=== PATIENT | female | born 1975 | race Caucasian/White ===

== ENCOUNTER 2016-08-07 13:21 | Emergency (ER) | payer BC ==
[2016-08-07 13:29] VITALS: BP 114/86
--- NOTE | 2016-08-07 13:29 | ER Document Report ---
ED Medical Screen (RME) - General Stated Complaint: COLD SYMPTOMS Mode of Arrival: Ambulatory Information source: Patient Notes: Pt c/o occ productive cough. Pt reports fever for past 2 days, as high as 102. TRAVEL OUTSIDE OF THE [place] IN LAST 30 DAYS: No - Related Data Allergies/Adverse Reactions: Penicillins Allergy (Mild, Verified 08/07/16 13:26) sulfamethoxazole [From Bactrim] Allergy (Verified 08/07/16 13:26) trimethoprim [From Bactrim] Allergy (Verified 08/07/16 13:26) Past Medical History - Social History Family history: DM, Thyroid Disfunction, Other - scoliosis Endocrine Medical History: Reports: Hx Hypothyroidism Psychiatric Medical History: Reports: Hx Depression Past Surgical History: Reports: Hx Abdominal Surgery, Hx Section - 2, Hx Gynecologic Surgery - LEEP, Hx Umbilical Hernia - Immunizations Hx Diphtheria, Pertussis, Tetanus Vaccination: - unk Physical Exam - General General appearance: Appears well, Alert In distress: None - Respiratory Respiratory status: No respiratory distress
--- NOTE | 2016-08-07 13:38 | ER Document Report ---
[id number] 4d COLD SYMPTOMS Mode of Arrival: Ambulatory Notes: The patient is a 40-year-old female, current smoker, presents with 2 days of cough, intermittent fever and chest congestion. She is also having a small amount of watery diarrhea. She denies sick contacts, nasal congestion, nausea, vomiting, recent travel, abdominal pain, hemoptysis or rash. TRAVEL OUTSIDE OF THE [place] IN LAST 30 DAYS: No - Related Data Allergies/Adverse Reactions: Penicillins Allergy (Mild, Verified 08/07/16 13:26) sulfamethoxazole [From Bactrim] Allergy (Verified 08/07/16 13:26) trimethoprim [From Bactrim] Allergy (Verified 08/07/16 13:26) Past Medical History - General Information source: Patient - Social History Smoking Status: Current Every Day Smoker Chew tobacco use (# tins/day): No Smoking Education Provided: Yes - Patient counseled about smoking cessation for 5 minutes. Frequency of alcohol use: None Drug Abuse: None Family History: CVA, DM, Hypertension, Thyroid Disfunction Patient has suicidal ideation: No Patient has homicidal ideation: No Endocrine Medical History: Reports: Hx Hypothyroidism Psychiatric Medical History: Reports: Hx Depression Past Surgical History: Reports: Hx Abdominal Surgery, Hx Section - 2, Hx Gynecologic Surgery - LEEP, Hx Umbilical Hernia - Immunizations Hx Diphtheria, Pertussis, Tetanus Vaccination: - unk Hx Pneumococcal Vaccination: 08/01/00 Review of Systems - Review of Systems Notes: REVIEW OF SYSTEMS: CONSTITUTIONAL: +fevers, -chills EENT: Denies eye, ear, throat, or mouth pain or symptoms. Denies nasal or sinus congestion. CARDIOVASCULAR: Denies chest pain, syncope. RESPIRATORY: +cough, cold, and chest congestion. Denies shortness of breath, difficulty breathing, or wheezing. GASTROINTESTINAL: Denies abdominal pain. Denies nausea, vomiting, or diarrhea. Denies constipation. GENITOURINARY: Denies difficulty urinating, painful urination, burning, frequency, or blood in urine. MUSCULOSKELETAL: Denies neck or back pain or joint pain or swelling. SKIN: Denies rash or skin lesions. HEMATOLOGIC: Denies easy bruising or bleeding. LYMPHATIC: Denies swollen, enlarged glands. NEUROLOGICAL: Denies altered mental status or loss of consciousness. Denies headache. Denies weakness or paralysis or loss of use of either side. Denies problems with gait or speech. Denies sensory or motor loss. PSYCHIATRIC: Denies anxiety or stress or depression. ALL OTHER SYSTEMS REVIEWED AND NEGATIVE. Physical Exam - Vital signs Vitals: Temp Pulse Resp BP Pulse Ox 98.0 F 99 20 114/86 H 97 08/07/16 13:27 08/07/16 13:27 08/07/16 13:27 08/07/16 13:27 08/07/16 13:27 - Notes Notes: PHYSICAL EXAMINATION: GENERAL: Well-appearing, well-nourished and in no acute distress. HEAD: Atraumatic, normocephalic. EYES: Pupils equal round and reactive to light, extraocular movements intact, sclera anicteric, conjunctiva are normal. ENT: nares patent, oropharynx clear without exudates. Moist mucous membranes. NECK: Normal range of motion, supple without lymphadenopathy LUNGS: Mild end expiratory wheezing. No increased work of breathing. HEART: Regular rate and rhythm without murmurs ABDOMEN: Soft, nontender, normoactive bowel sounds. No guarding, no rebound. No masses appreciated. EXTREMITIES: Normal range of motion, no pitting or edema. No cyanosis. NEUROLOGICAL: Cranial nerves grossly intact. Normal speech, normal gait. Normal sensory, motor, and reflex exams. PSYCH: Normal mood, normal affect. SKIN: Warm, Dry, normal turgor, no rashes or lesions noted. Course - Re-evaluation Re-evalutation: No evidence of pneumonia on chest x-ray. Patient is in no respiratory distress. Will treat with prednisone and albuterol for viral bronchitis with return precautions. Also counseled patient about smoking cessation for 5 minutes. - Vital Signs Vital signs: Temp Pulse Resp BP Pulse Ox 98.0 F 99 16 114/86 H 97 08/07/16 13:27 08/07/16 13:27 08/07/16 13:45 08/07/16 13:27 08/07/16 13:27 - Diagnostic Test Radiology reviewed: Image reviewed, Reports reviewed Radiology results interpreted by me: NAD Discharge - Discharge Clinical Impression: Viral bronchitis Condition: Good Disposition: HOME, SELF-CARE Additional Instructions: UPPER RESPIRATORY ILLNESS: You have a viral infection of the respiratory passages -- a "cold." This common infection causes nasal congestion, drainage, and often sore throat and cough. It is highly contagious. The disease usually lasts about 10 to 14 days. There is no "cure" for the viral infection -- it must run its course. If there is a complication, such as bacterial infection in the nose, sinuses, middle ear, or bronchial tubes, antibiotics may be required. The antibiotics won't affect the virus. Drink plenty of fluids. A humidifier may help. An expectorant medication or decongestant may make you more comfortable. Use acetaminophen or ibuprofen for fever or aches. See the doctor if fever persists over two days, if there is any significant worsening of your symptoms, or if you simply fail to improve as expected. BRONCHOSPASM: You have tightness in the bronchial tubes, called bronchospasm. This often occurs with bronchial infections. Allergies, inhaled chemicals, and polluted or cold air can also provoke bronchospasm. It's more likely in patients with asthma in the family. Emergency treatment of bronchospasm may include adrenaline shots or bronchodilator aerosol. You may feel lightheaded and have a rapid pulse for an hour or two. Rest and get plenty of fluids. At home, we'll treat you with a bronchodilator inhaler. Antibiotics and corticosteroids may be required for some patients. Until you recover, avoid chemical fumes, dusts, pollens, and exercising in very cold or dry air. If you smoke, stop now!! If you develop a fever, increased wheezing, chest pain, or severe shortness of breath, you should contact the doctor immediately. INHALED BRONCHODILATORS: You have received a treatment of and/or prescription for an inhaled bronchodilator -- a medication which stimulates the airways in the lung to dilate. This improves the flow of air in asthma, bronchitis, and emphysema. These medicines have some similarity to adrenaline, and can cause similar side effects: shakiness, racing heart, and a sense of nervousness. These side effects decrease with time. Contact your doctor if these side effects are severe. Do not over-use the medicine. Too-frequent use of the inhaler may make it ineffective. Call your doctor if the inhaler is not controlling your symptoms at the prescribed doses. STEROID MEDICATION: You have been given an injection of or oral medicine of the cortisone/ steroid class. This medication is used to control inflammation or allergy. Frank t is usually only given for a short period of time, until the acute process subsides. There are usually no side effects from short-term use of cortisone-like medications. Some persons feel an increased sense of well-being and are not sleepy at bedtime. Long-term use of cortisone medications is best avoided, unless required for a severe condition. If your condition does not remit, or relapses after the course of corticosteroid medication, you should consult your physician. USE OF ACETAMINOPHEN (Tylenol): Acetaminophen may be taken for pain relief or fever control. It's much safer than aspirin, offering a wider range of "safe" dosages. It is safe during . Some brand names are Tylenol, Panadol, Datril, Anacin 3, Tempra, and Liquiprin. Acetaminophen can be repeated every four hours. The following are maximum recommended dosages: >89 pounds or adults 650 mg to 900 mg Acetaminophen can be repeated every four hours. Maximum dose not to exceed 4000 mg a day. SMOKING: If you smoke, you should stop smoking. The tar and chemicals in cigarette smoke are harmful. Smoking has been shown to cause: emphysema chronic bronchitis lung cancer mouth and throat cancer stomach and pancreas cancer premature aging defects In addition, smoking increases ear and lung infections in children of smokers. FOLLOW-UP CARE: If you have been referred to a physician for follow-up care, call the physician s office for an appointment as you were instructed or within the next two days. If you experience worsening or a significant change in your symptoms, notify the physician immediately or return to the Emergency Department at any time for re-evaluation. Prescriptions: Albuterol Sulfate [Proair HFA Inhalation Aerosol 8.5 gm MDI] 2 puff IH Q4H PRN # 1 mdi PRN Reason: Prednisone 50 mg PO DAILY #5 tablet Forms: Return to Work
[2016-08-07] MEDS ORDERED: IPRATROPIUM/ALBUTEROL 0.5-2.5 MG/3 ML AMPUL NEB ONE (14:02)
[2016-08-07] MEDS ORDERED: PREDNISONE 20 MG TABLET PO ONE (14:02)
== END 2016-08-07 15:06 | disposition home or self-care (01) ==
LOC: ER 13:21
DX: J20.8 Acute bronchitis due to other specified organisms (principal); F17.200 Nicotine dependence, unspecified, uncomplicated; Z88.0 Allergy status to penicillin; Z88.3 Allergy status to other anti-infective agents
CPT/HCPCS: 94640; 99283; 71020; J7512; J7620

== ENCOUNTER 2016-10-06 04:05 | Emergency (ER) | payer BC ==
[2016-10-06] MEDS ORDERED: HYDROCODONE/ACETAMINOPHEN 5-325 MG 6 TAB/DSPK PO PRN (04:41)
[2016-10-06] MEDS ORDERED: IBUPROFEN 600 MG TABLET PO ONE (04:41)
[2016-10-06] MEDS ORDERED: CLINDAMYCIN HCL 150 MG CAPSULE PO ONE (04:41)
--- NOTE | 2016-10-06 04:42 | ER Document Report ---
ED General - General Chief Complaint: Toothache Stated Complaint: TOOTHACHE Notes: Patient is a 40-year-old female who presents with complaints of dull, constant, throbbing pain in the left lower molar that has been present for the past 1 week. States the pain is getting progressively worse since onset. She has not yet seen a dentist for this complaint but states she plans on contacting multiple dentist today to see where she can get in most quickly. She has not noted any significant facial swelling. No difficulty swallowing or breathing. Nothing improves her pain. States that eating or drinking worsens the pain. She is not had any fever. Denies history of similar symptoms in the past. TRAVEL OUTSIDE OF THE [place] IN LAST 30 DAYS: No - Related Data Allergies/Adverse Reactions: Penicillins Allergy (Mild, Verified 08/07/16 13:26) sulfamethoxazole [From Bactrim] Allergy (Verified 08/07/16 13:26) trimethoprim [From Bactrim] Allergy (Verified 08/07/16 13:26) Past Medical History - Social History Smoking Status: Unknown if Ever Smoked Family History: CVA, DM, Hypertension, Thyroid Disfunction Patient has suicidal ideation: No Patient has homicidal ideation: No Endocrine Medical History: Reports: Hx Hypothyroidism Renal/ Medical History: Denies: Hx Peritoneal Dialysis Psychiatric Medical History: Reports: Hx Depression Past Surgical History: Reports: Hx Abdominal Surgery - umbilical hernia x2, Hx Section - 2, Hx Gynecologic Surgery - LEEP, Hx Umbilical Hernia - Immunizations Hx Diphtheria, Pertussis, Tetanus Vaccination: - unk Hx Pneumococcal Vaccination: 08/01/00 Physical Exam - Vital signs Vitals: Pulse Resp BP Pulse Ox 76 20 145/88 H 99 10/06/16 04:57 10/06/16 04:57 10/06/16 04:57 10/06/16 04:57 Course - Re-evaluation Re-evalutation: 10/06/16 04:41 Presentation is most consistent with likely an infected tooth. Airway is patent. Vitals within normal limits. Patient is able swallow without any difficulty. There is no significant facial swelling. Patient will be started on antibiotics and a limited number of pain medications. I've instructed to follow-up with dentistry as earliest ability for definitive management. Return precautions and follow-up recommendations have been discussed at length. - Vital Signs Vital signs: Temp Pulse Resp BP Pulse Ox 76 20 145/88 H 99 10/06/16 04:57 10/06/16 04:57 10/06/16 04:57 10/06/16 04:57 Discharge - Discharge Clinical Impression: Pain, dental Condition: Good Disposition: HOME, SELF-CARE Additional Instructions: You have been seen for dental pain. It is very important that you follow-up with a dentist for definitive care. Please return if you develop fever greater than 101, swelling in your face, vomiting, difficulty breathing or swallowing, or any other symptoms that are concerning to you. For pain you should take ibuprofen 600 mg every 6 hours as needed. Prescriptions: Clindamycin HCl 300 mg PO TID #21 capsule Forms: Return to Work
[2016-10-06 05:00] VITALS: BP 145/88
== END 2016-10-06 05:00 | disposition home or self-care (01) ==
LOC: ER 04:05
DX: K08.9 Disorder of teeth and supporting structures, unspecified (principal); E03.9 Hypothyroidism, unspecified; Z88.0 Allergy status to penicillin; Z88.3 Allergy status to other anti-infective agents
CPT/HCPCS: 99282

== ENCOUNTER 2016-10-07 18:34 | Emergency (ER) | payer BC ==
[2016-10-07 19:01] VITALS: BP 167/83
--- NOTE | 2016-10-07 19:06 | ER Document Report ---
ED Medical Screen (RME) - General Stated Complaint: TOOTH PAIN Notes: Patient is a 40-year-old female who returns emergency department with tooth pain. Patient states that she was evaluated here morning of October 06. She was sent home with oral clindamycin that she's been taking as well as 6 Omega and Motrin. Patient states that she's been compliant with antibiotic still has pain in the jaw. Denies any fevers I have greeted and performed a rapid initial assessment of this patient. A comprehensive ED assessment and evaluation of the patient, analysis of test results and completion of the medical decision making process will be conducted by additional ED providers. TRAVEL OUTSIDE OF THE [place] IN LAST 30 DAYS: No - Related Data Allergies/Adverse Reactions: Penicillins Allergy (Mild, Verified 10/07/16 19:04) sulfamethoxazole [From Bactrim] Allergy (Verified 10/07/16 19:04) trimethoprim [From Bactrim] Allergy (Verified 10/07/16 19:04) Past Medical History - Social History Family history: DM, Thyroid Disfunction, Other - scoliosis Endocrine Medical History: Reports: Hx Hypothyroidism Renal/ Medical History: Denies: Hx Peritoneal Dialysis Psychiatric Medical History: Reports: Hx Depression Past Surgical History: Reports: Hx Abdominal Surgery, Hx Section - 2, Hx Gynecologic Surgery - LEEP, Hx Umbilical Hernia - Immunizations Hx Diphtheria, Pertussis, Tetanus Vaccination: - unk Physical Exam - Vital signs Vitals: Temp Pulse Resp BP Pulse Ox 98.3 F 56 L 20 167/83 H 100 10/07/16 19:00 10/07/16 19:00 10/07/16 19:00 10/07/16 19:00 10/07/16 19:00 Course - Vital Signs Vital signs: Temp Pulse Resp BP Pulse Ox 98.3 F 56 L 20 167/83 H 100 10/07/16 19:00 10/07/16 19:00 10/07/16 19:00 10/07/16 19:00 10/07/16 19:00
[2016-10-07] MEDS ORDERED: HYDROCODONE/ACETAMINOPHEN 10-325 MG TABLET PO ONE (21:01)
--- NOTE | 2016-10-07 21:02 | ER Document Report ---
ED Oral Problem - General Mode of Arrival: Ambulatory Information source: Patient TRAVEL OUTSIDE OF THE [place] IN LAST 30 DAYS: No - HPI Similar symptoms previously: Yes Recently seen / treated by doctor/dentist: Yes - General Chief Complaint: Toothache Stated Complaint: TOOTH PAIN Notes: Patient is a 40-year-old female that presents to the emergency department today with complaints of tooth pain. Patient was seen yesterday for a tooth fracture to antibiotics. Patient states she filled her prescription and has been taking it as prescribed. Patient states she has a dentist appointment Tuesday. Patient denies any shortness of breath. (AARON DEJESUS) - Related Data Allergies/Adverse Reactions: Penicillins Allergy (Mild, Verified 10/07/16 19:04) sulfamethoxazole [From Bactrim] Allergy (Verified 10/07/16 19:04) trimethoprim [From Bactrim] Allergy (Verified 10/07/16 19:04) Past Medical History - General Information source: Patient - Social History Smoking Status: Current Every Day Smoker Cigarette use (# per day): Yes Chew tobacco use (# tins/day): No Frequency of alcohol use: None Drug Abuse: None Lives with: Family Family History: Reviewed & Not Pertinent, CVA, DM, Hypertension, Thyroid Disfunction Patient has suicidal ideation: No Patient has homicidal ideation: No Endocrine Medical History: Reports: Hx Hypothyroidism Psychiatric Medical History: Reports: Hx Depression Past Surgical History: Reports: Hx Abdominal Surgery, Hx Section - 2, Hx Gynecologic Surgery - LEEP, Hx Umbilical Hernia - Immunizations Hx Diphtheria, Pertussis, Tetanus Vaccination: - unk Hx Pneumococcal Vaccination: 08/01/00 Review of Systems - Review of Systems Constitutional: No symptoms reported EENT: See HPI, Mouth pain, Dental problem Cardiovascular: No symptoms reported Respiratory: denies: Short of breath Gastrointestinal: No symptoms reported Genitourinary: No symptoms reported Female Genitourinary: No symptoms reported Musculoskeletal: No symptoms reported Skin: No symptoms reported Hematologic/Lymphatic: No symptoms reported Neurological/Psychological: No symptoms reported -: Yes All other systems reviewed and negative Physical Exam - General General appearance: Appears well In distress: None - HEENT Head: Normocephalic, Atraumatic Eyes: Normal - Respiratory Respiratory status: No respiratory distress - Cardiovascular Rhythm: Regular - Abdominal Inspection: Normal Distension: No distension - Extremities General upper extremity: Normal inspection, Normal ROM. No: Edema General lower extremity: Normal inspection, Normal ROM. No: Edema - Neurological Neuro grossly intact: Yes Cognition: Normal Orientation: AAOx4 Speech: Normal - Psychological Associated symptoms: Normal affect, Normal mood - Skin Skin Temperature: Warm Skin Moisture: Dry Skin Color: Normal - Vital signs Vitals: Temp Pulse Resp BP Pulse Ox 98.3 F 56 L 20 167/83 H 100 10/07/16 19:00 10/07/16 19:00 10/07/16 19:00 10/07/16 19:00 10/07/16 19:00 - HEENT Notes: Left upper molar fractured without definitive abscess or drainage. (AARON DEJESUS) Course - Re-evaluation Re-evalutation: 10/07/16 21:02 I personally performed the services described in the documentation, reviewed and edited the documentation which was dictated to my scribe in my presence, and it accurately records my words and actions. seen and evaluated in the ER yesterday given antibiotic for dental pain and 6 [place]. Patient says she took a little cold and she still having pain. She has [employer] of does not a primary care physician and has a dental follow-up next week. She has multiple decay throughout her teeth and has had multiple dental work done. She is well-appearing nontoxic no trismus stridor or drooling no facial swelling abscess drainage trach is midline neck is supple heart lungs and abdomen are clear. I recommended ibuprofen after she was given the [place] gave her dose [place] here she is take Tylenol and Motrin gave her instructions for the walk-in dental clinic in [place] otherwise any ongoing management of her chronic dental pain needs to be by the primary care physician or pain specialist or dental physician and discussed reasons for ED return sooner 10/07/16 21:05 (FORTUNATO MERCADO) - Vital Signs Vital signs: Temp Pulse Resp BP Pulse Ox 98.3 F 56 L 20 167/83 H 100 10/07/16 19:00 10/07/16 19:00 10/07/16 19:00 10/07/16 19:00 10/07/16 19:00 Discharge - Discharge Clinical Impression: Toothache Condition: Stable Disposition: HOME, SELF-CARE Instructions: Toothache (OM) Additional Instructions: Dental pain Follow-up with your dental physician or the walk-in clinic in [place] which we've given you information on must establish a primary care physician use Tylenol Motrin for the pain as well as you have an ulcer or bleeding problems If you develop high fever with chills, worsening pain, or increasing swelling in the area, see a dentist or oral surgeon immediately or return to the Emergency Department immediately. Scribe Documentation - Scribe Written by Zen:: Zen Lee, 10/07/2016, [id number] acting as scribe for :: Juan C
== END 2016-10-07 21:10 | disposition home or self-care (01) ==
LOC: ER 18:34
DX: K02.9 Dental caries, unspecified (principal); K08.89 Other specified disorders of teeth and supporting structures; Z88.0 Allergy status to penicillin; Z88.1 Allergy status to other antibiotic agents; F17.210 Nicotine dependence, cigarettes, uncomplicated
CPT/HCPCS: 99282

== ENCOUNTER 2017-02-19 15:33 | Emergency (ER) | payer SELFPAY ==
--- NOTE | 2017-02-19 16:28 | ER Document Report ---
ED Medical Screen (RME) - General Chief Complaint: Pain All Over Stated Complaint: BODY PAIN Time Seen by Provider: 02/19/17 16:14 Mode of Arrival: Ambulatory Information source: Patient TRAVEL OUTSIDE OF THE [place] IN LAST 30 DAYS: No - HPI Onset: Other - 2 DAYS Onset/Duration: Sudden Quality of pain: Achy Severity: Moderate Associated Symptoms: Other - FATIGUE Exacerbated by: Other - ANY ACTIVITY Relieved by: Other - REST Similar symptoms previously: Yes Recently seen / treated by doctor: No - CAN'T AFFORD IT, INSURANCE RAN OUT - Related Data Frequency of alcohol use: Rare Drug Abuse: None Allergies/Adverse Reactions: Penicillins Allergy (Mild, Verified 02/19/17 15:54) sulfamethoxazole [From Bactrim] Allergy (Verified 02/19/17 15:54) trimethoprim [From Bactrim] Allergy (Verified 02/19/17 15:54) Past Medical History - General Information source: Patient - Social History Chew tobacco use (# tins/day): No Frequency of alcohol use: None Drug Abuse: None Lives with: Spouse/Significant other Family history: DM, Thyroid Disfunction, Other - scoliosis - Past Medical History Cardiac Medical History: Reports: None Pulmonary Medical History: Reports: None EENT Medical History: Reports: None Neurological Medical History: Reports: None Endocrine Medical History: Reports: Hx Hypothyroidism Renal/ Medical History: Denies: Hx Peritoneal Dialysis Malignancy Medical History: Reports: None GI Medical History: Reports: None Musculoskeltal Medical History: Reports None Psychiatric Medical History: Reports: Hx Depression Past Surgical History: Reports: Hx Abdominal Surgery, Hx Section - 2, Hx Gynecologic Surgery - LEEP, Hx Umbilical Hernia - Immunizations Hx Diphtheria, Pertussis, Tetanus Vaccination: - unk Review of Systems - Review of Systems Constitutional: See HPI EENT: No symptoms reported Cardiovascular: No symptoms reported Respiratory: No symptoms reported Gastrointestinal: No symptoms reported Genitourinary: No symptoms reported Musculoskeletal: See HPI Skin: No symptoms reported Neurological/Psychological: No symptoms reported Physical Exam - Vital signs Vitals: Temp Pulse Resp BP Pulse Ox 98.5 F 94 20 147/102 H 99 02/19/17 15:39 02/19/17 15:39 02/19/17 15:39 02/19/17 15:39 02/19/17 15:39 Interpretation: Hypertensive - General General appearance: Appears well, Alert In distress: None - HEENT Head: Normocephalic Eyes: Normal, Pale conjunctiva - SLIGHT Ears: Normal Nasal: Normal Mouth/Lips: Normal Mucous membranes: Normal Pharynx: Normal Neck: Normal - Respiratory Respiratory status: No respiratory distress - Cardiovascular Rhythm: Regular - Abdominal Inspection: Normal Distension: No distension - Extremities General upper extremity: Normal inspection General lower extremity: Edema - 1+ BILAT. - Neurological Neuro grossly intact: Yes Cognition: Normal Orientation: AAOx4 - Psychological Associated symptoms: Normal affect, Normal mood - Skin Skin Temperature: Warm Skin Moisture: Dry Skin Color: Normal Skin Turgor: Elastic Course - Vital Signs Vital signs: Temp Pulse Resp BP Pulse Ox 98.5 F 94 20 147/102 H 99 02/19/17 15:39 02/19/17 15:39 02/19/17 15:39 02/19/17 15:39 02/19/17 15:39
[2017-02-19 16:40] LABS: ABSOLUTE BASOPHILS # (AUTO) 0.1 10^3/uL (0.0-0.2); ABSOLUTE EOSINOPHILS # (AUTO) 0.2 10^3/uL (0.0-0.6); ABSOLUTE LYMPHOCYTES (AUTO) 2.1 10^3/uL (0.5-4.7); ABSOLUTE MONOCYTES (AUTO) 0.3 10^3/uL (0.1-1.4); ABSOLUTE NEUT (AUTO) 2.6 10^3/uL (1.7-8.2); BASOPHILS % (AUTO) 1.2 % (0-2); EOSINOPHILS % (AUTO) 3.5 % (0-6); HEMATOCRIT 33.6 % (36.0-47.0); HEMOGLOBIN 11.5 g/dL (12.0-15.5); HGB HCT DIFFERENCE 0.9; LYMPHOCYTES % (AUTO) 40.8 % (13-45); MEAN CORPUSCULAR HEMOGLOBIN 33.7 pg (27.0-33.4); MEAN CORPUSCULAR HGB CONC 34.3 g/dL (32.0-36.0); MEAN CORPUSCULAR VOLUME 98 fl (80-97); MONOCYTES % (AUTO) 5.3 % (3-13); RED BLOOD COUNT 3.42 10^6/uL (3.72-5.28); RED CELL DISTRIBUTION WIDTH 14.6 % (11.5-14.0); SEGMENTED NEUTROPHILS % (AUTO) 49.2 % (42-78); WHITE BLOOD COUNT 5.3 10^3/uL (4.0-10.5)
--- NOTE | 2017-02-19 16:44 | ER Document Report ---
ED General Pain - General Chief Complaint: Pain All Over Stated Complaint: BODY PAIN Time Seen by Provider: 02/19/17 16:14 Mode of Arrival: Ambulatory Information source: Patient Notes: Patient is a 41-year-old female who presents to the ER today for multiple complaints including swelling and drainage from both of her eyes7 days with some sinus pressure . Patient has been taking Claritin for this and states that it is helping a little bit but it does not seem to be getting better. Patient also complains of numbness and tingling to her hands and all of her body aches. She states that she has thyroid issues that have not been able to take her Synthroid for 2 months because she has not been able to follow-up with due to lack of insurance. Patient states that she was on levothyroxine 100 mcg. She states that this has had her admitted to the hospital before and she thinks that is why her muscles ache and her hands are numb and tingly because this is happened to her in the past. She denies any fevers, chills, nausea, vomiting, diarrhea or other symptoms. TRAVEL OUTSIDE OF THE [place] IN LAST 30 DAYS: No - Related Data Allergies/Adverse Reactions: Penicillins Allergy (Mild, Verified 02/19/17 15:54) sulfamethoxazole [From Bactrim] Allergy (Verified 02/19/17 15:54) trimethoprim [From Bactrim] Allergy (Verified 02/19/17 15:54) Past Medical History - General Information source: Patient - Social History Smoking Status: Current Every Day Smoker Chew tobacco use (# tins/day): No Frequency of alcohol use: None Drug Abuse: None Lives with: Spouse/Significant other Family History: Reviewed & Not Pertinent, CVA, DM, Hypertension, Thyroid Disfunction - Past Medical History Cardiac Medical History: Reports: None Pulmonary Medical History: Reports: None EENT Medical History: Reports: None Neurological Medical History: Reports: None Endocrine Medical History: Reports: Hx Hypothyroidism Renal/ Medical History: Denies: Hx Peritoneal Dialysis Malignancy Medical History: Reports: None GI Medical History: Reports: None Musculoskeltal Medical History: Reports None Psychiatric Medical History: Reports: Hx Depression Past Surgical History: Reports: Hx Abdominal Surgery, Hx Section - 2, Hx Gynecologic Surgery - LEEP, Hx Umbilical Hernia - Immunizations Hx Diphtheria, Pertussis, Tetanus Vaccination: - unk Hx Pneumococcal Vaccination: 08/01/00 Review of Systems - Review of Systems Constitutional: No symptoms reported EENT: See HPI Cardiovascular: No symptoms reported Respiratory: No symptoms reported Gastrointestinal: No symptoms reported Genitourinary: No symptoms reported Female Genitourinary: No symptoms reported Musculoskeletal: See HPI Skin: See HPI Hematologic/Lymphatic: No symptoms reported Neurological/Psychological: See HPI Physical Exam - Vital signs Vitals: Temp Pulse Resp BP Pulse Ox 98.5 F 94 20 147/102 H 99 02/19/17 15:39 02/19/17 15:39 02/19/17 15:39 02/19/17 15:39 02/19/17 15:39 - Notes Notes: PHYSICAL EXAMINATION: GENERAL: Well-appearing and in no acute distress. HEAD: Atraumatic, normocephalic. EYES: Pupils equal round and reactive to light, extraocular movements intact, sclera anicteric, eyelids edematous bilaterally, conjunctiva erythematous bilaterally ENT: ear canals without erythema or foreign body, TMs pearly kahn with good bony landmarks, nares patent, oropharynx clear without exudates. Moist mucous membranes. maxillary and frontal sinuses tender to palpation NECK: Normal range of motion, supple without lymphadenopathy LUNGS: CTAB and equal. No wheezes rales or rhonchi. HEART: Regular rate and rhythm without murmurs ABDOMEN: Soft, no tenderness. No guarding, no rebound BACK: no vertebral tenderness, normal ROM GI/: no CVA tenderness EXTREMITIES: Normal range of motion, no pitting edema. No cyanosis. NEUROLOGICAL: Cranial nerves grossly intact. Normal sensory/motor exams. PSYCH: Normal mood, normal affect. SKIN: Warm, Dry, normal turgor, no rashes or lesions noted Course - Re-evaluation Re-evalutation: 02/19/17 18:18 pt's TSH is 162. Called and spoke to Dr. Parikh, training and development head at [facility] who states pt can safely be started back on synthroid 100mcg now and does not sound like they need admission with clinical picture and vital signs. pt looks otherwise well other than puffy eyes. 02/19/17 19:11 - Vital Signs Vital signs: Temp Pulse Resp BP Pulse Ox 98.5 F 94 20 147/102 H 99 02/19/17 15:39 02/19/17 15:39 02/19/17 15:39 02/19/17 15:39 02/19/17 15:39 - Laboratory Result Diagrams: 02/19/17 16:20 02/19/17 16:20 Laboratory results interpreted by me: 02/19/17 02/19/17 02/19/17 16:20 16:20 16:20 RBC 3.42 L Hgb 11.5 L Hct 33.6 L MCV 98 H MCH 33.7 H RDW 14.6 H Est GFR (Non-Af Amer) 50 L AST 84 H ALT 59 H TSH 164.00 H Free T4 Free T3 pg/mL Urine Nitrite Ur Leukocyte Esterase 02/19/17 02/19/17 16:20 16:20 RBC Hgb Hct MCV MCH RDW Est GFR (Non-Af Amer) AST ALT TSH Free T4 < 0.07 L Free T3 pg/mL 0.65 L Urine Nitrite POSITIVE H Ur Leukocyte Esterase TRACE H Discharge - Discharge Clinical Impression: Hypothyroidism Qualifiers: Hypothyroidism type: unspecified Qualified Code(s): E03.9 - Hypothyroidism, unspecified UTI (urinary tract infection) Qualifiers: Urinary tract infection type: site unspecified Hematuria presence: without hematuria Qualified Code(s): N39.0 - Urinary tract infection, site not specified Condition: Stable Disposition: HOME, SELF-CARE Additional Instructions: Return immediately for any new or worsening symptoms. Follow up with primary care provider, call tomorrow to make followup appointment. Prescriptions: Cephalexin [Cephalexin 500 MG Capsule] 1 cap PO QID #28 cap Levothyroxine Sodium [Synthroid 0.1 mg Tablet] 0.1 mg PO DAILY #30 tablet Forms: Return to Work Referrals: [facility] [Provider Group] - Follow up as needed
[2017-02-19 16:47] LABS: APPEARANCE,URINE SLIGHTLY-CLOUDY; BILIRUBIN,URINE NEGATIVE (NEGATIVE); GLUCOSE, URINE NEGATIVE (NEGATIVE); KETONES,URINE NEGATIVE (NEGATIVE); LEUKOCYTE ESTERASE,URINE TRACE (NEGATIVE); NITRITE,URINE POSITIVE (NEGATIVE); PROTEIN,URINE NEGATIVE (NEGATIVE); UROBILINOGEN,URINE NEGATIVE mg/dL (<2.0)
[2017-02-19 16:57] LABS: ALANINE AMINOTRANSFERASE 59 U/L (9-52); ALBUMIN 4.7 g/dL (3.5-5.0); ALKALINE PHOSPHATASE 57 U/L (38-126); ANION GAP 11 (5-19); ASPARTATE AMINO TRANSFERASE 84 U/L (14-36); BILIRUBIN,DIRECT 0.3 mg/dL (0.0-0.4); BILIRUBIN,TOTAL 0.6 mg/dL (0.2-1.3); BLOOD UREA NITROGEN 14 mg/dL (7-20); CALCIUM 9.4 mg/dL (8.4-10.2); CARBON DIOXIDE 23 mmol/L (22-30); CHLORIDE 106 mmol/L (98-107); CREATININE RESULT 1.19 mg/dL (0.52-1.25); GLUCOSE 85 mg/dL (75-110); POTASSIUM 3.9 mmol/L (3.6-5.0); SODIUM 139.9 mmol/L (137-145); TOTAL PROTEIN 7.7 g/dL (6.3-8.2)
[2017-02-19 17:17] LABS: ERYTHROCYTE SEDIMENTATION RATE 16 mm/hr (0-20)
[2017-02-19] MEDS ORDERED: CEPHALEXIN 500 MG CAPSULE PO ONE ×2 (17:44→19:16)
[2017-02-19] MEDS ORDERED: POLYMYXIN B SULFATE/TMP OPH SOLN 10 ML OU ONE (18:22)
[2017-02-19] MEDS ORDERED: POLYMYXIN B SULFATE/TMP OPH SOLN 10 ML ONE (19:02)
[2017-02-19 19:04] LABS: FREE T3 0.65 pg/mL (2.77-5.27)
[2017-02-19] MEDS ORDERED: LEVOTHYROXINE SODIUM 0.1 MG TABLET PO ONE ×2 (19:07→19:16)
[2017-02-19 19:36] VITALS: BP 141/95
== END 2017-02-19 19:30 | disposition home or self-care (01) ==
LOC: ER 15:33
DX: E03.9 Hypothyroidism, unspecified (principal); T38.1X6A Underdosing of thyroid hormones and substitutes, initial encounter; Z91.128 Patient's intentional underdosing of medication regimen for other reason; Z91.14 Patient's other noncompliance with medication regimen; N39.0 Urinary tract infection, site not specified; J34.89 Other specified disorders of nose and nasal sinuses; R20.0 Anesthesia of skin; R20.2 Paresthesia of skin; M79.1 Myalgia; H02.846 Edema of left eye, unspecified eyelid; H02.843 Edema of right eye, unspecified eyelid; Z88.0 Allergy status to penicillin; Z88.1 Allergy status to other antibiotic agents; F17.200 Nicotine dependence, unspecified, uncomplicated
CPT/HCPCS: 99283; 36415; 84439; 84443; 85025; 85652; 80053; 81001; 84481; J3490

== ENCOUNTER 2017-09-24 12:05 | Emergency (ER) | payer SELFPAY ==
--- NOTE | 2017-09-24 12:17 | ER Document Report ---
ED Medical Screen (RME) - General Chief Complaint: Cough Stated Complaint: COUGH,CONGESTION,DIARRHEA Time Seen by Provider: 09/24/17 12:15 Mode of Arrival: Ambulatory Information source: Patient TRAVEL OUTSIDE OF THE [place] IN LAST 30 DAYS: No - HPI Patient complains to provider of: cough, congestion Onset: Yesterday - Pt. with c/o cough and congestion for the past day. Denies fever - Related Data Allergies/Adverse Reactions: Penicillins Allergy (Mild, Verified 02/19/17 15:54) sulfamethoxazole [From Bactrim] Allergy (Verified 02/19/17 15:54) trimethoprim [From Bactrim] Allergy (Verified 02/19/17 15:54) Past Medical History - Social History Chew tobacco use (# tins/day): No Family history: DM, Thyroid Disfunction, Other - scoliosis Endocrine Medical History: Reports: Hx Hypothyroidism Renal/ Medical History: Denies: Hx Peritoneal Dialysis Psychiatric Medical History: Reports: Hx Depression Past Surgical History: Reports: Hx Abdominal Surgery - hernia, Hx Section - 2, Hx Gynecologic Surgery - LEEP, Hx Umbilical Hernia - Immunizations Hx Diphtheria, Pertussis, Tetanus Vaccination: - unk Physical Exam - Vital signs Vitals: Temp Pulse Resp BP Pulse Ox 98.6 F 83 20 131/88 H 100 09/24/17 12:11 09/24/17 12:11 09/24/17 12:11 09/24/17 12:11 09/24/17 12:11 Course - Vital Signs Vital signs: Temp Pulse Resp BP Pulse Ox 98.6 F 83 20 131/88 H 100 09/24/17 12:11 09/24/17 12:11 09/24/17 12:11 09/24/17 12:11 09/24/17 12:11
[2017-09-24 12:45] LABS: ABSOLUTE BASOPHILS # (AUTO) 0.1 10^3/uL (0.0-0.2); ABSOLUTE EOSINOPHILS # (AUTO) 0.1 10^3/uL (0.0-0.6); ABSOLUTE LYMPHOCYTES (AUTO) 2.5 10^3/uL (0.5-4.7); ABSOLUTE MONOCYTES (AUTO) 0.4 10^3/uL (0.1-1.4); ABSOLUTE NEUT (AUTO) 4.5 10^3/uL (1.7-8.2); BASOPHILS % (AUTO) 1.2 % (0-2); EOSINOPHILS % (AUTO) 1.7 % (0-6); HEMATOCRIT 39.8 % (36.0-47.0); HEMOGLOBIN 13.7 g/dL (12.0-15.5); LYMPHOCYTES % (AUTO) 32.6 % (13-45); MEAN CORPUSCULAR HEMOGLOBIN 30.9 pg (27.0-33.4); MEAN CORPUSCULAR HGB CONC 34.4 g/dL (32.0-36.0); MEAN CORPUSCULAR VOLUME 90 fl (80-97); MONOCYTES % (AUTO) 5.4 % (3-13); PLATELET COUNT 235 10^3/uL (150-450); RED BLOOD COUNT 4.43 10^6/uL (3.72-5.28); RED CELL DISTRIBUTION WIDTH 14.1 % (11.5-14.0); SEGMENTED NEUTROPHILS % (AUTO) 59.1 % (42-78); TOTAL CELLS COUNTED % (AUTO) 100 %; WHITE BLOOD COUNT 7.6 10^3/uL (4.0-10.5)
[2017-09-24 13:01] LABS: A TYPE INFLUENZA AG NEGATIVE (NEGATIVE); B INFLUENZA AG NEGATIVE (NEGATIVE)
--- NOTE | 2017-09-24 13:07 | RADIOLOGY REPORT (SQ) ---
EXAM DESCRIPTION: CHEST PA/LAT COMPLETED DATE/TIME: 09/24/2017 12:39 pm REASON FOR STUDY: cough COMPARISON: 08/07/2016 EXAM PARAMETERS: NUMBER OF VIEWS: two views TECHNIQUE: Digital Frontal and Lateral radiographic views of the chest acquired. RADIATION DOSE: NA LIMITATIONS: none FINDINGS: LUNGS AND PLEURA: No opacities, masses or pneumothorax. No pleural effusion. MEDIASTINUM AND HILAR STRUCTURES: No masses or contour abnormalities. HEART AND VASCULAR STRUCTURES: Heart normal size. No evidence for failure. BONES: Stable marked scoliosis HARDWARE: None in the chest. OTHER: No other significant finding. IMPRESSION: NO SIGNIFICANT RADIOGRAPHIC FINDING IN THE CHEST. TECHNICAL DOCUMENTATION: JOB ID: [id number] [employer]- All Rights Reserved Reading location - IP/workstation name: [email or web address]
[2017-09-24 13:09] LABS: ALANINE AMINOTRANSFERASE 35 U/L (9-52); ALBUMIN 5.1 g/dL (3.5-5.0); ALKALINE PHOSPHATASE 62 U/L (38-126); ANION GAP 12 (5-19); ASPARTATE AMINO TRANSFERASE 24 U/L (14-36); BILIRUBIN,DIRECT 0.2 mg/dL (0.0-0.4); BILIRUBIN,TOTAL 0.7 mg/dL (0.2-1.3); BLOOD UREA NITROGEN 15 mg/dL (7-20); CALCIUM 9.7 mg/dL (8.4-10.2); CARBON DIOXIDE 21 mmol/L (22-30); CHLORIDE 108 mmol/L (98-107); GLUCOSE 123 mg/dL (75-110); POTASSIUM 4.2 mmol/L (3.6-5.0); SODIUM 141.3 mmol/L (137-145); TOTAL PROTEIN 7.5 g/dL (6.3-8.2)
[2017-09-24] MEDS ORDERED: IPRATROPIUM/ALBUTEROL 0.5-2.5 MG/3 ML AMPUL NEB ONE (14:14)
--- NOTE | 2017-09-24 14:41 | ER Document Report ---
HPI - HPI Patient complains to provider of: cough Pain Level: 4 Notes: 41-year-old female presents today with complaints of productive cough, nasal congestion and fatigue for a week and half. Patient is pack a day smoker. Has tried some Mucinex and Robitussin without relief. Eating and drinking without issues. Did not get the flu shot this year, states she thinks she may have had a flu about 10 days ago. Denies fevers, chills, chest pain, palpitations, shortness of breath, dyspnea, nausea, vomiting, diarrhea, abdominal pain, hematuria,blurred vision, double vision, loss of vision, speech changes, LH, dizziness, syncope, headaches, wheezing, ST, URI, neck pain, weakness, bowel or bladder dysfunction, saddle anesthesia, numbness or tingling in bilateral upper or lower extremities equally, muscle paralysis, weakness in bilateral upper or lower extremities equally or rash. . - ROS Notes: REVIEW OF SYSTEMS: CONSTITUTIONAL : Denies fever, chills, or sweats. Denies recent illness. EENT: Denies eye, ear, throat, or mouth pain or symptoms. Denies nasal or sinus congestion or discharge. Denies throat, tongue, or mouth swelling or difficulty swallowing. CARDIOVASCULAR: Denies chest pain. Denies palpitations or racing or irregular heart beat. Denies ankle edema. RESPIRATORY: reports cough, cold, or chest congestion. Denies shortness of breath, difficulty breathing, or wheezing. GASTROINTESTINAL: Denies abdominal pain or distention. Denies nausea, vomiting , or diarrhea. Denies blood in vomitus, stools, or per rectum. Denies black, tarry stools. Denies constipation. GENITOURINARY: Denies difficulty urinating, painful urination, burning, frequency, blood in urine, or discharge. FEMALE GENITOURINARY: Denies vaginal bleeding, heavy or abnormal periods, irregular periods. Denies vaginal discharge or odor. MUSCULOSKELETAL: Denies back or neck pain or stiffness. Denies joint pain or swelling. SKIN: Denies rash, lesions or sores. HEMATOLOGIC : Denies easy bruising or bleeding. LYMPHATIC: Denies swollen, enlarged glands. NEUROLOGICAL: Denies confusion or altered mental status. Denies passing out or loss of consciousness. Denies dizziness or lightheadedness. Denies headache. Denies weakness or paralysis or loss of use of either side. Denies problems with gait or speech. Denies sensory loss, numbness, or tingling. Denies seizures. PSYCHIATRIC: Denies anxiety or stress. Denies depression, suicidal ideation, or homicidal ideation. ALL OTHER SYSTEMS REVIEWED AND NEGATIVE. - CONSTITUTIONAL Constitutional: DENIES: Fever, Chills - EENT EENT: REPORTS: Sore Throat - NEURO Neurology: DENIES: Headache, Weakness, Vision blurred, Dizzinesss / Vertigo - RESPIRATORY Respiratory: REPORTS: Coughing - brownish - REPRODUCTIVE Reproductive: DENIES: : - MUSCULOSKELETAL Musculoskeletal: DENIES: Extremity pain Past Medical History - General Information source: Patient - Social History Smoking Status: Current Every Day Smoker Chew tobacco use (# tins/day): No Family History: Reviewed & Not Pertinent, CVA, DM, Hypertension, Thyroid Disfunction Patient has suicidal ideation: No Patient has homicidal ideation: No Endocrine Medical History: Reports: Hx Hypothyroidism Renal/ Medical History: Denies: Hx Peritoneal Dialysis Psychiatric Medical History: Reports: Hx Depression Past Surgical History: Reports: Hx Abdominal Surgery - hernia, Hx Section - 2, Hx Gynecologic Surgery - LEEP, Hx Umbilical Hernia - Immunizations Hx Diphtheria, Pertussis, Tetanus Vaccination: - unk Hx Pneumococcal Vaccination: 08/01/00 Vertical Provider Document - CONSTITUTIONAL Notes: PHYSICAL EXAMINATION: GENERAL: Well-appearing, well-nourished and in no acute distress. HEAD: Atraumatic, normocephalic. EYES: Pupils equal round and reactive to light, extraocular movements intact, conjunctiva are normal. ENT: Nares patent, oropharynx clear without exudates. Moist mucous membranes. NECK: Normal range of motion, supple without lymphadenopathy LUNGS: Diminished breath sounds in bilateral upper lobes, cleared after breathing treatment. Breath sounds clear to auscultation bilaterally and equal. No wheezes rales or rhonchi. HEART: Regular rate and rhythm without murmurs ABDOMEN: Soft, nontender, nondistended abdomen. No guarding, no rebound. No masses appreciated. Female : deferred Musculoskeletal: Normal range of motion, no pitting or edema. No cyanosis. NEUROLOGICAL: Cranial nerves grossly intact. Normal speech, normal gait. Normal sensory, motor exams PSYCH: Normal mood, normal affect. SKIN: Warm, Dry, normal turgor, no rashes or lesions noted. - INFECTION CONTROL TRAVEL OUTSIDE OF THE [place] IN LAST 30 DAYS: No - RESPIRATORY O2 Sat by Pulse Oximetry: 100 Course - Re-evaluation Re-evalutation: 09/24/17 14:39 Discussed the results of the radiology as well as the diagnosis at great length. X-ray negative for any acute findings per radiology. Patient find relief with DuoNeb. Start patient on antibiotics and she has been experiencing progressive symptoms with her cough. Will start her also on an oral steroid twice a day for 5 days. As well as a Ventolin inhaler and Tessalon Perles follow-up with her primary care within 3 days. discussed the need to return to the ER for any new or worsening sx. Patient understands to take the Rx as directed. All questions answered. Patient comfortable with the decision to go home. - Vital Signs Vital signs: Temp Pulse Resp BP Pulse Ox 98.6 F 83 20 131/88 H 100 09/24/17 12:11 09/24/17 12:11 09/24/17 12:11 09/24/17 12:11 09/24/17 12:11 - Laboratory Result Diagrams: 09/24/17 12:20 09/24/17 12:20 Laboratory results interpreted by me: 09/24/17 09/24/17 12:20 12:20 RDW 14.1 H Chloride 108 H Carbon Dioxide 21 L Est GFR (Non-Af Amer) 55 L Glucose 123 H Albumin 5.1 H Discharge - Discharge Clinical Impression: Acute bacterial bronchitis Condition: Good Disposition: HOME, SELF-CARE Instructions: Fever ([facility]), Upper Respiratory Illness ([facility]) Additional Instructions: bronchitis You have acute bronchitis. This disease is an infection or inflammation of the air passageways in your lungs. Symptoms usually include cough, low grade fever, shortness of breath, and wheezing. The cough usually persists for a couple of weeks. Most cases of bronchitis get better without antibiotics. We prescribe antibiotics when we believe bacteria are damaging your airways, or if there's high risk the bronchitis will worsen into pneumonia. Increase your fluid intake. A cool mist humidifier may make your lungs more comfortable. An expectorant (cough medicine that loosens phlegm) can help. If you smoke, STOP!!! Recovery from bronchitis can be somewhat slow, but you should see improvement within a day or two. Repeated episodes of bronchitis may result in lung damage -- for example, chronic bronchitis, recurrent pneumonias, or emphysema. Call the doctor if you develop increasing fever, shortness of breath, chest pain, bloody sputum, or otherwise worsen. If you have not improved at all after several days, contact the physician. Take medications as directed. Take all medications with food. increase oral hydration. [id number] ibuprofen Tylenol for any fevers or chills. Work note given. follow-up with PCP within 3 days. Return to the emergency room if symptoms become worse Return immediately for any new or worsening symptoms. Follow up with primary care provider, call tomorrow to make followup appointment. Forms: Return to Work Referrals: DE KRUSE MD [ACTIVE STAFF] - Follow up as needed
[2017-09-24 14:53] VITALS: BP 123/87
== END 2017-09-24 14:56 | disposition home or self-care (01) ==
LOC: ER 12:05
DX: J20.8 Acute bronchitis due to other specified organisms (principal); B96.89 Other specified bacterial agents as the cause of diseases classified elsewhere; J02.9 Acute pharyngitis, unspecified; R05 Cough; R53.83 Other fatigue; F17.200 Nicotine dependence, unspecified, uncomplicated
CPT/HCPCS: 94640; 99284; 36415; 85025; 80053; 87804; 71046; J7620

== ENCOUNTER 2018-01-12 20:33 | Emergency (ER) | payer SELFPAY ==
[2018-01-12] MEDS ORDERED: KETOROLAC TROMETHAMINE INJ/PF 30 MG/1 ML SDV IM ONE (22:24)
[2018-01-12] MEDS ORDERED: DIAZEPAM 5 MG TABLET PO ONE (22:25)
--- NOTE | 2018-01-12 22:46 | ER Document Report ---
HPI - HPI Pain Level: 5 Notes: Patient is a 42-year-old female with no significant past medical history presents the ED complaining of left mid back pain status post twist injury when she was "roughhousing" with her this evening. Patient states that she feels like there is a muscle spasm in her back. Patient states that the pain does not radiate. Patient states that standing erect makes the pain worse. She is otherwise eating and drinking without any difficulties. She is urinating normally and having normal bowel movements. Denies any IV drug use or surgery/procedures to her back. Denies any previous history of spinal abscess. No other concerns or complaints at this time. Denies any headache, fever, URI, sore throat, chest pain, palpitations, syncope, cough, shortness of breath, wheeze, dyspnea, abdominal pain, nausea/vomiting/diarrhea, urinary retention, dysuria, hematuria, loss of control of bowel or bladder, numbness/ tingling, saddle anesthesia, muscle paralysis/weakness, or rash. - ROS Systems Reviewed and Negative: Yes All other systems reviewed and negative - REPRODUCTIVE Reproductive: DENIES: : Past Medical History - Social History Smoking Status: Current Every Day Smoker Chew tobacco use (# tins/day): No Frequency of alcohol use: None Drug Abuse: None Family History: Reviewed & Not Pertinent, CVA, DM, Hypertension, Thyroid Disfunction Patient has suicidal ideation: No Patient has homicidal ideation: No Endocrine Medical History: Reports: Hx Hypothyroidism Renal/ Medical History: Denies: Hx Peritoneal Dialysis Psychiatric Medical History: Reports: Hx Depression Past Surgical History: Reports: Hx Abdominal Surgery - hernia, Hx Section - 2, Hx Gynecologic Surgery - LEEP, Hx Umbilical Hernia - Immunizations Hx Diphtheria, Pertussis, Tetanus Vaccination: - unk Hx Pneumococcal Vaccination: 08/01/00 Vertical Provider Document - CONSTITUTIONAL Agree With Documented VS: Yes Notes: PHYSICAL EXAMINATION: GENERAL: Well-appearing, well-nourished and in no acute distress. LUNGS: Breath sounds clear to auscultation bilaterally and equal. No wheezes rales or rhonchi. HEART: Regular rate and rhythm without murmurs, rubs, gallops. ABDOMEN: Soft, nontender, nondistended abdomen. No guarding, no rebound. No masses appreciated. Normal bowel sounds present. No CVA tenderness bilaterally. No pulsatile mass Musculoskeletal: LE's b/l: FROM to passive/active. Strength 5+/5. No deficits noted. No bony tenderness of extremities. Back: FROM to passive/active. Strength 5+/5. No vertebral point tenderness, stepoffs, or deformities. No other bony tenderness, erythema, swelling, or ecchymosis. SLR negative b/l. + mild tenderness to the Left T/L-paraspinal mm with notable spasming, correlates with pain described. No SI jt tenderness. No foot drop Extremities: No cyanosis, clubbing, or edema b/l. Peripheral pulses 2+. Capillary refill less than 2 seconds. NEUROLOGICAL: Normal speech, normal gait. Normal sensory, motor exams. Reflexes 2+ b/l. PSYCH: Normal mood, normal affect. SKIN: Warm, Dry, normal turgor, no rashes or lesions noted. - INFECTION CONTROL TRAVEL OUTSIDE OF THE [place] IN LAST 30 DAYS: No Course - Re-evaluation Re-evalutation: 01/12/18 22:44 Patient is an afebrile, well-hydrated, 42-year-old female who presents to the ED with left thoracic/lumbar back pain, suspect strain with muscle spasming. Vitals are acceptable. PE is otherwise unremarkable for any focal neurological deficits. She has no significant tachycardia, tachypnea, or hypoxia. There is no sign of infection. She is nontoxic-appearing and is tolerating p.o. without difficulties. No other red flag symptoms. No labs or imaging warranted at this time based on H&P. Toradol given IM today. Valium 5 mg given p.o. as muscle relaxer due to the notable muscle spasming. Low suspicion for any meningitis, fracture, expanding/ruptured AAA, cauda equina syndrome, epidural mass lesion/abscess, herniated disc causing severe spinal stenosis, or other systemic infection at this time. Patient is aware that her condition can change from initial presentation and that she needs monitor symptoms closely for any acute changes. I will send her home with a prescription for naproxen and baclofen. Conservative measures otherwise for symptoms. Recheck with your PCM in 3-5 days. Consider consult orthopedic/physical therapy. Return to the ED with any worsening/concerning symptoms otherwise as reviewed discharge. Patient is in agreement. - Vital Signs Vital signs: Temp Pulse Resp BP Pulse Ox 99.4 F 76 20 123/80 98 06/14/18 20:43 01/12/18 20:43 01/12/18 20:43 01/12/18 20:43 01/12/18 20:43 Discharge - Discharge Clinical Impression: Muscle spasm Low back pain Qualifiers: Chronicity: acute Back pain laterality: left Sciatica presence: without sciatica Qualified Code(s): M54.5 - Low back pain Condition: Stable Disposition: HOME, SELF-CARE Instructions: Low Back Pain ([facility]), Muscle Strain ([facility]), Stretching Exercises for the Back ([facility]), Muscle Relaxers ([facility]) Additional Instructions: Rest, Ice, Compression, Elevation Tylenol/ibuprofen as needed Light stretches daily Strength exercises as able Moist heat and massage may help F/u with your PCP in 3-5 days for a recheck Consider consult(s) with Orthopedics/physical therapy for ongoing/worsening symptoms Return to the ED with any worsening symptoms and/or development of fever, headache, chest pain, palpitations, syncope, shortness of breath, trouble breathing, abdominal pain, n/v/d, blood in stool/urine, loss of control of bowel /bladder, urinary retention, muscle weakness/paralysis, saddle anesthesia, numbness/tingling, or other worsening symptoms that are concerning to you. Prescriptions: Baclofen [Baclofen 10 mg Tablet] 5 - 10 mg PO BID PRN #10 tablet PRN Reason: Naproxen 500 mg PO BID PRN #30 tablet PRN Reason: Forms: Smoking Cessation Education Referrals: [facility] [Provider Group] - Follow up as needed
[2018-01-12 23:17] VITALS: BP 142/93
== END 2018-01-12 23:17 | disposition home or self-care (01) ==
LOC: ER 20:33
DX: M62.830 Muscle spasm of back (principal); M54.5 Low back pain; F17.200 Nicotine dependence, unspecified, uncomplicated; E03.9 Hypothyroidism, unspecified
CPT/HCPCS: 99283; 96372; J1885

== ENCOUNTER 2018-02-08 10:30 | Emergency (ER) | payer SELFPAY ==
--- NOTE | 2018-02-08 10:45 | ER Document Report ---
ED General - General Chief Complaint: Vomiting/Diarrhea Stated Complaint: VOMITING FEVER Time Seen by Provider: 02/08/18 10:35 Notes: The patient is a 42-year-old female, no significant past medical history, presents with 3 days of nausea, vomiting and watery diarrhea. Multiple coworkers are having similar symptoms. Last night, she started to have a sore throat and subjective fevers. She also noted a swollen left neck lymph node and a dry cough. Patient took DayQuil an hour prior to arrival. She denies difficulty swallowing, neck stiffness, abdominal pain, urinary symptoms TRAVEL OUTSIDE OF THE [place] IN LAST 30 DAYS: No - Related Data Allergies/Adverse Reactions: Penicillins Allergy (Mild, Verified 09/24/17 12:17) sulfamethoxazole [From Bactrim] Allergy (Verified 09/24/17 12:17) trimethoprim [From Bactrim] Allergy (Verified 09/24/17 12:17) Past Medical History - General Information source: Patient - Social History Smoking Status: Unknown if Ever Smoked Family History: Reviewed & Not Pertinent, CVA, DM, Hypertension, Thyroid Disfunction Endocrine Medical History: Reports: Hx Hypothyroidism Renal/ Medical History: Denies: Hx Peritoneal Dialysis Psychiatric Medical History: Reports: Hx Depression Past Surgical History: Reports: Hx Abdominal Surgery - hernia, Hx Section - 2, Hx Gynecologic Surgery - LEEP, Hx Umbilical Hernia - Immunizations Hx Diphtheria, Pertussis, Tetanus Vaccination: - unk Hx Pneumococcal Vaccination: 08/01/00 Review of Systems - Review of Systems Notes: REVIEW OF SYSTEMS: CONSTITUTIONAL: +fevers, -chills EENT: -eye pain, -difficulty swallowing, +nasal congestion CARDIOVASCULAR: -chest pain, -syncope. RESPIRATORY: +cough, -SOB GASTROINTESTINAL: -abdominal pain, +nausea, +vomiting, +diarrhea GENITOURINARY: -dysuria, -hematuria MUSCULOSKELETAL: -back pain, -neck pain SKIN: -rash or skin lesions. HEMATOLOGIC: -easy bruising or bleeding. LYMPHATIC: -swollen, enlarged glands. NEUROLOGICAL: -altered mental status or loss of consciousness, -headache, - neurologic symptoms PSYCHIATRIC: -anxiety, -depression. ALL OTHER SYSTEMS REVIEWED AND NEGATIVE. Physical Exam - Vital signs Vitals: Temp Pulse Resp BP Pulse Ox 98.2 F 80 16 128/93 H 98 02/08/18 10:35 02/08/18 10:35 02/08/18 10:35 02/08/18 10:35 02/08/18 10:35 - Notes Notes: PHYSICAL EXAMINATION: GENERAL: Well-appearing, well-nourished and in no acute distress. HEAD: Atraumatic, normocephalic. EYES: Pupils equal round and reactive to light, extraocular movements intact, sclera anicteric, conjunctiva are normal. ENT: nares patent, oropharynx clear without exudates. Moist mucous membranes. NECK: Normal range of motion, supple with single tender left anterior cervical lymphadenopathy LUNGS: Breath sounds clear to auscultation bilaterally and equal. No wheezes rales or rhonchi. HEART: Regular rate and rhythm without murmurs ABDOMEN: Soft, nontender, normoactive bowel sounds. No guarding, no rebound. No masses appreciated. EXTREMITIES: Normal range of motion, no pitting or edema. No cyanosis. NEUROLOGICAL: Cranial nerves grossly intact. Normal speech, normal gait. Normal sensory and motor exams. PSYCH: Normal mood, normal affect. SKIN: Warm, Dry, normal turgor, no rashes or lesions noted. Course - Re-evaluation Re-evalutation: Patient's vital signs are normal. She has 2 Centor criteria, but rapid strep is negative. She does not require treatment for strep pharyngitis at this time.. Her abdomen is completely soft and non-tender. Urinalysis does not show evidence of dehydration. It is contaminated and she is not having any symptoms of a urinary tract infection, so will not treat her for a UTI. Instructed her about symptomatic treatment for her viral symptoms and instructions to follow-up with her primary care physician. - Vital Signs Vital signs: Temp Pulse Resp BP Pulse Ox 97.8 F 59 L 16 142/84 H 100 02/08/18 11:21 02/08/18 11:21 02/08/18 10:35 02/08/18 11:21 02/08/18 11:21 - Laboratory Laboratory results interpreted by me: 02/08/18 10:40 Urine Nitrite POSITIVE H Discharge - Discharge Clinical Impression: Nausea vomiting and diarrhea Pharyngitis Qualifiers: Pharyngitis/tonsillitis etiology: unspecified etiology Qualified Code(s): J02.9 - Acute pharyngitis, unspecified URI (upper respiratory infection) Qualifiers: URI type: unspecified URI Qualified Code(s): J06.9 - Acute upper respiratory infection, unspecified Condition: Stable Disposition: HOME, SELF-CARE Additional Instructions: VOMITING: Vomiting (or nausea without vomiting) can be caused by many other different problems. It can mean that something's wrong with the stomach, such as ulcers or inflammation or the intestinal tract, such as appendicitis. But it can also be a symptom of a problem that has nothing to do with the stomach or intestines. Vomiting is common with severe headaches, earaches, tonsillitis, and kidney infections, etc. We see it with pneumonia or heart attacks. Drugs can cause nausea and vomiting. Many abdominal problems cause vomiting; for example, gallstones, kidney stones, pancreatitis, and intestinal obstruction ( blocked bowels). In most cases, curing the vomiting depends on fixing the problem that caused it. For temporary relief, we may use an anti-nausea medicine. For home use, we can prescribe suppositories, chewable pills, pills that dissolve in the mouth, or liquid anti-nausea drugs. If the vomiting seems to be caused by a problem in the stomach, acid-suppressing drugs may be prescribed as well. It's important to avoid dehydration. Sip small amounts of clear liquids ( soft drinks, tea, broth, etc) . Try to take fluids frequently even if you are vomiting to prevent dehydration. Take increasing amounts of fluid and when liquids are being consumed successfully, advance to small amounts of bland food (toast, soups, mashed potatoes, etc.) until you are able to resume a regular diet. Avoid aspirin, tobacco, and alcohol. If the vomiting worsens, if the problem that's making you vomit worsens, or if there's evidence of bleeding in the stomach (such as black, tarry stool, or bloody or black vomit), you should return immediately. Also, return if abdominal pain worsens or becomes localized to one area or you develop high fever. Call your doctor if you aren't improved in 24 hours. DIARRHEA, NON-SPECIFIC: Diarrhea means frequent, watery stools. There are many causes. Any problem that keeps the intestinal tract from absorbing water from the stool can lead to diarrhea. A sudden new diarrhea problem is usually caused by a virus, food sensitivity, toxic bacteria, or drugs. In this case, we expect the problem to go away soon. Testing is done only if you seem seriously ill from the diarrhea. If you have chronic diarrhea, or diarrhea that keeps coming back, we need to find out why. Chronic diarrhea can be due to inflammation of the bowels such as Crohn's disease or ulcerative colitis, food sensitivity such as intolerance to lactose or wheat protein, irritable bowel syndrome, and other problems. If your diarrhea is a significant problem but it's not clear why you have it, we' ll refer you to a specialist for further testing. During an episode of diarrhea, drink small amounts (two to six ounces) of clear liquids (soft drinks, sport drinks, herb teas, broth, etc). Take fluids frequently to prevent dehydration. It's usually not a problem to take mild anti- diarrhea medication such as Kaopectate or Pepto-Bismol. As the diarrhea eases, advance to small amounts of bland food (mashed potato, toast) for 24 hours. Call the physician if blood appears in your vomit or stool, if vomiting lasts longer than 24 hours, if the abdominal pain worsens or becomes localized to one area, if you develop high fever, or if you become lightheaded and weak. VIRAL SYNDROME: The physician has diagnosed a viral infection. Viruses not only cause "colds," but can cause many different symptoms including generalized aching, fever, headache, cough, diarrhea, nausea, vomiting, and fatigue. The treatment, for the most part, is simply relief of symptoms. This means that antibiotics are usually not given. Rest, fluids, pain medications and, occasionally, medication for the specific symptoms that are most bothersome will be prescribed. Use good handwashing to avoid passing the virus to others. Shared toys should be cleaned with disinfectant. Clean the toilets, sinks, and counter surfaces in bathrooms. Launder clothing in hot water. Contact the physician if you develop any new or unusual symptoms such as severe headache, stiff neck, high fever, chest pain, productive cough, or shortness of breath. You should be rechecked if you don't see marked improvement within seven to 10 days. ANTINAUSEA MEDICATION: You have been given a medication to suppress nausea and vomiting. This type of medication can be given as a shot, pill, or suppository. It will usually last for many hours. Pills and shots usually last six to eight hours. For the typical illness, only one or two doses of the medication may be necessary. Mild lightheadedness may occur. This type of medicine can cause drowsiness. Do not drive or operate dangerous machinery while under its influence. Do not mix with alcohol. See your doctor at once if you have muscle spasms or tightness, or uncontrollable motions (particularly of the neck, mouth, or jaw). Persistent vomiting or severe lightheadedness should also be evaluated by the physician. FOLLOW-UP CARE: If you have been referred to a physician for follow-up care, call the physician s office for an appointment as you were instructed or within the next two days. If you experience worsening or a significant change in your symptoms, notify the physician immediately or return to the Emergency Department at any time for re-evaluation. SORE THROAT: Sore throats may be caused by viruses, bacteria, or fungi. Most are due to a virus, and must get better on their own. Bacterial sore throats, particularly those due to "strep," need treatment with antibiotics. If an antibiotic is prescribed, be sure to take the medication for a full 10 days. Failure to take the antibiotic can result in complications such as rheumatic fever. Sometimes, an injection of antibiotics is given instead of pills or liquid. This single "shot" is equal in effectiveness to the oral medication. To relieve symptoms, take acetaminophen for pain. Sip clear liquids frequently, or eat popsicles or ice chips. Anesthetic sprays or lozenges may help. Make sure the air in the room is not too dry. Avoid using decongestants or antihistamines. Call the doctor if there is no improvement in two days, or if you have difficulty breathing, increasing throat pain, high fever, rash, or frequent vomiting. FOLLOW-UP CARE: If you have been referred to a physician for follow-up care, call the physician s office for an appointment as you were instructed or within the next two days. If you experience worsening or a significant change in your symptoms, notify the physician immediately or return to the Emergency Department at any time for re-evaluation. Prescriptions: Benzonatate [Tessalon Perle 100 mg Capsule] 100 mg PO Q8HP PRN #14 cap PRN Reason: Ondansetron [Zofran Odt 4 mg Tablet] 1 - 2 tab PO Q4H PRN #15 tab.rapdis PRN Reason: For Nausea/Vomiting Forms: Elevated Blood Pressure, Return to Work Referrals: [facility] [Outside] - Follow up as needed
[2018-02-08] MEDS ORDERED: ONDANSETRON 4 MG TAB.RAPDIS PO ONE (10:54)
[2018-02-08 11:03] LABS: APPEARANCE,URINE SLIGHTLY-CLOUDY; BILIRUBIN,URINE NEGATIVE (NEGATIVE); COLOR,URINE YELLOW; GLUCOSE, URINE NEGATIVE (NEGATIVE); KETONES,URINE NEGATIVE (NEGATIVE); LEUKOCYTE ESTERASE,URINE NEGATIVE (NEGATIVE); NITRITE,URINE POSITIVE (NEGATIVE); PROTEIN,URINE NEGATIVE (NEGATIVE); URINE SPECIFIC GRAVITY 1.017; UROBILINOGEN,URINE NEGATIVE mg/dL (<2.0)
[2018-02-08 11:22] VITALS: BP 142/84
== END 2018-02-08 11:26 | disposition home or self-care (01) ==
LOC: ER 10:30
DX: J06.9 Acute upper respiratory infection, unspecified (principal); J02.9 Acute pharyngitis, unspecified; R19.7 Diarrhea, unspecified; R11.2 Nausea with vomiting, unspecified
CPT/HCPCS: 99284; 87070; 87880; 81025; 81001; S0119

== ENCOUNTER 2018-05-10 12:15 | Emergency (ER) | payer SELFPAY ==
[2018-05-10] MEDS ORDERED: PREDNISONE 20 MG TABLET PO ONE (13:50)
[2018-05-10] MEDS ORDERED: BENZONATATE 100 MG CAPSULE PO ONE (13:50)
--- NOTE | 2018-05-10 13:53 | ER Document Report ---
HPI - HPI Pain Level: 4 Notes: Patient is a 42-year-old female who presents with chief complaint of resolving cough. Patient reports she has been sick with cough, congestion and runny nose since Tuesday. Patient reports persistent cough however she states most importantly she needs a work note so she can return to work tonight. - CONSTITUTIONAL Constitutional: REPORTS: Fever, Chills - EENT EENT: REPORTS: Sore Throat - NEURO Neurology: REPORTS: Headache - RESPIRATORY Respiratory: REPORTS: Coughing - REPRODUCTIVE Reproductive: DENIES: : Past Medical History - General Information source: Patient - Social History Smoking Status: Current Every Day Smoker Chew tobacco use (# tins/day): No Frequency of alcohol use: None Drug Abuse: None Family History: Reviewed & Not Pertinent, CVA, DM, Hypertension, Thyroid Disfunction Patient has suicidal ideation: No Patient has homicidal ideation: No Endocrine Medical History: Reports: Hx Hypothyroidism Renal/ Medical History: Denies: Hx Peritoneal Dialysis Psychiatric Medical History: Reports: Hx Depression Past Surgical History: Reports: Hx Abdominal Surgery - hernia, Hx Section - 2, Hx Gynecologic Surgery - LEEP, Hx Umbilical Hernia - Immunizations Hx Diphtheria, Pertussis, Tetanus Vaccination: - unk Hx Pneumococcal Vaccination: 08/01/00 Vertical Provider Document - CONSTITUTIONAL Notes: PHYSICAL EXAMINATION: GENERAL: Well-appearing, well-nourished and in no acute distress. HEAD: Atraumatic, normocephalic. EYES: Pupils equal round extraocular movements intact, conjunctiva are normal. ENT: Nares patent NECK: Normal range of motion LUNGS: No respiratory distress Musculoskeletal: Normal range of motion NEUROLOGICAL: Normal speech, normal gait. PSYCH: Normal mood, normal affect. SKIN: Warm, Dry, normal turgor, no rashes or lesions noted. - INFECTION CONTROL TRAVEL OUTSIDE OF THE [place] IN LAST 30 DAYS: No Course - Re-evaluation Re-evalutation: Examinations consistent with viral upper respiratory illness. Patient has had this ongoing since Tuesday, will release patient back to work tonight. - Vital Signs Vital signs: Temp Pulse Resp BP Pulse Ox 98.9 F 79 16 148/94 H 99 05/10/18 12:32 05/10/18 12:32 05/10/18 12:32 05/10/18 12:32 05/10/18 12:32 Discharge - Discharge Clinical Impression: Cough Upper respiratory infection Qualifiers: URI type: unspecified viral URI Qualified Code(s): J06.9 - Acute upper respiratory infection, unspecified Condition: Stable Disposition: HOME, SELF-CARE Additional Instructions: Upper Respiratory Illness You have a viral infection of the respiratory passages -- a "cold." This common infection causes nasal congestion, drainage, and often sore throat and cough. It is caused by a virus and is highly contagious. The disease usually lasts a week or more, though the worst symptoms are usually over in 3 or 4 days. There is no "cure" for the viral infection -- it must run its course. If there is a complication, such as bacterial infection in the nose, sinuses, middle ear, or bronchial tubes, antibiotics may be required, but antibiotics won 't affect the virus. If you smoke, you should STOP!! Drink plenty of fluids. A humidifier may help. An expectorant medication or decongestant may make you more comfortable. Use acetaminophen or ibuprofen for fever or aches. See the doctor if fever persists over two or three days, if there is any significant worsening of your symptoms, or if you simply fail to improve as expected. Prescriptions: Benzonatate [Tessalon Perles 100 mg Capsule] 100 mg PO Q8HP PRN #40 capsule PRN Reason: Prednisone [Deltasone 20 mg Tablet] 3 tab PO DAILY 4 Days #12 tablet Forms: Special Work Note
[2018-05-10 14:06] VITALS: BP 143/100
== END 2018-05-10 14:05 | disposition home or self-care (01) ==
LOC: ER 12:15
DX: J06.9 Acute upper respiratory infection, unspecified (principal); F17.200 Nicotine dependence, unspecified, uncomplicated; E03.9 Hypothyroidism, unspecified
CPT/HCPCS: 99283; J7512

== ENCOUNTER 2018-10-14 14:02 | Emergency (ER) | payer SELFPAY ==
[2018-10-14 14:06] VITALS: BP 126/76
[2018-10-14] MEDS ORDERED: CLINDAMYCIN HCL 150 MG CAPSULE PO ONE (14:51)
--- NOTE | 2018-10-14 14:56 | ER Document Report ---
ED ENT - General Chief Complaint: Cold Symptoms Stated Complaint: SORE THROAT Time Seen by Provider: 10/14/18 14:44 Mode of Arrival: Ambulatory Information source: Patient Notes: 42-year-old female presented to ED for complaint of sore throat cough congestion and swollen neck. She states she also has a dental pain on the right lower jaw. Patient is alert and oriented respirations regular and unlabored speaking in full sentences walks with a steady gait. TRAVEL OUTSIDE OF THE [place] IN LAST 30 DAYS: No - HPI Patient complains to provider of: Dental problem Onset: Other - Day Onset/Duration: Gradual Quality of pain: Achy, Dull Severity: Moderate Pain Level: 4 Context: Recent Illness, Other - Toe pain Location of pain: Nose, Sinus, Throat, Tooth Associated symptoms: Dental pain, Dental caries, Runny nose, Sinus pain, Sinus drainage, Sore throat, Swollen glands Similar symptoms previously: Yes Recently seen / treated by doctor: No - Related Data Allergies/Adverse Reactions: Penicillins Allergy (Mild, Verified 10/14/18 14:02) sulfamethoxazole [From Bactrim] Allergy (Verified 10/14/18 14:02) trimethoprim [From Bactrim] Allergy (Verified 10/14/18 14:02) Past Medical History - General Information source: Patient - Social History Smoking Status: Current Every Day Smoker Cigarette use (# per day): Yes - 1/2 pack/day Chew tobacco use (# tins/day): No Smoking Education Provided: Yes - 4 minutes Frequency of alcohol use: None Drug Abuse: None Occupation: Customer service Lives with: Family Family History: Reviewed & Not Pertinent, CVA, DM, Hypertension, Thyroid Disfunction Patient has suicidal ideation: No Patient has homicidal ideation: No - Past Medical History Cardiac Medical History: Reports: None Pulmonary Medical History: Reports: None EENT Medical History: Reports: None Neurological Medical History: Reports: None Endocrine Medical History: Reports: Hx Hypothyroidism Renal/ Medical History: Reports: None Malignancy Medical History: Reports: None GI Medical History: Reports: None Musculoskeletal Medical History: Reports None Skin Medical History: Reports None Psychiatric Medical History: Reports: Hx Depression Traumatic Medical History: Reports: None Infectious Medical History: Reports: None Past Surgical History: Reports: Hx Abdominal Surgery - hernia, Hx Section - 2, Hx Gynecologic Surgery - LEEP, Hx Umbilical Hernia - Immunizations Hx Diphtheria, Pertussis, Tetanus Vaccination: - unk Hx Pneumococcal Vaccination: 08/01/00 Review of Systems - Review of Systems Constitutional: No symptoms reported EENT: Nose congestion, Nose discharge, Sinus pressure, Sinus discharge, Throat pain Cardiovascular: No symptoms reported Respiratory: Cough Gastrointestinal: No symptoms reported Genitourinary: No symptoms reported Female Genitourinary: No symptoms reported Musculoskeletal: No symptoms reported Skin: No symptoms reported Hematologic/Lymphatic: No symptoms reported Neurological/Psychological: No symptoms reported -: Yes All other systems reviewed and negative Physical Exam - Vital signs Vitals: Temp Pulse Resp BP Pulse Ox 98.5 F 85 18 126/76 H 99 10/14/18 14:04 10/14/18 14:04 10/14/18 14:04 10/14/18 14:04 10/14/18 14:04 Interpretation: Normal - General General appearance: Appears well, Alert - HEENT Head: Normocephalic, Atraumatic Eyes: Normal Pupils: PERRL Ears: Normal External canal: Normal Tympanic membrane: Normal Sinus: Normal Nasal: Purulent discharge, Swelling Mouth/Lips: Caries Mucous membranes: Normal Teeth diagram: 1 - dental cavity Pharynx: Post nasal drainage Neck: Normal - Respiratory Respiratory status: No respiratory distress Chest status: Nontender Breath sounds: Nonproductive cough Chest palpation: Normal - Cardiovascular Rhythm: Regular Heart sounds: Normal auscultation Murmur: No - Abdominal Inspection: Normal Distension: No distension Bowel sounds: Normal Tenderness: Nontender Organomegaly: No organomegaly - Back Back: Normal, Nontender - Extremities General upper extremity: Normal inspection, Nontender, Normal color, Normal ROM, Normal temperature General lower extremity: Normal inspection, Nontender, Normal color, Normal ROM, Normal temperature, Normal weight bearing. No: Jose's sign - Neurological Neuro grossly intact: Yes Cognition: Normal Orientation: AAOx4 [place] Coma Scale Eye Opening: Spontaneous [place] Coma Scale Verbal: Oriented [place] Coma Scale Motor: Obeys Commands [place] Coma Scale Total: 15 Speech: Normal Motor strength normal: LUE, RUE, LLE, RLE Sensory: Normal - Psychological Associated symptoms: Normal affect, Normal mood - Skin Skin Temperature: Warm Skin Moisture: Dry Skin Color: Normal Course - Vital Signs Vital signs: Temp Pulse Resp BP Pulse Ox 98.5 F 85 18 126/76 H 99 10/14/18 14:04 10/14/18 14:04 10/14/18 14:04 10/14/18 14:04 10/14/18 14:04 Discharge - Discharge Clinical Impression: Pain due to dental caries, Viral sore throat URI (upper respiratory infection) Qualifiers: URI type: unspecified viral URI Qualified Code(s): J06.9 - Acute upper respiratory infection, unspecified Condition: Stable Disposition: HOME, SELF-CARE Instructions: Family Physicians / Practices Additional Instructions: SORE THROAT: Sore throats may be caused by viruses, bacteria, or fungi. Most are due to a virus, and must get better on their own. Bacterial sore throats, particularly those due to "strep," need treatment with antibiotics. If an antibiotic is prescribed, be sure to take the medication for a full 10 days. Failure to take the antibiotic can result in complications such as rheumatic fever. Sometimes, an injection of antibiotics is given instead of pills or liquid. This single "shot" is equal in effectiveness to the oral medication. To relieve symptoms, take acetaminophen for pain. Sip clear liquids frequently, or eat popsicles or ice chips. Anesthetic sprays or lozenges may help. Make sure the air in the room is not too dry. Avoid using decongestants or antihistamines. Call the doctor if there is no improvement in two days, or if you have difficulty breathing, increasing throat pain, high fever, rash, or frequent vomiting. UPPER RESPIRATORY ILLNESS: You have a viral infection of the respiratory passages -- a "cold." This common infection causes nasal congestion, drainage, and often sore throat and cough. It is highly contagious. The disease usually lasts about 10 to 14 days. There is no "cure" for the viral infection -- it must run its course. If there is a complication, such as bacterial infection in the nose, sinuses, middle ear, or bronchial tubes, antibiotics may be required. The antibiotics won't affect the virus. Drink plenty of fluids. A humidifier may help. An expectorant medication or decongestant may make you more comfortable. Use acetaminophen or ibuprofen for fever or aches. See the doctor if fever persists over two days, if there is any significant worsening of your symptoms, or if you simply fail to improve as expected. COUGH-SUPPRESSANT & EXPECTORANT MEDICATION: You are to use a cough medication as needed for relief of symptoms. This medicine is a combination of an expectorant (to make the mucous thinner and more easily "coughed up") and a cough suppressant (to reduce the frequency of coughing). The cough-suppressant medicine is related to narcotics. You may experience mild nausea and sleepiness. Some patients who are very sensitive to narcotics may have stomach pain from this medicine. Taking the medicine with food reduces these side effects. Do not drive or work with machinery until you know how this medicine affects you. The expectorant should have no side effects. Iodine-containing expectorants (such as organidin) should not be taken by persons with active thyroid disease unless approved by your doctor. Call the doctor if you develop shortness of breath, hives, rash, itching, lightheadedness, or severe nausea and vomiting. SMOKING: If you smoke, you should stop smoking. The tar and chemicals in cigarette smoke are harmful. Smoking has been shown to cause: emphysema chronic bronchitis lung cancer mouth and throat cancer stomach and pancreas cancer premature aging defects In addition, smoking increases ear and lung infections in children of smokers. TOOTHACHE: Your pain is due to dental decay. The tooth must be repaired in order for you to feel better. You will, therefore, be referred to a dentist. We do not have dentists on the staff at [facility]. Severe swelling or drainage around a tooth usually means a dental abscess. This also requires evaluation and treatment by the dentist, but antibiotics may be prescribed while awaiting dental treatment. You should be rechecked immediately if you develop major swelling of the fa ce, increasing pain, a lump in the jaw or gums, headache, difficulty swallowing, or fever. CLINDAMYCIN: You have been given a prescription for the antibiotic clindamycin. It is often prescribed for infections in the mouth, such as dental infections or abscesses, and for skin infections due to MRSA. It's important that you take all the medication, unless instructed otherwise by your physician. Failure to complete the entire course can result in relapse of your condition. Common side effects of antibiotics include nausea, intestinal cramping, or diarrhea. Women may develop vaginal yeast infections, and babies can get yeast (thrush) in the mouth following the use of antibiotics. Contact your physician if you develop significant side effects from this medication. Allergy to this antibiotic can result in hives, wheezing, faintness, or itching. If symptoms of allergy occur, stop the medication and call the doctor. FOLLOW-UP CARE: You have been referred for follow-up care to the dentists listed below. Call the dentists office for an appointment as you were instructed or within the next two days. If you experience worsening or a significant change in your symptoms, notify the physician immediately or return to the Emergency Department at any time for re-evaluation. [facility] [address] [place], [place] [facility] [address] [place] [address] [facility] [address] [facility] [address] [facility] [address] [facility] [address] [email or web address] [address] [address] Tuesday- 8:00am to 5:00 pm Will see patients from other [facility]. Charges based on income and family size and accepts Medicare, Medicaid, and Insurances Will pull molars [facility] [address] Hours of Operation 8:00 am - 4:30 pm weekdays The following dental offices accept Medicaid: [facility] Dr. [address] [place] Dr. [place] Dr. Morgan Guicho Ames Lutsavage, and [facility] Dr. Abdi ([place]) Dr. Rose ([place]) [facility] Drs. Steven and Jerel ([place]) Dr. Mcdaniel ([place]) [facility] Dr. Castellanos ([place]) Drs. Roach and ([place]) Medicaid Care Line Prescriptions: Clindamycin HCl 300 mg PO Q6 #28 capsule Forms: Elevated Blood Pressure, Smoking Cessation Education, Return to Work
== END 2018-10-14 15:12 | disposition home or self-care (01) ==
LOC: ER 14:02
DX: J02.8 Acute pharyngitis due to other specified organisms (principal); B97.89 Other viral agents as the cause of diseases classified elsewhere; K02.9 Dental caries, unspecified; K08.89 Other specified disorders of teeth and supporting structures; R05 Cough; R09.81 Nasal congestion; J34.89 Other specified disorders of nose and nasal sinuses; R09.82 Postnasal drip; F17.210 Nicotine dependence, cigarettes, uncomplicated; Z71.6 Tobacco abuse counseling; Z88.0 Allergy status to penicillin; Z88.1 Allergy status to other antibiotic agents
CPT/HCPCS: 99283; 99406

== ENCOUNTER 2018-12-03 12:11 | Emergency (ER) | payer SELFPAY ==
--- NOTE | 2018-12-03 12:50 | ER Document Report ---
ED Medical Screen (RME) - General Chief Complaint: Chest Pain Stated Complaint: CHEST PAIN Time Seen by Provider: 12/03/18 12:46 Mode of Arrival: Ambulatory Information source: Patient Notes: 42-year-old female presents to ED for complaint of epigastric/chest pain shortness of breath with limiting down her arm since Tuesday. She states she had a cardiac cath in 2004 that she thinks was negative. She has a history of hypothyroid and anemia umbilical hernia and has had a cardiac cath umbilical hernia repair and a LEEP procedure. She does not drink or do drugs but she does smoke 1/2 pack a day. She works in customer services. She is alert oriented respirations regular and unlabored speaking in full sentences. I have greeted and performed a rapid initial assessment of this patient. A comprehensive ED assessment and evaluation of the patient, analysis of test results and completion of medical decision making process will be conducted by an additional ED providers. TRAVEL OUTSIDE OF THE [place] IN LAST 30 DAYS: No - Related Data Allergies/Adverse Reactions: Penicillins Allergy (Mild, Verified 10/14/18 14:02) sulfamethoxazole [From Bactrim] Allergy (Verified 10/14/18 14:02) trimethoprim [From Bactrim] Allergy (Verified 10/14/18 14:02) Past Medical History - Social History Frequency of alcohol use: None Drug Abuse: None Family history: DM, Thyroid Disfunction, Other - scoliosis Endocrine Medical History: Reports: Hx Hypothyroidism Renal/ Medical History: Denies: Hx Peritoneal Dialysis Psychiatric Medical History: Reports: Hx Depression Past Surgical History: Reports: Hx Abdominal Surgery - hernia, Hx Cardiac Catheterization, Hx Section - 2, Hx Gynecologic Surgery - LEEP, Hx Umbilical Hernia - Immunizations Hx Diphtheria, Pertussis, Tetanus Vaccination: - unk Physical Exam - Vital signs Vitals: Temp Pulse Resp BP Pulse Ox 98.1 F 96 22 H 129/90 H 100 12/03/18 12:25 12/03/18 12:12/03/18 12:12/03/18 12:12/03/18 12:25 Course - Vital Signs Vital signs: Temp Pulse Resp BP Pulse Ox 98.1 F 96 22 H 129/90 H 100 12/03/18 12:12/03/18 12:12/03/18 12:25 12/03/18 12:25 12/03/18 12:25
[2018-12-03 13:14] LABS: ABSOLUTE BASOPHILS # (AUTO) 0.1 10^3/uL (0.0-0.2); ABSOLUTE EOSINOPHILS # (AUTO) 0.1 10^3/uL (0.0-0.6); ABSOLUTE LYMPHOCYTES (AUTO) 2.5 10^3/uL (0.5-4.7); ABSOLUTE MONOCYTES (AUTO) 0.4 10^3/uL (0.1-1.4); BASOPHILS % (AUTO) 1.1 % (0-2); EOSINOPHILS % (AUTO) 1.3 % (0-6); HEMATOCRIT 34.7 % (36.0-47.0); LYMPHOCYTES % (AUTO) 35.6 % (13-45); MEAN CORPUSCULAR HEMOGLOBIN 31.9 pg (27.0-33.4); MEAN CORPUSCULAR HGB CONC 34.7 g/dL (32.0-36.0); MEAN CORPUSCULAR VOLUME 92 fl (80-97); MONOCYTES % (AUTO) 5.5 % (3-13); PLATELET COUNT 199 10^3/uL (150-450); RED BLOOD COUNT 3.77 10^6/uL (3.72-5.28); RED CELL DISTRIBUTION WIDTH 14.4 % (11.5-14.0); SEGMENTED NEUTROPHILS % (AUTO) 56.5 % (42-78); TOTAL CELLS COUNTED % (AUTO) 100 %
[2018-12-03 13:22] LABS: APPEARANCE,URINE SLIGHTLY-CLOUDY; BILIRUBIN,URINE NEGATIVE (NEGATIVE); COLOR,URINE YELLOW; GLUCOSE, URINE NEGATIVE (NEGATIVE); KETONES,URINE NEGATIVE (NEGATIVE); LEUKOCYTE ESTERASE,URINE TRACE (NEGATIVE); NITRITE,URINE NEGATIVE (NEGATIVE); PROTEIN,URINE NEGATIVE (NEGATIVE); UROBILINOGEN,URINE NEGATIVE mg/dL (<2.0)
--- NOTE | 2018-12-03 13:24 | RADIOLOGY REPORT (SQ) ---
EXAM DESCRIPTION: CHEST 2 VIEWS COMPLETED DATE/TIME: 12/03/2018 1:04 pm REASON FOR STUDY: chest pain COMPARISON: 09/24/2017 TECHNIQUE: Frontal and lateral radiographic views of the chest acquired. NUMBER OF VIEWS: Two view. LIMITATIONS: None. FINDINGS: LUNGS AND PLEURA: No pneumothorax. No consolidation or pleural effusion. MEDIASTINUM AND HILAR STRUCTURES: Stable. HEART AND VASCULAR STRUCTURES: Stable. BONES: No acute findings. Similar thoracic dextroscoliosis. HARDWARE: None in the chest. OTHER: No other significant finding. IMPRESSION: NO ACUTE FINDINGS. TECHNICAL DOCUMENTATION: JOB ID: [id number] [place]-72 2010 [employer]- All Rights Reserved Reading location - IP/workstation name: [email or web address]
[2018-12-03 13:55] LABS: ALANINE AMINOTRANSFERASE 56 U/L (9-52); ALBUMIN 3.8 g/dL (3.5-5.0); ALKALINE PHOSPHATASE 50 U/L (38-126); ANION GAP 8 (5-19); ASPARTATE AMINO TRANSFERASE 58 U/L (14-36); BILIRUBIN,DIRECT 0.3 mg/dL (0.0-0.4); BILIRUBIN,TOTAL 0.7 mg/dL (0.2-1.3); BLOOD UREA NITROGEN 12 mg/dL (7-20); CALCIUM 9.3 mg/dL (8.4-10.2); CARBON DIOXIDE 25 mmol/L (22-30); CHLORIDE 107 mmol/L (98-107); CREATINE KINASE 709 U/L (30-135); GLUCOSE 83 mg/dL (75-110); LIPASE 89.2 U/L (23-300); POTASSIUM 3.8 mmol/L (3.6-5.0); TOTAL PROTEIN 6.1 g/dL (6.3-8.2)
[2018-12-03 14:13] LABS: CREATINE KINASE MB 7.18 ng/mL (<4.55); TROPONIN I < 0.012 ng/mL
[2018-12-03] MEDS ORDERED: METOCLOPRAMIDE HCL INJ/PF 10 MG/2 ML SDV IV ONE (15:47)
[2018-12-03] MEDS ORDERED: MORPHINE SULFATE 10 MG/ML INJ IV ONE (15:47)
[2018-12-03] MEDS ORDERED: DIPHENHYDRAMINE HCL 50 MG/ML VIAL IV ONE (15:47)
--- NOTE | 2018-12-03 15:52 | ER Document Report ---
ED General - General Chief Complaint: Chest Pain Stated Complaint: CHEST PAIN Time Seen by Provider: 12/03/18 12:46 Mode of Arrival: Ambulatory Information source: Patient, [facility] Records Notes: 42-year-old female with hypothyroidism, 20+ pack year smoking history presents with complaint of chest pain that started 5 days prior to arrival immediately following plasma donation. Patient states pain is been intermittent, sharp and located in the substernal region. She denies any radiation of pain, diaphoresis, nausea, shortness of breath, dizziness, recent illness, cough, trauma. TRAVEL OUTSIDE OF THE [place] IN LAST 30 DAYS: No - HPI Onset: Last week Onset/Duration: Gradual, Intermittent Quality of pain: Sharp Severity: Moderate Associated symptoms: Chest pain, Headache. denies: Nonproductive cough, Productive cough, Fever, Nausea, Vomiting, Shortness of breath, Sweating, Weakness Exacerbated by: Denies Relieved by: Remaining still Similar symptoms previously: Yes Recently seen / treated by doctor: No - Related Data Allergies/Adverse Reactions: Penicillins Allergy (Mild, Verified 10/14/18 14:02) sulfamethoxazole [From Bactrim] Allergy (Verified 10/14/18 14:02) trimethoprim [From Bactrim] Allergy (Verified 10/14/18 14:02) Past Medical History - General Information source: Patient - Social History Smoking Status: Current Every Day Smoker Cigarette use (# per day): Yes - 20 Smoking Education Provided: Yes - Smoking cessation counseling was provided for 4 minutes at the bedside Frequency of alcohol use: None Drug Abuse: None Lives with: Spouse/Significant other Family History: Reviewed & Not Pertinent, CVA, DM, Hypertension, Thyroid Disfunction Patient has suicidal ideation: No Patient has homicidal ideation: No Endocrine Medical History: Reports: Hx Hypothyroidism Renal/ Medical History: Denies: Hx Peritoneal Dialysis Psychiatric Medical History: Reports: Hx Depression Past Surgical History: Reports: Hx Abdominal Surgery - hernia, Hx Cardiac Cath eterization, Hx Section - 2, Hx Gynecologic Surgery - LEEP, Hx Umbilical Hernia - Immunizations Hx Diphtheria, Pertussis, Tetanus Vaccination: - unk Hx Pneumococcal Vaccination: 08/01/00 Review of Systems - Review of Systems Notes: REVIEW OF SYSTEMS: CONSTITUTIONAL : Denies fever, chills, or sweats. Denies recent illness. Denies weight loss, recent hospitalizations. EENT: Denies visual changes, eye pain. Denies sore throat, oral lesions, difficulty swallowing. CARDIOVASCULAR: + chest pain. Denies palpitations. Denies lower extremity edema. RESPIRATORY: Denies cough. Denies shortness of breath, wheezing. GASTROINTESTINAL: Denies abdominal pain or distention. Denies nausea, vomiting, or diarrhea. Denies blood in vomitus, stools, or per rectum. Denies black, tarry stools. Denies constipation. GENITOURINARY: Denies difficulty urinating, painful urination, frequency, blood in urine, or vaginal discharge. MUSCULOSKELETAL: Denies back or neck pain or stiffness. Denies joint pain or swelling. SKIN: Denies rash, lesions or sores. HEMATOLOGIC : Denies easy bruising or bleeding. LYMPHATIC: Denies swollen glands. NEUROLOGICAL: Denies confusion or altered mental status. Denies loss of consciousness. Denies dizziness or lightheadedness. + headache. Denies weakness or paralysis. Denies problems difficulty with ambulation, slurred speech. Denies sensory loss, numbness, or tingling. Denies seizures. PSYCHIATRIC: Denies anxiety or stress. Denies depression, suicidal ideation, or homicidal ideation. Denies visual or auditory hallucinations. Physical Exam - Vital signs Vitals: Temp Pulse Resp BP Pulse Ox 98.1 F 96 22 H 129/90 H 100 12/03/18 12:25 12/03/18 12:25 12/03/18 12:25 12/03/18 12:25 12/03/18 12:25 - Notes Notes: PHYSICAL EXAMINATION: GENERAL: Well-appearing, well-nourished and in no acute distress. HEAD: Atraumatic, normocephalic. EYES: Pupils equal round and reactive to light, extraocular movements intact, conjunctiva are normal. ENT: Nares patent, oropharynx clear without exudates. Moist mucous membranes. NECK: Normal range of motion, supple without lymphadenopathy LUNGS: Breath sounds clear to auscultation bilaterally and equal. No wheezes rales or rhonchi. HEART: Regular rate and rhythm without murmurs ABDOMEN: Soft, nontender, nondistended abdomen. No guarding, no rebound. No masses appreciated. Female : deferred Musculoskeletal: Normal range of motion, no pitting or edema. No cyanosis. NEUROLOGICAL: Cranial nerves grossly intact. Normal speech, normal gait. Normal sensory, motor exams PSYCH: Normal mood, normal affect. SKIN: Warm, Dry, normal turgor, no rashes or lesions noted. Course - Re-evaluation Re-evalutation: 12/03/18 18:08 Patient requesting discharge home prior to repeat troponin. 12/04/18 16:02 HEART Score: History-0 ECG-0 Age-0 Risk Factors-1 Troponin-0 Total:1 If HEART score is = 3 AND both troponin measurements are normal, the 30 day risk of a major adverse cardiac event (all-cause mortality, myocardial infarction or need for coronary revascularization) is < 1% (Sensitivity 100%, NPV 100%). Chest pain in a patient without evidence of cardiac or other serious etiology on workup today. I discussed with patient that, based on their age, risk factors and emergency department testing today, the likelihood that their symptoms are related to a heart attack is very low (estimated risk of heart attack or over the next 30 days of less than 1%). The patient demonstrates decision making capacity and has verbalized an understanding of these risks to me. Based on this, the patient has chosen to follow-up as an outpatient. Usual chest pain return precautions reviewed. The patient states understanding and agreement with this plan. And is PERC negative Patient was evaluated and treated as appropriate for the patient's presenting symptoms and complaint, with consideration of any critical or life threatening conditions that may be associated with their obtained history and exam as noted above. All results were discussed with patient and... Patient provided the opportunity to ask questions, and express concerns. Patient was educated on treatments based on their presumed diagnosis as noted above. At this time we will discharge the patient with return precautions and follow-up recommendations. Verbal discharge instructions given a the bedside. Medication warnings reviewed. Patient is in agreement with this plan and has verbalized understanding of return precautions. After careful consideration I feel that that patient can be safely discharged from the emergency department, they were advised to followup with a primary care physician in 2-3 days. Dictation on this chart was performed using voice recognition software and may result in unintended grammatical, spelling, syntax or errors. - Vital Signs Vital signs: Temp Pulse Resp BP Pulse Ox 97.6 F 78 16 128/86 H 97 12/03/18 17:42 12/03/18 17:42 12/03/18 17:42 12/03/18 17:42 12/03/18 15:47 - Laboratory Result Diagrams: 12/03/18 12:54 12/03/18 12:54 Laboratory results interpreted by me: 12/03/18 12/03/18 12/03/18 12:54 12:54 12:54 Hct 34.7 L RDW 14.4 H Est GFR (Non-Af Amer) 50 L AST 58 H ALT 56 H Creatine Kinase 709 H CK-MB (CK-2) 7.18 H Total Protein 6.1 L Ur Leukocyte Esterase 12/03/18 12:54 Hct RDW Est GFR (Non-Af Amer) AST ALT Creatine Kinase CK-MB (CK-2) Total Protein Ur Leukocyte Esterase TRACE H - Diagnostic Test Radiology reviewed: Image reviewed, Reports reviewed - EKG Interpretation by Me EKG shows normal: Sinus rhythm Rate: Normal Rhythm: NSR When compared to previous EKG there are: No significant change Discharge - Discharge Clinical Impression: Elevated CK Chest pain Qualifiers: Chest pain type: unspecified Qualified Code(s): R07.9 - Chest pain, unspecified Headache Qualifiers: Headache type: unspecified Headache chronicity pattern: unspecified pattern Intractability: not intractable Qualified Code(s): R51 - Headache Condition: Good Disposition: HOME, SELF-CARE Instructions: Chest Pain of Unclear Cause ([facility]) Additional Instructions: You were seen today for chest pain. The exact cause of your pain is unclear. However, based on your cardiac enzyme testing, chest x-ray, and EKG it does not appear that it is from an immediately life-threatening cause at this time. Although your testing here is normal is critical that you follow-up with your primary care physician for continued evaluation of this chest pain and possible stress testing. I recommended you see your physician within the next 24-48 hours to be evaluated for consideration of a stress test. Please return to emergency department immediately if you have worsening of your chest pain, shortness of breath, vomiting, become unable to exert yourself due to pain or difficulty breathing, you pass out, or have any pain that radiates into your arms, jaw, or back. Please also return if you have any additional symptoms that are concerning to you. Forms: Elevated Blood Pressure
[2018-12-03] MEDS ORDERED: NORMAL SALINE 1000 ML 1,000 ML IV ONE (16:48)
[2018-12-03 17:44] VITALS: BP 128/86
[2018-12-03 18:02] LABS: URINE AMPHETAMINES SCREEN NEGATIVE; URINE BARBITURATES SCREEN NEGATIVE; URINE BENZODIAZEPINES SCREEN NEGATIVE; URINE COCAINE SCREEN NEGATIVE; URINE MARIJUANA (THC) SCREEN UNCONFIRMED POSITIVE; URINE METHADONE SCREEN NEGATIVE; URINE PHENCYCLIDINE SCREEN NEGATIVE
--- NOTE | 2018-12-03 22:38 | EKG REPORT ---
SEVERITY:- BORDERLINE ECG - SINUS RHYTHM BORDERLINE LEFT AXIS DEVIATION BORDERLINE T ABNORMALITIES, ANTERIOR LEADS BORDERLINE PROLONGED QT INTERVAL : Confirmed by: Jagdish Baumann 03-Dec-2018 22:37:29
== END 2018-12-03 18:12 | disposition home or self-care (01) ==
LOC: ER 12:11
DX: R07.9 Chest pain, unspecified (principal); R51 Headache; R74.8 Abnormal levels of other serum enzymes; F17.210 Nicotine dependence, cigarettes, uncomplicated
CPT/HCPCS: 93005; 99406; 99285; 96361; 96374; 96375; 36415; 82553; 82550; 83690; 84703; 85025; 80053; 81001; 84484; 80307; 71046; 93010; J1200; J2765; J2270; J7030

== ENCOUNTER 2019-07-12 12:27 | Emergency (ER) | payer SELFPAY ==
[2019-07-12] MEDS ORDERED: METOCLOPRAMIDE HCL INJ/PF 10 MG/2 ML SDV IV ONE (12:51)
--- NOTE | 2019-07-12 12:51 | ER Document Report ---
ED Medical Screen (RME) - General Chief Complaint: Abdominal Pain Stated Complaint: STOMACH PAIN Time Seen by Provider: 07/12/19 12:47 TRAVEL OUTSIDE OF THE [place] IN LAST 30 DAYS: No - HPI Notes: 07/12/19 12:50 Patient is a 43-year-old female with history of hypothyroidism, unknown last time her TSH was checked, who presents complaining of nausea, vomiting, and constipation issues for the past month. Patient states that she normally has to take a laxative to help her have a bowel movement. Patient states that she did have some loose stool, this morning however. Patient does have sharp mid abdominal pain that does not radiate. This is also been constant throughout this time. No fever, chest pain, shortness of breath, dysuria, back pain. I have treated and performed a rapid initial assessment of this patient. A comprehensive ED assessment and evaluation of the patient, analysis of test results and completion of medical decision making process will be conducted by additional ED providers. PHYSICAL EXAMINATION: GENERAL: Well-appearing, well-nourished and in no acute distress. A&Ox4. Answers questions appropriately. - Related Data Allergies/Adverse Reactions: Penicillins Allergy (Mild, Verified 07/12/19 12:44) sulfamethoxazole [From Bactrim] Allergy (Verified 07/12/19 12:44) trimethoprim [From Bactrim] Allergy (Verified 07/12/19 12:44) Past Medical History - Social History Chew tobacco use (# tins/day): No Frequency of alcohol use: None Drug Abuse: None Family history: DM, Thyroid Disfunction, Other - scoliosis Endocrine Medical History: Reports: Hx Hypothyroidism Renal/ Medical History: Denies: Hx Peritoneal Dialysis Psychiatric Medical History: Reports: Hx Depression Past Surgical History: Reports: Hx Abdominal Surgery - hernia, Hx Cardiac Catheterization, Hx Section - 2, Hx Gynecologic Surgery - LEEP, Hx Umbilical Hernia - Immunizations Hx Diphtheria, Pertussis, Tetanus Vaccination: - unk Physical Exam - Vital signs Vitals: Temp Pulse Resp BP Pulse Ox 98.0 F 82 14 122/80 100 07/12/19 12:30 07/12/19 12:30 07/12/19 12:30 07/12/19 12:30 07/12/19 12:30 Course - Vital Signs Vital signs: Temp Pulse Resp BP Pulse Ox 98.0 F 82 14 122/80 100 12/12/19 12:44 07/12/19 12:30 07/12/19 12:44 07/12/19 12:30 07/12/19 12:44
[2019-07-12] MEDS ORDERED: NORMAL SALINE 1000 ML 1,000 ML IV ONE (12:52)
[2019-07-12 13:20] LABS: ABSOLUTE BASOPHILS # (AUTO) 0.1 10^3/uL (0.0-0.2); ABSOLUTE EOSINOPHILS # (AUTO) 0.4 10^3/uL (0.0-0.6); ABSOLUTE LYMPHOCYTES (AUTO) 2.5 10^3/uL (0.5-4.7); ABSOLUTE MONOCYTES (AUTO) 0.4 10^3/uL (0.1-1.4); ABSOLUTE NEUT (AUTO) 4.1 10^3/uL (1.7-8.2); BASOPHILS % (AUTO) 1.3 % (0-2); HEMATOCRIT 35.5 % (36.0-47.0); HEMOGLOBIN 11.9 g/dL (12.0-15.5); LYMPHOCYTES % (AUTO) 33.6 % (13-45); MEAN CORPUSCULAR HEMOGLOBIN 30.1 pg (27.0-33.4); MEAN CORPUSCULAR HGB CONC 33.5 g/dL (32.0-36.0); MEAN CORPUSCULAR VOLUME 90 fl (80-97); MONOCYTES % (AUTO) 5.7 % (3-13); PLATELET COUNT 251 10^3/uL (150-450); RED BLOOD COUNT 3.96 10^6/uL (3.72-5.28); RED CELL DISTRIBUTION WIDTH 14.7 % (11.5-14.0); SEGMENTED NEUTROPHILS % (AUTO) 54.4 % (42-78); TOTAL CELLS COUNTED % (AUTO) 100 %; WHITE BLOOD COUNT 7.6 10^3/uL (4.0-10.5)
[2019-07-12 13:25] LABS: APPEARANCE,URINE CLEAR; BILIRUBIN,URINE NEGATIVE (NEGATIVE); COLOR,URINE STRAW; GLUCOSE, URINE NEGATIVE (NEGATIVE); KETONES,URINE NEGATIVE (NEGATIVE); PROTEIN,URINE NEGATIVE (NEGATIVE); URINE SPECIFIC GRAVITY 1.004; UROBILINOGEN,URINE NEGATIVE mg/dL (<2.0)
[2019-07-12 13:36] LABS: ALBUMIN 4.1 g/dL (3.5-5.0); ALKALINE PHOSPHATASE 55 U/L (38-126); ANION GAP 12 (5-19); ASPARTATE AMINO TRANSFERASE 21 U/L (14-36); BILIRUBIN,DIRECT 0.1 mg/dL (0.0-0.4); BILIRUBIN,TOTAL 0.2 mg/dL (0.2-1.3); BLOOD UREA NITROGEN 11 mg/dL (7-20); CALCIUM 9.2 mg/dL (8.4-10.2); CARBON DIOXIDE 24 mmol/L (22-30); CHLORIDE 105 mmol/L (98-107); GLUCOSE 75 mg/dL (75-110); POTASSIUM 4.2 mmol/L (3.6-5.0); TOTAL PROTEIN 6.8 g/dL (6.3-8.2)
--- NOTE | 2019-07-12 13:38 | RADIOLOGY REPORT (SQ) ---
EXAM DESCRIPTION: KUB/ABDOMEN (SINGLE VIEW) COMPLETED DATE/TIME: 07/12/2019 1:30 pm REASON FOR STUDY: abd pain, n/v/constipation issues COMPARISON: None. NUMBER OF VIEWS: One view. TECHNIQUE: Supine radiographic image of the abdomen acquired. LIMITATIONS: None. FINDINGS: BOWEL GAS PATTERN: Normal bowel gas pattern. No dilated loops. CALCIFICATIONS: No suspicious calcifications. SOFT TISSUES: No gross mass or suggestion of organomegaly. HARDWARE: None in the abdomen. BONES: No acute fracture. Scoliosis. No worrisome bone lesions. OTHER: No other significant finding. IMPRESSION: NO RADIOGRAPHIC EVIDENCE FOR ACUTE ABDOMINAL DISEASE. TECHNICAL DOCUMENTATION: JOB ID: [id number] [employer]- All Rights Reserved Reading location - IP/workstation name: [email or web address]
--- NOTE | 2019-07-12 13:51 | ER Document Report ---
ED GI/ - General Chief Complaint: Abdominal Pain Stated Complaint: STOMACH PAIN Time Seen by Provider: 07/12/19 12:47 Primary Care Provider: [facility] [Provider Group] - Follow up as needed [facility] [Provider Group] - Follow up as needed [facility] [Provider Group] - Follow up as needed [facility] [Provider Group] - Follow up as needed [facility] [Provider Group] - Follow up as needed [facility] [Provider Group] - Follow up as needed [facility] [Provider Group] - Follow up as needed [facility] [Provider Group] - Follow up as needed Mode of Arrival: Ambulatory Information source: Patient Notes: 43-year-old female presented to ED for complaint of abdominal cramping and constipation with nausea vomiting. Patient has been afebrile. She denies any fevers chest pain shortness of breath pain with urination or back pain. She is alert oriented respirations regular nonlabored speaking in full sentences. Abdomen is tender hyperactive bowel sounds. TRAVEL OUTSIDE OF THE [place] IN LAST 30 DAYS: No - HPI Patient complains to provider of: Abdominal pain, Diarrhea - She states she has had constipation extended period of time has been taking laxatives last ones we re Tuesday and Tuesday and then she woke up this morning with sharp mid abdominal pain and diarrhea Timing/Duration: Gradual Quality of pain: Sharp Severity at maximum: Moderate Severity in ED: Moderate Pain Level: 2 Location: Other - Mid abdominal Vaginal bleeding (Compared to normal period): None Associated symptoms: Diarrhea - After taking laxative for constipation, Nausea Exacerbated by: Denies Relieved by: Denies Similar symptoms previously: Yes Recently seen / treated by doctor: No - Related Data Allergies/Adverse Reactions: Penicillins Allergy (Mild, Verified 07/12/19 12:44) sulfamethoxazole [From Bactrim] Allergy (Verified 07/12/19 12:44) trimethoprim [From Bactrim] Allergy (Verified 07/12/19 12:44) Past Medical History - General Information source: Patient - Social History Smoking Status: Current Every Day Smoker Cigarette use (# per day): Yes - Half pack a day Chew tobacco use (# tins/day): No Frequency of alcohol use: None Drug Abuse: None Occupation: Customer service Lives with: Family Family History: Reviewed & Not Pertinent, CVA, DM, Hypertension, Thyroid Disfunction Patient has suicidal ideation: No Patient has homicidal ideation: No - Past Medical History Cardiac Medical History: Reports: None Pulmonary Medical History: Reports: None EENT Medical History: Reports: None Neurological Medical History: Reports: None Endocrine Medical History: Reports: Hx Hypothyroidism Renal/ Medical History: Reports: None Malignancy Medical History: Reports: None GI Medical History: Reports: Other - Chronic constipation Musculoskeletal Medical History: Reports None Skin Medical History: Reports None Psychiatric Medical History: Reports: Hx Depression Traumatic Medical History: Reports: None Infectious Medical History: Reports: None Past Surgical History: Reports: Hx Cardiac Catheterization - No coronary artery disease, Hx Section - 2, Hx Gynecologic Surgery - LEEP, Hx Umbilical Hernia - x2 - Immunizations Immunizations up to date: No Hx Diphtheria, Pertussis, Tetanus Vaccination: - unk Hx Pneumococcal Vaccination: 08/01/00 Review of Systems - Review of Systems Constitutional: No symptoms reported EENT: No symptoms reported Cardiovascular: No symptoms reported Respiratory: No symptoms reported Gastrointestinal: Abdominal pain, Diarrhea, Constipation Genitourinary: No symptoms reported Female Genitourinary: No symptoms reported Musculoskeletal: No symptoms reported Skin: No symptoms reported Hematologic/Lymphatic: No symptoms reported Neurological/Psychological: No symptoms reported -: Yes All other systems reviewed and negative Physical Exam - Vital signs Vitals: Temp Pulse Resp BP Pulse Ox 98.0 F 82 14 122/80 100 07/12/19 12:30 07/12/19 12:30 07/12/19 12:30 07/12/19 12:30 07/12/19 12:30 Interpretation: Normal - General General appearance: Appears well, Alert - HEENT Head: Normocephalic, Atraumatic Eyes: Normal Pupils: PERRL - Respiratory Respiratory status: No respiratory distress Chest status: Nontender Breath sounds: Normal Chest palpation: Normal - Cardiovascular Rhythm: Regular Heart sounds: Normal auscultation Murmur: No - Abdominal Inspection: Normal Distension: No distension Bowel sounds: Hyperactive Tenderness: Nontender. No: Tender Organomegaly: No organomegaly - Back Back: Normal, Nontender - Extremities General upper extremity: Normal inspection, Nontender, Normal color, Normal ROM, Normal temperature General lower extremity: Normal inspection, Nontender, Normal color, Normal ROM, Normal temperature, Normal weight bearing. No: Jose's sign - Neurological Neuro grossly intact: Yes Cognition: Normal Orientation: AAOx4 Desean Coma Scale Eye Opening: Spontaneous Desean Coma Scale Verbal: Oriented Hext Coma Scale Motor: Obeys Commands Hext Coma Scale Total: 15 Speech: Normal Motor strength normal: LUE, RUE, LLE, RLE Sensory: Normal - Psychological Associated symptoms: Normal affect, Normal mood - Skin Skin Temperature: Warm Skin Moisture: Dry Skin Color: Normal Course - Re-evaluation Re-evalutation: 07/12/19 14:23 Discussed x-rays and labs with patient. Also discussed exam and the fact that she is constipated having hard round balls with liquid stools. Discussed plan of care of increasing fluid and fiber in her diet and using MiraLAX. Patient states she just got her insurance and she will need a list of providers. I have given her multiple family practices in the area for her to pick 1 to follow-up with. I have given her names addresses and phone numbers. Patient verbalized understanding and agreement with treatment plan the patient will be discharged home. - Vital Signs Vital signs: Temp Pulse Resp BP Pulse Ox 97.7 F 71 18 134/76 H 100 07/12/19 14:41 07/12/19 14:41 07/12/19 14:41 07/12/19 14:41 07/12/19 14:41 - Laboratory Result Diagrams: 07/12/19 12:55 07/12/19 12:55 Laboratory results interpreted by me: 07/12/19 07/12/19 12:55 12:55 Hgb 11.9 L Hct 35.5 L RDW 14.7 H TSH 30.50 H - Diagnostic Test Radiology reviewed: Image reviewed, Reports reviewed Discharge - Discharge Clinical Impression: Alternating constipation and diarrhea Abdominal pain Qualifiers: Abdominal location: generalized Qualified Code(s): R10.84 - Generalized abdominal pain Condition: Stable Disposition: HOME, SELF-CARE Additional Instructions: ABDOMINAL PAIN: There are many causes of abdominal pain. Pain can mean a serious problem requiring surgery (such as appendicitis). It can also be an innocent problem that goes away on its own (such as a viral infection). Often, time must pass to determine the cause of pain. The physician does not feel that hospitalization is necessary, at present. Things may change within the next 24 hours. Call the doctor or come back for re- examination if any problems occur, such as: (1) Pain that becomes more severe, steady, or becomes concentrated in one specific area. Also, pain that is more severe with movement or coughing. (2) Vomiting that persists or becomes more frequent. (3) Blood in the vomitus, urine, or bowel movements. Blood in the stool may have a tarry or black appearance. (4) Shaking chills or fever greater than 100 degrees F. (5) The abdomen becomes more distended or swollen. (6) Bowel movements cease. (7) Failure to improve as expected. CONSTIPATION: Constipation is a common problem. It is especially likely as you get older. Constipation is a common cause of abdominal pain, but sometimes causes no symptoms at all. Causes of constipation include certain medications, dehydration, diets, inactivity, and low-fiber intake. Rarely, it can be a symptom of underlying disease. The physician has evaluated you for this. Avoid constipation by eating a diet high in fiber, fruits, and vegetables. Drink plenty of liquids. Get regular exercise. If possible, avoid constipating medicines like narcotic pain medication. Some vitamin tablets can cause constipation. Stool softeners may be needed for difficult cases. An excellent stool softener is Konsyl which is available at [employer], and [employer] drug [employer]. Just add a teaspoon to a glass of pineapple or orange juice daily or twice a day if needed. Laxatives are useful for occasional constipation. You should use them only when necessary. Too-frequent use can make your bowels dependent on them. Some over the counter laxatives available without prescription are: Milk of Magnesia, 1-2 tablespoons twice a day Dulcolax, 5 mg pill or 10 mg suppository. Citrate of Magnesia, 4-5 ounces a day for a day or two For acute constipation, Fleet's Enemas and Dulcolax suppositories are helpful. Chronic, lobsterman use of laxatives or enemas is not a good idea. Your bowel may become dependant on them. You do not need to have a bowel movement every day. Many people do fine with a bowel movement every three or four days. You should call your doctor or return for re-evaluation if you pass blood in the stool, or if you develop fever or increasing abdominal pain. Please use the MiraLAX twice a day as we discussed. If you take it in a warm drink in the morning it usually will work better. It is tasteless so he can put it in any kind of liquid such as water coffee tea or any kind of juice. Please use 1 capful twice a day for 2 weeks and then use once a day to help regulate your stools. Use chronic laxatives but this is not a laxative. I am giving you a bottle of magnesium citrate before going home. This will help you to finish emptying out the rest of the stool that I have showed you. You state you have had some hard round balls today. This will help to clean you out from the top and help you feel a lot better. You might have liquid stools today with this magnesium citrate. Please increase your fluids and fiber in your diet. Also exercise will help with your constipation. FOLLOW-UP CARE: If you have been referred to a physician for follow-up care, call the physicians office for an appointment as you were instructed or within the next two days. If you experience worsening or a significant change in your symptoms, notify the physician immediately or return to the Emergency Department at any time for re-evaluation. Forms: Smoking Cessation Education, Return to Work Referrals: [facility] [Provider Group] - Follow up as needed [facility] [Provider Group] - Follow up as needed [facility] [Provider Group] - Follow up as needed [facility] [Provider Group] - Follow up as needed [facility] [Provider Group] - Follow up as needed [facility] [Provider Group] - Follow up as needed [facility] [Provider Group] - Follow up as needed [facility] [Provider Group] - Follow up as needed
[2019-07-12] MEDS ORDERED: MAGNESIUM CITRATE 296 ML BOTTLE PO ONE (14:16)
[2019-07-12 14:42] VITALS: BP 134/76
== END 2019-07-12 14:42 | disposition home or self-care (01) ==
LOC: ER 12:27
DX: K59.00 Constipation, unspecified (principal); R19.7 Diarrhea, unspecified; R10.84 Generalized abdominal pain; F17.210 Nicotine dependence, cigarettes, uncomplicated; Z88.0 Allergy status to penicillin; Z88.1 Allergy status to other antibiotic agents
CPT/HCPCS: 36415; 83690; 84443; 85025; 81025; 80053; 81001; 74018; J2765; J7030; 96361; 96374; 99284

== ENCOUNTER 2019-07-31 12:58 | Emergency (ER) | payer SELFPAY ==
[2019-07-31 13:07] VITALS: BP 136/86
--- NOTE | 2019-07-31 13:27 | ER Document Report ---
HPI - HPI Patient complains to provider of: COUGH FEVER BODY ACHES Time Seen by Provider: 07/31/19 13:20 Onset: Other Onset/Duration: Persistent Quality of pain: Achy Context: 43-year-old female presents emergency department with complaints of cough fever body aches since Tuesday. Reports she is taking DayQuil. Reports she did have a sore throat but that is better. She also complains of left ear pain this morning. Denies vomiting diarrhea. Denies abdominal pain. Denies pain with void. Did not receive flu vaccine. Patient works at the [employer]. Associated Symptoms: Body/muscle aches, Nonproductive cough, Earache, Fever, Sore throat Exacerbated by: Denies Relieved by: Denies Similar symptoms previously: No Recently seen / treated by doctor: No - REPRODUCTIVE Reproductive: DENIES: : Past Medical History - General Information source: Patient Last Menstrual Period: June - Social History Smoking Status: Current Every Day Smoker Cigarette use (# per day): Yes Family History: Reviewed & Not Pertinent, CVA, DM, Hypertension, Thyroid Disfunction Patient has suicidal ideation: No Patient has homicidal ideation: No Endocrine Medical History: Reports: Hx Hypothyroidism Renal/ Medical History: Denies: Hx Peritoneal Dialysis Psychiatric Medical History: Reports: Hx Depression Past Surgical History: Reports: Hx Abdominal Surgery - hernia, Hx Cardiac Catheterization - No coronary artery disease, Hx Section - 2, Hx Gynecologic Surgery - LEEP, Hx Umbilical Hernia - x2 - Immunizations Immunizations up to date: No Hx Diphtheria, Pertussis, Tetanus Vaccination: - unk Hx Pneumococcal Vaccination: 08/01/00 Vertical Provider Document - CONSTITUTIONAL Agree With Documented VS: Yes Exam Limitations: No Limitations General Appearance: WD/WN, No Apparent Distress - INFECTION CONTROL TRAVEL OUTSIDE OF THE [place] IN LAST 30 DAYS: No - HEENT HEENT: Atraumatic, Normal ENT Exam, Normocephalic, PERRLA. negative: Conjuctival Injection, Pharyngeal Erythema, Tympanic Membrane Red, Tympanic Membrane Bulging - NECK Neck: Normal Inspection, Supple. negative: Lymphadenopathy-Left, Lymphadenopathy-Right - RESPIRATORY Respiratory: Breath Sounds Normal, No Respiratory Distress - CARDIOVASCULAR Cardiovascular: Regular Rate, Regular Rhythm - GI/ABDOMEN Gastrointestinal: Abdomen Soft, Abdomen Non-Tender - MUSCULOSKELETAL/EXTREMETIES Musculoskeletal/Extremeties: MAEW, FROM, Non-Tender - NEURO Level of Consciousness: Awake, Alert, Appropriate Motor/Sensory: No Motor Deficit - DERM Integumentary: Warm, Dry, No Rash Course - Re-evaluation Re-evalutation: 07/31/19 13:25 43-year-old female presents emergency department with complaints of cough fever body aches. She works at [employer]. 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 She did not receive her flu vaccine. Denies vomiting diarrhea. Influenza test and chest x-ray ordered. 07/31/19 14:30 Chest x-ray negative flu negative. Patient instructed on importance of pushing fluids follow-up with primary care provider good handwashing. She verbalized understanding to all instructions. Chest X-Ray 07/31/19 13:23 IMPRESSION: No focal consolidation or other evidence of acute cardiopulmonary process. - Vital Signs Vital signs: Temp Pulse Resp BP Pulse Ox 98.1 F 85 12 136/86 H 99 07/31/19 13:07 07/31/19 13:07 07/31/19 13:07 07/31/19 13:07 07/31/19 13:07 - Diagnostic Test Radiology reviewed: Reports reviewed Discharge - Discharge Clinical Impression: Cough, Body aches, Fever Condition: Stable Disposition: HOME, SELF-CARE Instructions: Fever ([facility]) Additional Instructions: *You have been evaluated for cough body aches fever Your chest x-ray was negative for pneumonia. Your flu test is also negative *Increase fluid intake as discussed *Monitor your temperature, take Tylenol as indicated *Follow up with a primary care provider within 1 week for recheck *Return to ED for worsening condition, changes, needs I have greeted and performed a rapid initial assessment of this patient. A comprehensive ED assessment and evaluation of the patient, analysis of test results and completion of the medical decision making process will be conducted by additional ED providers. Forms: Elevated Blood Pressure, Return to Work
--- NOTE | 2019-07-31 13:57 | RADIOLOGY REPORT (SQ) ---
EXAM DESCRIPTION: CHEST 2 VIEWS COMPLETED DATE/TIME: 07/31/2019 1:36 pm REASON FOR STUDY: COUGH FEVER COMPARISON: 12/03/2018 EXAM PARAMETERS: NUMBER OF VIEWS: two views TECHNIQUE: Digital Frontal and Lateral radiographic views of the chest acquired. RADIATION DOSE: NA LIMITATIONS: none FINDINGS: LUNGS AND PLEURA: No opacities, masses or pneumothorax. No pleural effusion. MEDIASTINUM AND HILAR STRUCTURES: No masses or contour abnormalities. HEART AND VASCULAR STRUCTURES: Heart normal size. No evidence for failure. BONES: No acute findings. Significant Serpiginous thoracolumbar curvature. HARDWARE: None in the chest. OTHER: No other significant finding. IMPRESSION: No focal consolidation or other evidence of acute cardiopulmonary process. TECHNICAL DOCUMENTATION: JOB ID: [id number] [employer]- All Rights Reserved Reading location - IP/workstation name: [email or web address]
[2019-07-31 14:12] LABS: A TYPE INFLUENZA AG NEGATIVE (NEGATIVE); B INFLUENZA AG NEGATIVE (NEGATIVE)
== END 2019-07-31 14:40 | disposition home or self-care (01) ==
LOC: ER 12:58
DX: R05 Cough (principal); M79.10 Myalgia, unspecified site; R50.9 Fever, unspecified; J02.9 Acute pharyngitis, unspecified; H92.02 Otalgia, left ear; H92.09 Otalgia, unspecified ear; F17.200 Nicotine dependence, unspecified, uncomplicated
CPT/HCPCS: 71046; 87804; 99283

== ENCOUNTER 2019-08-30 12:23 | Emergency (ER) | payer SELFPAY ==
[2019-08-30 12:33] VITALS: BP 134/99
--- NOTE | 2019-08-30 13:15 | ER Document Report ---
ED Medical Screen (RME) - General Chief Complaint: Breathing Difficulty Stated Complaint: DIFFICULTY BREATHING Time Seen by Provider: 08/30/19 13:11 Mode of Arrival: Wheelchair Information source: Patient Notes: 43-year-old female presented to ED for complaint of cough congestion shortness of breath. She states she was so short of breath that they sent her to the emergency room from working. She does have a history of bronchitis. She does not have a history of asthma. She states she does smoke 1/2 pack a day she states she does not drink alcohol or use any illicit drugs. She is alert and oriented speaking in sentences. Patient does have inspiratory wheezes throughout. I have greeted and performed a rapid initial assessment of this patient. A comprehensive ED assessment and evaluation of the patient, analysis of test results and completion of medical decision making process will be conducted by an additional ED providers. TRAVEL OUTSIDE OF THE [place] IN LAST 30 DAYS: No - Related Data Allergies/Adverse Reactions: Penicillins Allergy (Mild, Verified 07/31/19 13:20) sulfamethoxazole [From Bactrim] Allergy (Verified 07/31/19 13:20) trimethoprim [From Bactrim] Allergy (Verified 07/31/19 13:20) Past Medical History - Social History Family history: DM, Thyroid Disfunction, Other - scoliosis Endocrine Medical History: Reports: Hx Hypothyroidism Renal/ Medical History: Denies: Hx Peritoneal Dialysis Psychiatric Medical History: Reports: Hx Depression Past Surgical History: Reports: Hx Abdominal Surgery - hernia, Hx Cardiac C atheterization - No coronary artery disease, Hx Section - 2, Hx Gynecologic Surgery - LEEP, Hx Umbilical Hernia - x2 - Immunizations Immunizations up to date: No Hx Diphtheria, Pertussis, Tetanus Vaccination: - unk Physical Exam - Vital signs Vitals: Temp Pulse Resp BP Pulse Ox 97.9 F 79 16 134/99 H 99 08/30/19 12:08/30/19 12:08/30/19 12:08/30/19 12:08/30/19 12:31 Course - Vital Signs Vital signs: Temp Pulse Resp BP Pulse Ox 97.9 F 79 16 134/99 H 99 08/30/19 12:31 08/30/19 12:31 08/30/19 12:31 08/30/19 12:08/30/19 12:31
[2019-08-30] MEDS ORDERED: IPRATROPIUM/ALBUTEROL 0.5-2.5 MG/3 ML AMPUL NEB ONE (13:16)
[2019-08-30] MEDS ORDERED: PREDNISONE 20 MG TABLET PO ONE (13:16)
[2019-08-30] MEDS: ALBUTEROL SULFATE 0.083% NEB 2.5 MG/3 ML AMPUL NEB SCH ×2 (13:38→13:57)
--- NOTE | 2019-08-30 13:49 | RADIOLOGY REPORT (SQ) ---
EXAM DESCRIPTION: CHEST 2 VIEWS COMPLETED DATE/TIME: 08/30/2019 1:27 pm REASON FOR STUDY: cough congestion wheezing COMPARISON: 2019 TECHNIQUE: Frontal and lateral radiographic views of the chest acquired. NUMBER OF VIEWS: Two view. LIMITATIONS: None. FINDINGS: LUNGS AND PLEURA: No opacities, masses or pneumothorax. No pleural effusion. MEDIASTINUM AND HILAR STRUCTURES: No masses or contour abnormalities. HEART AND VASCULAR STRUCTURES: Heart normal size. No evidence for failure. BONES: Scoliosis, chronic. HARDWARE: None in the chest. OTHER: No other significant finding. IMPRESSION: NO SIGNIFICANT RADIOGRAPHIC FINDING IN THE CHEST. TECHNICAL DOCUMENTATION: JOB ID: [id number] [employer]- All Rights Reserved Reading location - IP/workstation name: [email or web address]
--- NOTE | 2019-08-30 16:53 | ER Document Report ---
ED General - General Chief Complaint: Shortness Of Breath Stated Complaint: DIFFICULTY BREATHING Time Seen by Provider: 08/30/19 13:11 Mode of Arrival: Wheelchair Information source: Patient Notes: 43-year-old female with history of smoking presents emergency department with complaints of severe cough. She reports she was at work and she coughed so hard she thought she could not breathe. She reports she is had this cough for over a month. She reports she has been evaluated in this emergency department for the cough. She denies iliana pain, fever, vomiting, diarrhea. She reports she feels much better after she received a neb treatment. Patient reports she is coughing up some sputum every now and then. She reports she is eating drinking voiding as normal. Also reports she has been taking [id number] cough medicine without relief of symptoms. TRAVEL OUTSIDE OF THE [place] IN LAST 30 DAYS: No - HPI Onset: Other Onset/Duration: Persistent Quality of pain: No pain Associated symptoms: Productive cough Exacerbated by: Denies Relieved by: Denies Similar symptoms previously: Yes Recently seen / treated by doctor: Yes - Related Data Allergies/Adverse Reactions: Penicillins Allergy (Mild, Verified 07/31/19 13:20) sulfamethoxazole [From Bactrim] Allergy (Verified 07/31/19 13:20) trimethoprim [From Bactrim] Allergy (Verified 07/31/19 13:20) Home Medications: Levothyroxine. Advil Past Medical History - General Information source: Patient - Social History Smoking Status: Current Every Day Smoker Cigarette use (# per day): Yes Frequency of alcohol use: None Drug Abuse: None Lives with: Family Family History: Reviewed & Not Pertinent, CVA, DM, Hypertension, Thyroid Disfunction Patient has suicidal ideation: No Patient has homicidal ideation: No Pulmonary Medical History: Reports: Hx Bronchitis Endocrine Medical History: Reports: Hx Hypothyroidism Renal/ Medical History: Denies: Hx Peritoneal Dialysis Psychiatric Medical History: Reports: Hx Depression Past Surgical History: Reports: Hx Abdominal Surgery - hernia, Hx Cardiac Catheterization - No coronary artery disease, Hx Section - 2, Hx Gynecologic Surgery - LEEP, Hx Umbilical Hernia - x2 - Immunizations Immunizations up to date: No Hx Diphtheria, Pertussis, Tetanus Vaccination: - unk Hx Pneumococcal Vaccination: 08/01/00 Review of Systems - Review of Systems Notes: Review HPI for review of systems., All other systems negative Physical Exam - Vital signs Vitals: Temp Pulse Resp BP Pulse Ox 97.9 F 79 16 134/99 H 99 08/30/19 12:31 08/30/19 12:08/30/19 12:08/30/19 12:08/30/19 12:31 - Notes Notes: PHYSICAL EXAMINATION: GENERAL: Well-appearing and in no acute distress HEAD: Atraumatic, normocephalic. EYES: extraocular movements intact, sclera anicteric, conjunctiva are normal. ENT: nares patent, oropharynx clear without exudates. Moist mucous membranes. NECK: Normal range of motion, supple without lymphadenopathy LUNGS: CTAB and equal. No wheeze HEART: Regular rate and rhythm without murmurs ABDOMEN: Soft, no tenderness. No guarding, no rebound EXTREMITIES: Normal range of motion NEUROLOGICAL: Cranial nerves grossly intact. Normal sensory/motor exams. PSYCH: Normal mood, normal affect. SKIN: Warm, Dry, normal turgor, no rashes or lesions noted Course - Re-evaluation Re-evalutation: 08/30/19 18:37 Patient presents with cough for over a month. She is a smoker. She reports she has bronchitis on a yearly basis. Chest x-ray is negative. She was instructed to quit smoking. Discharged home with inhaler, steroids and zpack. Patient was instructed to follow-up with primary care provider within 1 week for recheck return for difficulty breathing or concerns. She verbalized understanding to all instructions. Chest X-Ray 08/30/19 13:16 IMPRESSION: NO SIGNIFICANT RADIOGRAPHIC FINDING IN THE CHEST. - Vital Signs Vital signs: Temp Pulse Resp BP Pulse Ox 97.9 F 79 16 134/99 H 99 08/30/19 12:31 08/30/19 12:08/30/19 12:08/30/19 12:08/30/19 12:31 - Diagnostic Test Radiology reviewed: Reports reviewed Discharge - Discharge Clinical Impression: Cough, Bronchitis Condition: Stable Disposition: HOME, SELF-CARE Instructions: Azithromycin ([facility]), Bronchodilators ([facility]), Stop Smoking ([facility]), Steroid Medication Additional Instructions: *You have been evaluated for a cough, bronchitis, wheeze *Your chest x-ray was negative for pneumonia *Take medication as prescribed, use the inhaler as prescribed *Increase fluids *Quit smoking *Monitor your temperature, take Tylenol as indicated *Follow up with a primary care provider within 1 week for recheck *Return to ED for increasing fever, cough, worsening condition, changes, needs Monitor your blood pressure. Your blood pressure was elevated today. This may be because you were anxious, in pain or because you need medication. It is important to follow up with your primary care provider for full evaluation. Prescriptions: Prednisone [Deltasone 10 mg Tablet] 10 mg PO ASDIR PRN #21 tablet PRN Reason: Azithromycin [Zithromax 250 mg Tablet] 250 mg PO ASDIR PRN #6 tablet PRN Reason: Forms: Elevated Blood Pressure, Smoking Cessation Education, Return to Work
[2019-08-30] MEDS ORDERED: ALBUTEROL SULFATE HFA (90 MCG/PUFF) 8 GM MDI (1 MDI/ER DISP) IH ONE (17:05)
== END 2019-08-30 17:18 | disposition home or self-care (01) ==
LOC: ER 12:23
DX: J40 Bronchitis, not specified as acute or chronic (principal); R06.02 Shortness of breath; F17.210 Nicotine dependence, cigarettes, uncomplicated; Z88.0 Allergy status to penicillin; Z88.3 Allergy status to other anti-infective agents
CPT/HCPCS: 94640 ×2; 99283; 71046; J7512; J3490; J7620

== ENCOUNTER 2019-10-10 15:49 | Emergency (ER) | payer SELFPAY | END 2019-10-10 16:41 | disposition left against medical advice (07) | LOC: ER 15:49 | DX: Z53.21 Procedure and treatment not carried out due to patient leaving prior to being seen by health care provider (principal) ==

== ENCOUNTER 2019-12-20 13:28 | Emergency (ER) | payer SELFPAY ==
--- NOTE | 2019-12-20 14:20 | ER Document Report ---
ED Respiratory Problem - General Chief Complaint: Cough Stated Complaint: COUGH Time Seen by Provider: 12/20/19 13:55 Primary Care Provider: ALINE SWENSON MD [ACTIVE STAFF] - Follow up as needed Mode of Arrival: Ambulatory Information source: Patient Notes: 43-year-old female past medical history significant for hypothyroidism, chronic bronchitis presents to the emergency room with a persistent cough for the past week. Denies any fevers. No nausea, no vomiting, states she is been taking Robitussin without relief. No recent travel, no COVID-19 exposure no COVID-19 symptoms. Denies chest pain, shortness of breath, no difficulty breathing. Denies . TRAVEL OUTSIDE OF THE [place] IN LAST 30 DAYS: No - Related Data Allergies/Adverse Reactions: Penicillins Allergy (Mild, Verified 12/20/19 13:37) sulfamethoxazole [From Bactrim] Allergy (Verified 12/20/19 13:37) trimethoprim [From Bactrim] Allergy (Verified 12/20/19 13:37) Past Medical History - General Information source: Patient - Social History Smoking Status: Current Every Day Smoker Chew tobacco use (# tins/day): No Frequency of alcohol use: None Drug Abuse: None Family History: Reviewed & Not Pertinent, CVA, DM, Hypertension, Thyroid Disfunction Patient has homicidal ideation: No Pulmonary Medical History: Reports: Hx Bronchitis Endocrine Medical History: Reports: Hx Hypothyroidism Renal/ Medical History: Denies: Hx Peritoneal Dialysis Psychiatric Medical History: Reports: Hx Depression Past Surgical History: Reports: Hx Abdominal Surgery - hernia, Hx Cardiac Catheterization - No coronary artery disease, Hx Section - 2, Hx Gynecologic Surgery - LEEP, Hx Umbilical Hernia - x2 - Immunizations Immunizations up to date: No Hx Diphtheria, Pertussis, Tetanus Vaccination: - unk Hx Pneumococcal Vaccination: 08/01/00 Review of Systems - Review of Systems Constitutional: No symptoms reported EENT: No symptoms reported Cardiovascular: No symptoms reported Respiratory: Cough. denies: Short of breath, Sputum, Wheezing Musculoskeletal: No symptoms reported Skin: No symptoms reported Neurological/Psychological: No symptoms reported -: Yes All other systems reviewed and negative Physical Exam - Vital signs Vitals: Temp Pulse Resp BP Pulse Ox 98.4 F 102 H 16 124/87 H 98 12/20/19 13:34 12/20/19 13:34 12/20/19 13:34 12/20/19 13:34 12/20/19 13:34 - General General appearance: Appears well, Alert In distress: Mild - Respiratory Respiratory status: No respiratory distress Chest status: Nontender Breath sounds: Normal Chest palpation: Normal - Cardiovascular Rhythm: Tachycardia Heart sounds: Normal auscultation Murmur: No - Back Back: Normal, Nontender. No: CVA tenderness - Neurological Neuro grossly intact: Yes Cognition: Normal Orientation: AAOx4 [place] Coma Scale Eye Opening: Spontaneous [place] Coma Scale Verbal: Oriented [place] Coma Scale Motor: Obeys Commands [place] Coma Scale Total: 15 Speech: Normal Motor strength normal: LUE, RUE, LLE, RLE Sensory: Normal - Skin Skin Temperature: Warm Skin Moisture: Dry Skin Color: Normal Course - Re-evaluation Re-evalutation: 12/20/19 15:13 Patient is resting comfortably no acute distress afebrile, non toxic appearing reviewed xray results with patient. Vital signs are stable. Counseled on viral vs bacterial infection. Take medications as prescribed. Counseled to take medications as prescribed. Outpatient follow-up with primary care physician if not improving in 2 to 3 days. On-call physician was provided. Patient was given strict return to the emergency room guidelines. Return for any new or worsening symptoms. All questions were answered. Patient verbalized understanding and agrees with plan of care. 12/20/19 15:49 12/20/19 15:50 - Vital Signs Vital signs: Temp Pulse Resp BP Pulse Ox 98.2 F 69 16 113/87 H 100 12/20/19 15:25 12/20/19 15:25 12/20/19 15:25 12/20/19 15:25 12/20/19 15:25 - Diagnostic Test Radiology reviewed: Reports reviewed Discharge - Discharge Clinical Impression: Cough Condition: Stable Disposition: HOME, SELF-CARE Instructions: Bronchitis ([facility]), Cough Suppressant & Expectorant Medications Additional Instructions: Rest push fluids, Medications as prescribed follow up with a primary care provider if not improving n 2 to 3 days return for any new or worsening symptoms Prescriptions: Benzonatate 200 mg PO TID 10 Days #30 capsule Azithromycin [Zithromax 250 mg Tablet] 250 mg PO ASDIR PRN #6 tablet PRN Reason: Forms: Return to Work Referrals: OALINE LE MD [ACTIVE STAFF] - Follow up as needed
--- NOTE | 2019-12-20 15:02 | RADIOLOGY REPORT (SQ) ---
EXAM DESCRIPTION: CHEST SINGLE VIEW IMAGES COMPLETED DATE/TIME: 12/20/2019 2:52 pm REASON FOR STUDY: cough COMPARISON: 08/30/2019. EXAM PARAMETERS: NUMBER OF VIEWS: One view. TECHNIQUE: Single frontal radiographic view of the chest acquired. RADIATION DOSE: NA LIMITATIONS: None. FINDINGS: LUNGS AND PLEURA: No opacities, masses or pneumothorax. No pleural effusion. MEDIASTINUM AND HILAR STRUCTURES: No masses. Contour normal. HEART AND VASCULAR STRUCTURES: Heart normal in size. Normal vasculature. BONES: No acute findings. Chronic scoliosis. HARDWARE: None in the chest. OTHER: No other significant finding. IMPRESSION: NO ACUTE RADIOGRAPHIC FINDING IN THE CHEST. TECHNICAL DOCUMENTATION: JOB ID: [id number] 2010 [employer]- All Rights Reserved Reading location - IP/workstation name: [email or web address]
[2019-12-20 15:41] VITALS: BP 113/87
== END 2019-12-20 15:30 | disposition home or self-care (01) ==
LOC: ER 13:28
DX: R05 Cough (principal); F17.200 Nicotine dependence, unspecified, uncomplicated; Z88.0 Allergy status to penicillin; Z88.1 Allergy status to other antibiotic agents
CPT/HCPCS: 71045; 99283

== ENCOUNTER 2020-01-24 16:15 | Inpatient (IN) | payer SELFPAY ==
--- NOTE | 2020-01-24 17:59 | ER Document Report ---
ED General - General Chief Complaint: Headache Stated Complaint: HEADACHE,BLURRED VISION Notes: Patient is a 44-year-old white female with a history of COPD migraine headaches who presents to the emergency department the chief complaint of left-sided weakness. The patient reports around 11 AM this morning she started to have some bilateral blurry vision. She states that she sometimes gets this when she gets migraines. She reports shortly after that she developed a left-sided parietal area headache that she describes as pressure. She states this was associated with left side tingling and weakness that started around 11:30 AM. She states that she tried to wait it out and it did not improve so around 4 PM this afternoon she took 81 mg of aspirin per her bosses instruction and was told to report to the emergency department. She admits to ongoing bilateral blurry vision, left arm and left leg tingling and weakness. She states she was having some ataxia with the left leg given the weakness. She denies any speech disturbances. Admits to family history of stroke in grandmother. Patient is a current everyday smoker. Denies any chest pain or shortness of breath. No history of blood clots. Patient's last known normal was around 11 AM. TRAVEL OUTSIDE OF THE [place] IN LAST 30 DAYS: No - Related Data Allergies/Adverse Reactions: Penicillins Allergy (Mild, Verified 12/20/19 13:37) sulfamethoxazole [From Bactrim] Allergy (Verified 12/20/19 13:37) trimethoprim [From Bactrim] Allergy (Verified 12/20/19 13:37) Home Medications: Synthroid, magnesium and probiotics Past Medical History - Social History Smoking Status: Current Every Day Smoker Family History: Reviewed & Not Pertinent, CVA, DM, Hypertension, Thyroid Disfunction Patient has homicidal ideation: No Pulmonary Medical History: Reports: Hx Bronchitis Endocrine Medical History: Reports: Hx Hypothyroidism Renal/ Medical History: Denies: Hx Peritoneal Dialysis Psychiatric Medical History: Reports: Hx Depression Past Surgical History: Reports: Hx Abdominal Surgery - hernia, Hx Cardiac Catheterization - No coronary artery disease, Hx Section - 2, Hx Gynecologic Surgery - LEEP, Hx Umbilical Hernia - x2 - Immunizations Immunizations up to date: No Hx Diphtheria, Pertussis, Tetanus Vaccination: - unk Hx Pneumococcal Vaccination: 08/01/00 Review of Systems - Review of Systems EENT: Blurred vision Neurological/Psychological: Weakness, Tingling, Other - Headache -: Yes All other systems reviewed and negative Physical Exam - Vital signs Vitals: Temp Pulse Resp BP Pulse Ox 98.3 F 78 14 135/94 H 100 01/24/20 17:38 01/24/20 17:38 01/24/20 17:38 01/24/20 17:38 01/24/20 17:38 - General General appearance: Appears well, Alert In distress: None - HEENT Head: Normocephalic, Atraumatic Eyes: Normal Conjunctiva: Normal Extraocular movements intact: Yes Pupils: Pinpoint - Equal Ears: Normal External canal: Normal Tympanic membrane: Normal Pharynx: Normal, Other - Tongue protrusion and cytocide motion intact. Gag reflex intact. Neck: Normal, Supple - Respiratory Respiratory status: No respiratory distress Chest status: Nontender Breath sounds: Normal Chest palpation: Normal - Cardiovascular Rhythm: Regular Heart sounds: Normal auscultation Murmur: No - Extremities General upper extremity: Normal inspection, Nontender, Normal ROM, Other - Left arm 4 out of 5 compared with the right 5 out of 5 strength General lower extremity: Normal inspection, Nontender, Normal ROM, Other - Left leg 4 out of 5 strength compared with the right which is 5 out of 5 - Neurological Neuro grossly intact: Yes Cognition: Normal Orientation: AAOx4 [place] Coma Scale Eye Opening: Spontaneous [place] Coma Scale Verbal: Oriented [place] Coma Scale Motor: Obeys Commands [place] Coma Scale Total: 15 Speech: Normal Cranial nerves: Normal. No: Facial palsy, Gaze palsy Cerebellar coordination: Other - Slight ataxia normal [id number]. Normal [id number]. Normal rapid alternating hand movements. Motor strength normal: RUE, RLE Additional motor exam normals: Other - Dye Weigher 4 out of 5 on the left compared with the right which is 5 out of 5. No drift about the extremities. Patient able to easily hold the left upper arm and left leg to gravity without drift. Some obvious weakness of the left upper and left lower extremity Sensory: Normal - Psychological Associated symptoms: Normal affect, Normal mood - Skin Skin Temperature: Warm Skin Moisture: Dry Skin Color: Normal Course - Re-evaluation Re-evalutation: 01/24/20 18:23 EK: Sinus bradycardia at 53 bpm. Otherwise normal intervals. Some T wave inversions noted in V1 V3 and lead III. This seems mostly unchanged from prior EKG dated December 03, 2018. No STEMI. Interpreted by ED attending. 01/24/20 19:25 Patient has an NIH of 2 at this point. She is not a candidate for TPA 11 AM. 01/24/20 19:[address] Dutta, hospitalist. He will admit the patient for further work-up. Patient is stable at this time. Reports her headache is improving. Her NIH is still 2. No improvement or worsening of the neurological symptoms otherwise. She is stable for admission at this time. - Vital Signs Vital signs: Temp Pulse Resp BP Pulse Ox 98.3 F 78 14 135/94 H 100 01/24/20 17:38 01/24/20 17:38 01/24/20 17:38 01/24/20 17:38 01/24/20 17:38 - Laboratory Result Diagrams: 01/24/20 18:00 01/24/20 18:00 Laboratory results interpreted by me: 01/24/20 18:00 RBC 3.61 L Hgb 11.3 L Hct 33.0 L Eos % (Auto) 6.2 H Discharge - Discharge Clinical Impression: CVA (cerebral vascular accident) Qualifiers: CVA mechanism: unspecified Qualified Code(s): I63.9 - Cerebral infarction, unsp ecified Condition: Stable Disposition: ADMITTED INPATIENT Admitting Provider: rTa (Hospitalist) Unit Admitted: [facility]
--- NOTE | 2020-01-24 18:27 | RADIOLOGY REPORT (SQ) ---
EXAM DESCRIPTION: CT HEAD WITHOUT IMAGES COMPLETED DATE/TIME: 01/24/2020 6:15 pm REASON FOR STUDY: BOYD, blurry vision, left side weakness COMPARISON: None. TECHNIQUE: Axial images acquired through the brain without intravenous contrast. Images reviewed wi th bone, brain and subdural windows. Additional sagittal and coronal reconstructions were generated. Images stored on PACS. All CT scanners at this facility use dose modulation, iterative reconstruction, and/or weight based d osing when appropriate to reduce radiation dose to as low as reasonably achievable (ALARA). [facility]: Dose Right [facility]: CareDose [facility]: Dose Right [facility]: Teradose 4D [facility]: [employer] RADIATION DOSE: CT Rad equipment meets quality standard of care and radiation dose reduction techniq ues were employed. CTDIvol: 48.5 mGy. DLP: 855 mGy-cm. mGy. LIMITATIONS: None. FINDINGS: VENTRICLES: Normal size and contour. CEREBRUM: No masses. No hemorrhage. No midline shift. No evidence for acute infarction. Normal gra y/white matter differentiation. No areas of low density in the white matter. CEREBELLUM: No masses. No hemorrhage. No alteration of density. No evidence for acute infarction. EXTRAAXIAL SPACES: No fluid collections. No masses. ORBITS AND GLOBE: No intra- or extraconal masses. Normal contour of globe without masses. CALVARIUM: No fracture. PARANASAL SINUSES: No fluid or mucosal thickening. SOFT TISSUES: No mass or hematoma. OTHER: No other significant finding. IMPRESSION: NORMAL BRAIN CT WITHOUT CONTRAST. EVIDENCE OF ACUTE STROKE: NO. COMMENT: Quality ID # [id number]: Final reports with documentation of one or more dose reduction techniques (e.g., Automated exposure control, adjustment of the mA and/or kV according to patient size, use of iterative reconstruction technique) TECHNICAL DOCUMENTATION: JOB ID: [id number] 2010 [employer]- All Rights Reserved Reading location - IP/workstation name: [email or web address]
[2020-01-24 18:32] LABS: URINE AMPHETAMINES SCREEN NEGATIVE; URINE BARBITURATES SCREEN NEGATIVE; URINE BENZODIAZEPINES SCREEN NEGATIVE; URINE METHADONE SCREEN NEGATIVE; URINE PHENCYCLIDINE SCREEN NEGATIVE
[2020-01-24 18:34] LABS: URINE COCAINE SCREEN UNCONFIRMED POSITIVE
[2020-01-24 18:35] LABS: URINE MARIJUANA (THC) SCREEN UNCONFIRMED POSITIVE
--- NOTE | 2020-01-24 18:40 | RADIOLOGY REPORT (SQ) ---
EXAM DESCRIPTION: CHEST SINGLE VIEW IMAGES COMPLETED DATE/TIME: 01/24/2020 6:26 pm REASON FOR STUDY: left side weakness COMPARISON: 12/20/2019 EXAM PARAMETERS: NUMBER OF VIEWS: One view. TECHNIQUE: Single frontal radiographic view of the chest acquired. RADIATION DOSE: NA LIMITATIONS: None. FINDINGS: LUNGS AND PLEURA: No opacities, masses or pneumothorax. No pleural effusion. MEDIASTINUM AND HILAR STRUCTURES: No masses. Contour normal. HEART AND VASCULAR STRUCTURES: Heart normal in size. Normal vasculature. BONES: Scoliosis HARDWARE: None in the chest. OTHER: No other significant finding. IMPRESSION: Scoliosis. No acute cardiopulmonary findings. TECHNICAL DOCUMENTATION: JOB ID: [id number] 2010 [employer]- All Rights Reserved Reading location - IP/workstation name: [email or web address]
[2020-01-24] MEDS ORDERED: ASPIRIN 81 MG TABLET, CHEWABLE PO ONE (18:41)
[2020-01-24] MEDS ORDERED: ACETAMINOPHEN 325 MG TABLET PO ONE (18:42)
[2020-01-24 18:43] LABS: ABSOLUTE BASOPHILS # (AUTO) 0.1 10^3/uL (0.0-0.2); ABSOLUTE EOSINOPHILS # (AUTO) 0.4 10^3/uL (0.0-0.6); ABSOLUTE LYMPHOCYTES (AUTO) 2.6 10^3/uL (0.5-4.7); ABSOLUTE MONOCYTES (AUTO) 0.4 10^3/uL (0.1-1.4); BASOPHILS % (AUTO) 1.4 % (0-2); EOSINOPHILS % (AUTO) 6.2 % (0-6); HEMOGLOBIN 11.3 g/dL (12.0-15.5); LYMPHOCYTES % (AUTO) 40.6 % (13-45); MEAN CORPUSCULAR HEMOGLOBIN 31.3 pg (27.0-33.4); MEAN CORPUSCULAR HGB CONC 34.3 g/dL (32.0-36.0); MEAN CORPUSCULAR VOLUME 91 fl (80-97); MONOCYTES % (AUTO) 6.1 % (3-13); PLATELET COUNT 211 10^3/uL (150-450); RED BLOOD COUNT 3.61 10^6/uL (3.72-5.28); SEGMENTED NEUTROPHILS % (AUTO) 45.7 % (42-78); TOTAL CELLS COUNTED % (AUTO) 100 %; WHITE BLOOD COUNT 6.5 10^3/uL (4.0-10.5)
[2020-01-24 18:52] LABS: INTERNATIONAL RATION (INR) 1.01; PROTHROMBIN TIME 13.3 SEC (11.4-15.4)
[2020-01-24 19:04] LABS: ALBUMIN 4.1 g/dL (3.5-5.0); ALKALINE PHOSPHATASE 74 U/L (38-126); ANION GAP 6 (5-19); ASPARTATE AMINO TRANSFERASE 23 U/L (14-36); BILIRUBIN,TOTAL 0.3 mg/dL (0.2-1.3); BLOOD UREA NITROGEN 9 mg/dL (7-20); CARBON DIOXIDE 25 mmol/L (22-30); CHLORIDE 107 mmol/L (98-107); CREATINE KINASE 73 U/L (30-135); GLUCOSE 92 mg/dL (75-110); POTASSIUM 3.9 mmol/L (3.6-5.0); TOTAL PROTEIN 6.7 g/dL (6.3-8.2)
[2020-01-24] MEDS ORDERED: ONDANSETRON HCL INJ/PF 4 MG/2 ML SDV IV PRN (20:08)
[2020-01-24] MEDS ORDERED: MAGNESIUM HYDROXIDE SUSP 30 ML UDCUP PO PRN (20:08)
[2020-01-24] MEDS ORDERED: ACETAMINOPHEN 325 MG TABLET PO PRN (20:08)
[2020-01-24] MEDS ORDERED: DOCUSATE SODIUM 100 MG CAPSULE PO PRN (20:08)
[2020-01-24] MEDS ORDERED: MAG HYDROX/AL HYDROX/SIMETH SUSP 30 ML UDCUP PO PRN (20:15)
[2020-01-24] MEDS ORDERED: NICOTINE 21 MG/24 HR PATCH.TD24 TD PRN (20:15)
[2020-01-24] MEDS ORDERED: LORAZEPAM INJ 2 MG/1 ML VIAL IV PRN (20:15)
[2020-01-24] MEDS ORDERED: GUAIFENESIN SYRP 200 MG/10 ML UDC PO PRN (20:15)
[2020-01-24] MEDS ORDERED: MORPHINE SULFATE 10 MG/ML INJ IV PRN (20:15)
[2020-01-24] MEDS ORDERED: HYDRALAZINE HCL INJ/PF 20 MG/1 ML SDV IV PRN (20:15)
[2020-01-24] MEDS: CLOPIDOGREL BISULFATE 75 MG TABLET PO SCH (21:00)
[2020-01-24] MEDS: HEPARIN SOD (PORCINE) 5,000 UNIT/ML 1 ML VIAL SUBCUT SCH (23:50)
[2020-01-24] MEDS: FAMOTIDINE 20 MG TABLET PO SCH (23:50)
--- NOTE | 2020-01-25 01:59 | PDOC H&P ---
History of Present Illness Admission Date/PCP: 01/24/2020 19:34 No local PCP Patient complains of: Left sided weakness History of Present Illness: WILLOW DOMINGO is a 44 year old female who presents the emergency room with acute left-sided weakness. She admits the sudden development, at 11 AM while at work, of bilateral blurry vision followed, a few minutes later, by the sudden onset of a left-sided constant pressure type parietal headache as well as left arm and leg weakness and tingling. Her symptoms persisted unchanged, she took 81 mg of aspirin p.o. 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 Her left-sided weakness was accompanied by difficulty with ambulation. She denies other associated or accompanying signs and symptoms. She denies prior similar episodes. She has not identified any aggravating or ameliorating factors for her symptoms. In the emergency room she was found to have mild to moderate left-sided weakness of the upper and lower extremity with subjective tingling paresthesia also involving those extremities. CT scan of the head was negative for acute changes. Laboratory evaluation was unremarkable with the exception of a chronic anemia and a urine drug screen showing presumptive positive cocaine and marijuana. She was subsequently admitted to the hospital for further evaluation and treatment per the stroke protocol. Past Medical History Cardiac Medical History: Denies: Atrial Fibrillation, Coronary Artery Disease, DVT, Myocardial Infarction, Hyperlipidema, Hypertension, Peripheral Vascular Disease, Pulmonary Embolism Pulmonary Medical History: Reports: Bronchitis Denies: Asthma, Chronic Obstructive Pulmonary Disease (COPD), Pneumonia EENT Medical History: Denies: Cataracts, Ears - Hearing aids Neurological Medical History: Reports: Migraine Denies: Hemorrhagic CVA, Ischemic CVA, Multiple Sclerosis, Seizures Endocrine Medical History: Reports: Hypothyroidism Denies: Diabetes Mellitus Type 1, Diabetes Mellitus Type 2, Hyperthyroidism Renal/ Medical History: Denies: Chronic Kidney Disease, Nephrolithiasis Malignancy Medical History: Reports: None GI Medical History: Denies: Cirrhosis, Crohn's Disease, Hepatitis, Peptic Ulcer Disease, Ulcerative Colitis Musculoskeltal Medical History: Denies: Arthritis, Fibromyalgia Skin Medical History: Denies: Eczema, Psoriasis Psychiatric Medical History: Reports: Depression, Tobacco Dependency Denies: Alcohol Dependency, Substance Abuse Traumatic Medical History: Reports: None Hematology: Reports: Anemia Denies: Bleeding Tendencies Infectious Medical History: Reports: None Past Surgical History Past Surgical History: Reports: Cardiac Catheterization - Negative for coronary artery disease, Section - X 2, Herniorrhaphy - Umbilical hernia repair x 2, Other - LEEP procedure Social History Information Source: Patient Lives with: Family, Spouse/Significant other Smoking Status: Current Every Day Smoker Electronic Cigarette use?: No Frequency of Alcohol Use: Rare Hx Recreational Drug Use: No Drugs: None Hx Prescription Drug Abuse: No - Advance Directive Resuscitation Status: Full Code Surrogate healthcare decision maker:: Hiram Antonio Family History Family History: CVA, DM, Hypertension, Thyroid Disfunction Parental Family History Reviewed: Yes Children Family History Reviewed: No Sibling(s) Family History Reviewed.: Yes Medication/Allergy Home Medications: Levothyroxine Sodium 175 mcg PO Q6AM 12/20/19 Allergies/Adverse Reactions: Penicillins Allergy (Mild, Verified 12/20/19 13:37) sulfamethoxazole [From Bactrim] Allergy (Verified 12/20/19 13:37) trimethoprim [From Bactrim] Allergy (Verified 12/20/19 13:37) Review of Systems Constitutional: PRESENT: as per HPI, headache(s). ABSENT: chills, fever(s) Eyes: PRESENT: as per HPI, visual disturbances. ABSENT: other - Eye pain Ears: ABSENT: hearing changes, other - Ear pain Nose, Mouth, and Throat: PRESENT: as per HPI, headache(s). ABSENT: sore throat Cardiovascular: ABSENT: chest pain, palpitations Respiratory: ABSENT: cough, dyspnea Gastrointestinal: ABSENT: abdominal pain, constipation, diarrhea, nausea, vomiting Genitourinary: ABSENT: dysuria, hematuria Musculoskeletal: ABSENT: back pain, joint swelling Integumentary: ABSENT: pruritus, rash Neurological: PRESENT: as per HPI, abnormal gait, focal weakness, tingling. ABSENT: abnormal movements, abnormal speech, confusion, convulsions, memory loss, syncope Psychiatric: ABSENT: anxiety, depression Endocrine: ABSENT: cold intolerance, heat intolerance, polydipsia, polyphagia, polyuria Hematologic/Lymphatic: ABSENT: easy bleeding, easy bruising Allergic/Immunologic: ABSENT: seasonal rhinorrhea Physical Exam Vital Signs: Temp Pulse Resp BP Pulse Ox 98.3 F 78 14 135/94 H 100 01/24/20 17:38 01/24/20 17:38 01/24/20 17:38 01/24/20 17:38 01/24/20 17:38 Intake & Output 01/22/20 01/23/20 01/24/20 23:59 23:59 23:59 Weight 74.843 kg General appearance: PRESENT: no acute distress, cooperative Head exam: PRESENT: atraumatic, normocephalic Eye exam: PRESENT: conjunctiva pink. ABSENT: conjunctival injection, scleral icterus Ear exam: PRESENT: normal external ear exam. ABSENT: bleeding, drainage Mouth exam: PRESENT: dry mucosa, neck supple Neck exam: ABSENT: thyromegaly, tracheal deviation Respiratory exam: PRESENT: clear to auscultation tracy, symmetrical, unlabored Cardiovascular exam: PRESENT: RRR. ABSENT: clicks, gallop, rubs Pulses: PRESENT: normal radial pulses, normal dorsalis pedis pul Vascular exam: PRESENT: normal capillary refill. ABSENT: pallor GI/Abdominal exam: PRESENT: normal bowel sounds, soft Rectal exam: PRESENT: deferred Extremities exam: ABSENT: joint swelling, pedal edema Musculoskeletal exam: PRESENT: other - Strength and left upper and lower ext remities is 4/5 compared to 5/5 on the right.. ABSENT: deformity, dislocation Neurological exam: PRESENT: alert, oriented to person, oriented to place, oriented to time, oriented to situation, CN II-XII grossly intact, motor sensory deficit - Left upper and lower extremity decreased strength to 4/5 and subjective tingling enhanced by palpation of the left upper or lower extremity. Psychiatric exam: PRESENT: appropriate affect, normal mood Skin exam: PRESENT: dry, intact, warm. ABSENT: jaundice, rash, urticaria Results Laboratory Results: 01/24/20 18:00 01/24/20 18:00 01/24/20 01/24/20 18:00 18:00 WBC 6.5 RBC 3.61 L Hgb 11.3 L Hct 33.0 L MCV 91 MCH 31.3 MCHC 34.3 RDW 14.0 Plt Count 211 Seg Neutrophils % 45.7 Sodium 137.6 Potassium 3.9 Chloride 107 Carbon Dioxide 25 Anion Gap 6 BUN 9 Creatinine 0.72 Est GFR ( Amer) > 60 Glucose 92 Calcium 9.0 Total Bilirubin 0.3 AST 23 Alkaline Phosphatase 74 Total Protein 6.7 Albumin 4.1 01/24/20 01/24/20 18:00 18:00 Creatine Kinase 73 Troponin I < 0.012 Impressions: Chest X-Ray 01/24/20 17:53 IMPRESSION: Scoliosis. No acute cardiopulmonary findings. Head CT 01/24/20 17:53 IMPRESSION: NORMAL BRAIN CT WITHOUT CONTRAST. EVIDENCE OF ACUTE STROKE: NO. Assessment and Plan - Diagnosis (1) CVA (cerebral vascular accident) Qualifiers: CVA mechanism: unspecified Qualified Code(s): I63.9 - Cerebral infarction, unspecified Is this a current diagnosis for this admission?: Yes (2) Hypothyroidism Qualifiers: Hypothyroidism type: unspecified Qualified Code(s): E03.9 - Hypothyroidism, unspecified Is this a current diagnosis for this admission?: Yes (3) Chronic anemia Is this a current diagnosis for this admission?: Yes (4) History of migraine headaches Is this a current diagnosis for this admission?: Yes (5) Tobacco use disorder, continuous Is this a current diagnosis for this admission?: Yes - Plan Summary Summary: Patient will be admitted to the [facility] where she will receive routine supportive and symptomatic cares per the stroke protocol. Physical therapy, Occupational Therapy, speech therapy and stroke nurse consults will be obtained. An MRI of the head and carotid Doppler studies will be obtained. A thyroid profile and lipid panel will be obtained. Patient will be on a cardiac diet. She will be started on Plavix 75 mg p.o. daily. She will receive Ativan 1 mg IV every 4 hours as needed for anxiety or restlessness. She will receive morphine sulfate 2 to 4 mg IV every 2 to 4 hours as needed for pain control. CBCs, metabolic profiles, magnesium levels and additional laboratory and/or radiographic evaluations will be obtained as needed. Smoking cessation is advised and counseled briefly at the bedside. A nicotine replacement patch is available for the patient's use, if desired. - Time Time Spent with patient: 15-24 minutes Smoking Cessation Education: 3 to 10 minutes Medications reviewed and adjusted accordingly: Yes Anticipated discharge: Home - Inpatient Certification Based on my medical assessment, after consideration of the patient's comorbidities, presenting symptoms, or acuity I expect that the services needed warrant INPATIENT care.: Yes I certify that my determination is in accordance with my understanding of Medicare's requirements for reasonable and necessary INPATIENT services [42 CFR 412.3e].: Yes Medical Necessity: Need Close Monitoring Due to Risk of Patient Decompensation, Need For Continuous Telemetry Monitoring, Need for Neurological Checks, Risk of Complication if Not Cared For in Hospital
--- NOTE | 2020-01-25 03:09 | RADIOLOGY REPORT (SQ) ---
MRI of the brain without contrast: 01/25/2020 2:02 AM CDT INDICATION: 44-year-old patient with left upper and lower extremity tingling and weakness COMPARISON: None available TECHNIQUE: Sagittal T1; coronal T2; axial diffusion, ADC, T2, FLAIR, gradient echo images through the brain were obtained without intravenous contrast administered. FINDINGS: Evaluation is limited by some motion artifact. No obvious restricted diffusion is seen. The cervicomedullary junction is unremarkable. The visualized orbits also appear unremarkable. No extra-axial fluid collection is seen. No midline shift or mass effect is seen. The visualized vascular flow voids appear normal. The cerebellopontine angles appear normal. No abnormal signal is seen to suggest acute hemorrhage. The yanes-white matter differentiation is normal. No focal signal abnormality is seen. No abnormal intracranial enhancement is seen. There is mild mucoperiosteal thickening at the ethmoid, sphenoid, frontal, and maxillary sinuses. IMPRESSION: No acute intracranial process is seen. Evaluation is mildly limited by some motion artifact during the examination.
[2020-01-25 05:42] LABS: HEMATOCRIT 32.2 % (36.0-47.0); MEAN CORPUSCULAR HGB CONC 34.1 g/dL (32.0-36.0); MEAN CORPUSCULAR VOLUME 91 fl (80-97); PLATELET COUNT 173 10^3/uL (150-450); RED BLOOD COUNT 3.55 10^6/uL (3.72-5.28); RED CELL DISTRIBUTION WIDTH 13.9 % (11.5-14.0); WHITE BLOOD COUNT 6.2 10^3/uL (4.0-10.5)
[2020-01-25] MEDS: HEPARIN SOD (PORCINE) 5,000 UNIT/ML 1 ML VIAL SUBCUT SCH ×2 (05:47→15:36)
[2020-01-25 05:58] LABS: BLOOD UREA NITROGEN 8 mg/dL (7-20); CALCIUM 8.9 mg/dL (8.4-10.2); CHOLESTEROL 121.02 mg/dL (0-200); GLUCOSE 86 mg/dL (75-110); TRIGLYCERIDES 105 mg/dL (<150)
[2020-01-25] MEDS ORDERED: LEVOTHYROXINE SODIUM 0.075 MG TABLET PO SCH (06:00)
[2020-01-25] MEDS ORDERED: LEVOTHYROXINE SODIUM 0.1 MG TABLET PO SCH (06:00)
[2020-01-25 06:06] LABS: CARBON DIOXIDE 22 mmol/L (22-30); CHLORIDE 112 mmol/L (98-107)
[2020-01-25 06:19] LABS: DIRECT LDL 68 mg/dL (<100)
[2020-01-25 06:30] LABS: ANION GAP 3 (5-19)
[2020-01-25] MEDS: FAMOTIDINE 20 MG TABLET PO SCH (10:43)
[2020-01-25] MEDS: CLOPIDOGREL BISULFATE 75 MG TABLET PO SCH (10:43)
--- NOTE | 2020-01-25 12:31 | RADIOLOGY REPORT (SQ) ---
EXAM DESCRIPTION: CAROTID DOPPLER IMAGES COMPLETED DATE/TIME: 01/25/2020 11:39 am REASON FOR STUDY: Left upper and lower extremity weakness/tingling COMPARISON: None. TECHNIQUE: Grayscale ultrasound, Doppler velocity and spectra, and color Doppler images acquired of the extra-cranial carotid and vertebral arteries. Images stored on PACS. LIMITATIONS: None. FINDINGS: RIGHT CAROTID CCA Velocities: Within normal limits. ICA Velocities Peak systolic Proximal 74 cm/s. Distal 101 cm/s. End diastolic Proximal 38 cm/s. Distal 58 cm/s. Proximal ICA/CCA peak systolic ratio 1.1. Spectra normal. No significant plaque. LEFT CAROTID CCA Velocities: Within normal limits. ICA Velocities Peak systolic Proximal 75 cm/s. Distal 137 cm/s. End diastolic Proximal: 33 cm/s. Distal 61 cm/s. Proximal ICA/CCA peak systolic ratio 1.0. Spectra normal. No significant plaque. VERTEBRAL ARTERIES: Antegrade flow. Normal waveforms. SUBCLAVIAN ARTERIES: Not imaged. OTHER: Mild elevated distal ICA IMPRESSION: NO HEMODYNAMICALLY SIGNIFICANT STENOSIS. ANTEGRADE VERTEBRAL ARTERIES. COMMENT: Quality ID #[id number]: Velocity criteria are extrapolated from the diameter data as defined by t he Society of Radiologists in Ultrasound Consensus Conference. Radiology 2003: 229; 340-346. TECHNICAL DOCUMENTATION: JOB ID: [id number] [email or web address]- All Rights Reserved Reading location - IP/workstation name: [email or web address]
--- NOTE | 2020-01-25 14:09 | PDOC DISCHARGE SUMMARY ---
Impression - Admit/DC Date/PCP Admission Date/Primary Care Provider: 01/24/20 19:43 Discharge Date: 01/25/20 - Discharge Diagnosis (1) CVA (cerebral vascular accident) Is this a current diagnosis for this admission?: Yes (2) Cocaine abuse Is this a current diagnosis for this admission?: Yes (3) Marijuana abuse Is this a current diagnosis for this admission?: Yes (4) Chronic anemia Is this a current diagnosis for this admission?: Yes (5) History of migraine headaches Is this a current diagnosis for this admission?: Yes (6) Hypothyroidism Is this a current diagnosis for this admission?: Yes (7) Tobacco use disorder, continuous Is this a current diagnosis for this admission?: Yes - Assessment Summary: Patient will be admitted to the [facility] where she will receive routine supportive and symptomatic cares per the stroke protocol. Physical therapy, Occupational Therapy, speech therapy and stroke nurse consults will be obtained. An MRI of the head and carotid Doppler studies will be obtained. A thyroid profile and lipid panel will be obtained. Patient will be on a cardiac diet. She will be started on Plavix 75 mg p.o. daily. She will receive Ativan 1 mg IV every 4 hours as needed for anxiety or restlessness. She will receive morphine sulfate 2 to 4 mg IV every 2 to 4 hours as needed for pain control. CBCs, metabolic profiles, magnesium levels and additional laboratory and/or radiographic evaluations will be obtained as needed. Smoking cessation is advised and counseled briefly at the bedside. A nicotine replacement patch is available for the patient's use, if desired. - Additional Information Resuscitation Status: Full Code Discharge Diet: Cardiac Discharge Activity: Activity As Tolerated Referrals: [facility] [Outside] ([facility] will call patient with an appointment after they receive their Tessie schedule and it will be a telephone appointment. [email or web address] ) Home Medications: Levothyroxine Sodium 175 mcg PO Q6AM 12/20/19 Nicotine [Nicoderm 21 mg/24 Hr Transderm Patch] 1 each TD DAILYP PRN patch.[id number] 01/25/20 History of Present Illiness History of Present Illness: WILLOW DOMINGO is a 44 year old female who presents the emergency room with acute left-sided weakness. She admits the sudden development, at 11 AM while at work, of bilateral blurry vision followed, a few minutes later, by the sudden onset of a left-sided constant pressure type parietal headache as well as left arm and leg weakness and tingling. Her symptoms persisted unchanged, she took 81 mg of aspirin p.o. 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 Her left-sided weakness was accompanied by difficulty with ambulation. She denies other associated or accompanying signs and symptoms. She denies prior similar episodes. She has not identified any aggravating or ameliorating factors for her symptoms. In the emergency room she was found to have mild to moderate left-sided weakness of the upper and lower extremity with subjective tingling paresthesia also involving those extremities. CT scan of the head was negative for acute changes. Laboratory evaluation was unremarkable with the exception of a chronic anemia and a urine drug screen showing presumptive positive cocaine and marijuana. She was subsequently admitted to the hospital for further evaluation and treatment per the stroke protocol. Hospital Course Hospital Course: The patient had physical therapy. She reports some difficulty with her left foot. She states that it Woltz immediately when she takes a step. She did receive directions for exercises with an exercise band. I feel she is ambulating safely enough for discharge to home. Physical Exam Vital Signs: Temp Pulse Resp BP Pulse Ox 98.1 F 72 15 115/59 L 99 01/25/20 08:43 01/25/20 08:43 01/25/20 08:43 01/25/20 08:43 01/25/20 08:43 Intake & Output 01/24/20 01/25/20 01/26/20 06:59 06:59 06:59 Intake Total 260 Output Total 0 Balance 260 Weight 67.4 kg General appearance: PRESENT: no acute distress Respiratory exam: PRESENT: clear to auscultation tracy, symmetrical, unlabored. ABSENT: rales, rhonchi, tachypnea, wheezes Cardiovascular exam: PRESENT: RRR, +S1, +S2 GI/Abdominal exam: PRESENT: normal bowel sounds, soft. ABSENT: tenderness Rectal exam: PRESENT: deferred Gentrourinary exam: ABSENT: indwelling catheter Extremities exam: ABSENT: pedal edema Musculoskeletal exam: PRESENT: other - Slight weakness in the dorsi and plantarflexion of the left foot. Neurological exam: PRESENT: alert, awake, oriented to person, oriented to place, oriented to time, oriented to situation, CN II-XII grossly intact Psychiatric exam: PRESENT: appropriate affect. ABSENT: agitated, anxious Results Laboratory Results: WBC 6.2 10^3/uL (4.0-10.5) 01/25/20 05:14 RBC 3.55 10^6/uL (3.72-5.28) L 01/25/20 05:14 Hgb 11.0 g/dL (12.0-15.5) L 01/25/20 05:14 Hct 32.2 % (36.0-47.0) L 01/25/20 05:14 MCV 91 fl (80-97) 01/25/20 05:14 MCH 31.0 pg (27.0-33.4) 01/25/20 05:14 MCHC 34.1 g/dL (32.0-36.0) 01/25/20 05:14 RDW 13.9 % (11.5-14.0) 01/25/20 05:14 Plt Count 173 10^3/uL (150-450) 01/25/20 05:14 Lymph % (Auto) 40.6 % (13-45) 01/24/20 18:00 Bradford % (Auto) 6.1 % (3-13) 01/24/20 18:00 Eos % (Auto) 6.2 % (0-6) H 01/24/20 18:00 Baso % (Auto) 1.4 % (0-2) 01/24/20 18:00 Absolute Neuts (auto) 3.0 10^3/uL (1.7-8.2) 01/24/20 18:00 Absolute Lymphs (auto) 2.6 10^3/uL (0.5-4.7) 01/24/20 18:00 Absolute Monos (auto) 0.4 10^3/uL (0.1-1.4) 01/24/20 18:00 Absolute Eos (auto) 0.4 10^3/uL (0.0-0.6) 01/24/20 18:00 Absolute Basos (auto) 0.1 10^3/uL (0.0-0.2) 01/24/20 18:00 Seg Neutrophils % 45.7 % (42-78) 01/24/20 18:00 PT 13.3 SEC (11.4-15.4) 01/24/20 18:00 INR 1.01 01/24/20 18:00 APTT 33.0 SEC (23.5-35.8) 01/24/20 18:00 Sodium 137.4 mmol/L (137-145) 01/25/20 05:14 Potassium 4.0 mmol/L (3.6-5.0) 01/25/20 05:14 Chloride 112 mmol/L (98-107) H 01/25/20 05:14 Carbon Dioxide 22 mmol/L (22-30) 01/25/20 05:14 Anion Gap 3 (5-19) L 01/25/20 05:14 BUN 8 mg/dL (7-20) 01/25/20 05:14 Creatinine 0.73 mg/dL (0.52-1.25) 01/25/20 05:14 Est GFR ( Amer) > 60 (>60) 01/25/20 05:14 Est GFR (MDRD) Non-Af > 60 (>60) 01/25/20 05:14 Glucose 86 mg/dL (75-110) 01/25/20 05:14 Calcium 8.9 mg/dL (8.4-10.2) 01/25/20 05:14 Magnesium 2.1 mg/dL (1.6-2.3) 01/25/20 05:14 Total Bilirubin 0.3 mg/dL (0.2-1.3) 01/24/20 18:00 Direct Bilirubin 0.0 mg/dL (0.0-0.4) 01/24/20 18:00 Neonat Total Bilirubin Not Reportable 01/24/20 18:00 Neonat Direct Bilirubin Not Reportable 01/24/20 18:00 Neonat Indirect Bili Not Reportable 01/24/20 18:00 AST 23 U/L (14-36) 01/24/20 18:00 ALT 15 U/L (<35) 01/24/20 18:00 Alkaline Phosphatase 74 U/L (38-126) 01/24/20 18:00 Creatine Kinase 73 U/L (30-135) 01/24/20 18:00 Troponin I < 0.012 ng/mL 01/24/20 18:00 Total Protein 6.7 g/dL (6.3-8.2) 01/24/20 18:00 Albumin 4.1 g/dL (3.5-5.0) 01/24/20 18:00 Triglycerides 105 mg/dL (<150) 01/25/20 05:14 Cholesterol 121.02 mg/dL (0-200) 01/25/20 05:14 LDL Cholesterol Direct 68 mg/dL (<100) 01/25/20 05:14 VLDL Cholesterol 21.0 mg/dL (10-31) 01/25/20 05:14 HDL Cholesterol 39 mg/dL (>40) L 01/25/20 05:14 TSH 11.00 uIU/mL (0.47-4.68) H 01/25/20 05:14 Free T3 pg/mL 2.07 pg/mL (2.77-5.27) L 01/24/20 18:00 Urine Opiates Screen NEGATIVE 01/24/20 17:36 Urine Methadone Screen NEGATIVE 01/24/20 17:36 Ur Barbiturates Screen NEGATIVE 01/24/20 17:36 Ur Phencyclidine Scrn NEGATIVE 01/24/20 17:36 Ur Amphetamines Screen NEGATIVE 01/24/20 17:36 U Benzodiazepines Scrn NEGATIVE 01/24/20 17:36 Urine Cocaine Screen UNCONFIRMED POSITIVE 01/24/20 17:36 U Marijuana (THC) Screen UNCONFIRMED POSITIVE 01/24/20 17:36 01/24/20 18:00 Troponin I < 0.012 Impressions: Head MRI 01/24/20 00:00 IMPRESSION: No acute intracranial process is seen. Evaluation is mildly limited by some motion artifact during the examination. Chest X-Ray 01/24/20 17:53 IMPRESSION: Scoliosis. No acute cardiopulmonary findings. Head CT 01/24/20 17:53 IMPRESSION: NORMAL BRAIN CT WITHOUT CONTRAST. EVIDENCE OF ACUTE STROKE: NO. Carotid Doppler Study 01/24/20 20:11 IMPRESSION: NO HEMODYNAMICALLY SIGNIFICANT STENOSIS. ANTEGRADE VERTEBRAL ARTERIES. Plan Health Concerns: Toxicology screen was positive for marijuana and cocaine. With a normal MRI, carotid ultrasound and CT scan it is worrisome that this could have been a cocaine induced event. Also, the patient has no health insurance. This precludes structured physical therapy either outpatient or with home health. Also prevents insurance coverage for DME specifically front wheel walker. Mild concern for secondary gain. Plan of Treatment: Home exercise therapy. Obtain a front wheel walker. Avoid illicit drugs. Goals: Abstinence from illicit drugs Full recovery of function Time Spent: Greater than 30 Minutes Stroke Is this a Stroke Patient?: Yes Stroke Pt being discharged on Anti-thrombolytic therapy?: Yes Stroke Pt being discharged on Anti-coagulation therapy?: No Reason(s) for not prescribing Anti-coagulation therapy:: Not indicated Stroke Pt being discharged on Statins?: No Reason(s) for not prescribing Statins therapy:: Not indicated - Likely cocaine induced event Acute Heart Failure - Is this a Heart Failure Patient?: No
[2020-01-25 15:35] VITALS: BP 105/53
--- NOTE | 2020-01-25 19:24 | EKG REPORT ---
SEVERITY:- ABNORMAL ECG - SINUS RHYTHM NONSPECIFIC T ABNORMALITIES, INFERIOR LEADS : Confirmed by: Jagdish Baumann 25-Jan-2020 19:23:22
== END 2020-01-25 15:40 | disposition home or self-care (01) | DRG 65 ==
LOC: ER 16:15 → EH 19:43 → 3W 22:22
PROVIDERS: ADMIT Emergency Medicine; ATTEND Hospitalist
DX: I63.9 Cerebral infarction, unspecified (principal); G81.94 Hemiplegia, unspecified affecting left nondominant side; E03.9 Hypothyroidism, unspecified; D64.9 Anemia, unspecified; F14.10 Cocaine abuse, uncomplicated; F12.10 Cannabis abuse, uncomplicated; G43.909 Migraine, unspecified, not intractable, without status migrainosus; F32.9 Major depressive disorder, single episode, unspecified; F17.210 Nicotine dependence, cigarettes, uncomplicated
CPT/HCPCS: 36415; 70450; 70551; 71045; 80048; 80053; 80061; 80307; 80349; 80353; 82550; 83735; 84443; 84481; 84484; 85025; 85027; 85610; 85730; 93005; 93010; 93880; 99285; G0480; J1644; J2060; J2270; J3490

== ENCOUNTER 2020-03-24 21:28 | Emergency (ER) | payer SELFPAY ==
[2020-03-24] MEDS ORDERED: HYDROCODONE/ACETAMINOPHEN 5-325 MG (6 TAB/ER DISP) PO PRN (22:10)
[2020-03-24] MEDS ORDERED: SULFAMETHOXAZOLE/TRIMETHOPRIM 800-160 MG TABLET PO ONE (22:10)
[2020-03-24] MEDS ORDERED: DIPHENHYDRAMINE HCL 50 MG CAPSULE PO ONE (22:10)
--- NOTE | 2020-03-24 22:16 | ER Document Report ---
ED General - General Chief Complaint: Skin Sore(s) Stated Complaint: SORES ALL OVER BODY Notes: Patient is a 44-year-old white female with a recent history of CVA who was here in the hospital who presents today to the emergency department with chief complaint of multiple skin lesions. She states it began about 3 weeks ago on the right lower extremity. 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 She states new lesions continue to appear. She states the most recent lesion is on the dorsal left hand at the proximal fifth digit. She states there is an area of redness expanding from the site up the arm to about the wrist. This was concerning to her so she came for evaluation. She states been using peroxide and Betadine at home without any improvement. Denies any fever, chills or night sweats. Denies any recent travel or known contacts. Denies any submersion in any bodies of water. TRAVEL OUTSIDE OF THE [place] IN LAST 30 DAYS: No - Related Data Allergies/Adverse Reactions: Penicillins Allergy (Mild, Verified 12/20/19 13:37) sulfamethoxazole [From Bactrim] Allergy (Verified 12/20/19 13:37) trimethoprim [From Bactrim] Allergy (Verified 12/20/19 13:37) Past Medical History - Social History Smoking Status: Unknown if Ever Smoked Family History: CVA, DM, Hypertension, Thyroid Disfunction - Past Medical History Cardiac Medical History: Denies: Hx Atrial Fibrillation, Hx Coronary Artery Disease, Hx DVT, Hx Heart Attack, Hx Hypercholesterolemia, Hx Hypertension, Hx Peripheral Vascular Disease, Hx Pulmonary Embolism Pulmonary Medical History: Reports: Hx Bronchitis Denies: Hx Asthma, Hx COPD, Hx Pneumonia Neurological Medical History: Reports: Hx Migraine. Denies: Hx Seizures Endocrine Medical History: Reports: Hx Hypothyroidism. Denies: Hx Diabetes Mellitus Type 1, Hx Diabetes Mellitus Type 2, Hx Hyperthyroidism Renal/ Medical History: Denies: Hx Peritoneal Dialysis GI Medical History: Denies: Hx Cirrhosis, Hx Crohn's Disease, Hx Hepatitis, Hx Ulcerative Colitis Musculoskeletal Medical History: Denies Hx Arthritis, Denies Hx Fibromyalgia Skin Medical History: Denies Hx Eczema, Denies Hx Psoriasis Psychiatric Medical History: Reports: Hx Depression Infectious Medical History: Denies: Hx Hepatitis Past Surgical History: Reports: Hx Abdominal Surgery - hernia, Hx Cardiac Catheterization - Negative for coronary artery disease, Hx Section - X 2, Hx Gynecologic Surgery - LEEP, Hx Herniorrhaphy - Umbilical hernia repair x 2, Hx Umbilical Hernia - x2, Other - LEEP procedure - Immunizations Immunizations up to date: No Hx Diphtheria, Pertussis, Tetanus Vaccination: - unk Hx Pneumococcal Vaccination: 08/01/00 Review of Systems - Review of Systems Constitutional: denies: Fever EENT: denies: Throat pain Cardiovascular: denies: Chest pain Respiratory: denies: Short of breath Gastrointestinal: denies: Diarrhea Genitourinary: denies: Pain Female Genitourinary: denies: Vaginal discharge Musculoskeletal: denies: Joint pain Skin: Lesions Hematologic/Lymphatic: denies: Easy bruising Neurological/Psychological: denies: Headaches Physical Exam - General General appearance: Appears well, Alert In distress: None - Respiratory Respiratory status: No respiratory distress Chest status: Nontender Breath sounds: Normal Chest palpation: Normal - Cardiovascular Rhythm: Regular Heart sounds: Normal auscultation - Neurological Neuro grossly intact: Yes Cognition: Normal Orientation: AAOx4 - Psychological Associated symptoms: Normal affect, Normal mood - Skin Skin Color: Other - Multiple lesions that are crusted scabbed with minimal surrounding erythema noted diffusely of the upper and lower extremities. There is an area of ulceration to the left fifth digit dorsal the proximal digit area with expanding cellulitis and proximal streaking to about the wrist. Area is tender to palpation. No evidence of fluctuance in any of the sites. Course - Re-evaluation Re-evalutation: 03/24/20 22:15 Patient with multiple areas consistent with a MRSA cellulitis. She has been using peroxide and Betadine, killing good cells. Low suspicion for any vibrio or necrotizing fasciitis. Suspect complicated MRSA infection secondary to the patient's poking and picking. She denies any drug or alcohol abuse. She reports a history of allergy to Bactrim but states that it just makes her itchy. She is never had a rash, difficulty breathing or tongue or throat swelling from this. She is never had an anaphylactic reaction. She will take Benadryl per label instructions as needed for any itching that may occur. She was started on Bactrim tonight. Given a short course of [place] for pain. Counseled her regarding the extreme importance of wound recheck in 48 hours and that she should return here or any ER immediately with any new, persistent or worsening symptoms. She verbalized understood and agreed. Discharge - Discharge Clinical Impression: MRSA cellulitis Condition: Stable Disposition: HOME, SELF-CARE Instructions: Trimethoprim-Sulfa ([facility]), MRSA Cellulitis ([facility]) Additional Instructions: Follow-up with your regular doctor in 2 to 3 days for reevaluation. Return here or any ER immediately with any new, persistent or worsening symptoms. Prescriptions: Sulfamethoxazole/Trimethoprim [Bactrim Ds Tablet] 1 each PO BID #19 tablet Referrals: [facility] [NO LOCAL MD] - Follow up as needed
== END 2020-03-24 22:27 | disposition home or self-care (01) ==
LOC: ER 21:28
DX: L03.114 Cellulitis of left upper limb (principal); B95.62 Methicillin resistant Staphylococcus aureus infection as the cause of diseases classified elsewhere; Z88.0 Allergy status to penicillin; Z88.1 Allergy status to other antibiotic agents
CPT/HCPCS: 99283

== ENCOUNTER 2020-05-27 11:00 | Inpatient (IN) | payer SELFPAY ==
[2020-05-27] MEDS ORDERED: NORMAL SALINE 1000 ML 1,000 ML IV ONE ×2 (11:38→16:02)
[2020-05-27] MEDS ORDERED: ONDANSETRON HCL INJ/PF 4 MG/2 ML SDV IV ONE (11:38)
[2020-05-27] MEDS ORDERED: KETOROLAC TROMETHAMINE INJ/PF 30 MG/1 ML SDV IV ONE ×2 (11:39→21:30)
--- NOTE | 2020-05-27 11:40 | ER Document Report ---
ED Medical Screen (RME) - General Chief Complaint: Nausea/Vomiting/Diarrhea Stated Complaint: ABDOMINAL PAIN Time Seen by Provider: 05/27/20 11:33 TRAVEL OUTSIDE OF THE [place] IN LAST 30 DAYS: No - HPI Notes: 05/27/20 11:38 44-year-old female history of a minor CVA and hypothyroidism presents emergency room today with complaints of abdominal pain with nausea vomiting that started 3 days ago but became progressively worse this morning. She did come via EMS. Patient states her last bowel movement was this morning and it was watery stool. She has not tried any [id number] medications for her symptoms. Denies any chest pain or shortness of breath. Patient was given IV fluids and 4 mg of Zofran via EMS. Reports pain is 4 out of 5, constant. Last menstrual cycle was May 20 2020. Reports she still does have her gallbladder as well as her appendix I have greeted and performed a rapid initial assessment of this patient. A comprehensive ED assessment and evaluation of the patient, analysis of test results and completion of the medical decision making process will be conducted by additional ED providers. PHYSICAL EXAMINATION: GENERAL: Well-appearing, well-nourished and in no acute distress. CV: s1, s2 regular LUNGS: No respiratory distress abd: tenderness in all quadrants, no cva tenderness appreciated Musculoskeletal: Normal range of motion NEUROLOGICAL: Normal speech, normal gait. SKIN: Warm, Dry, normal turgor, no rashes or lesions noted. 05/27/20 11:39 - Related Data Allergies/Adverse Reactions: Penicillins Allergy (Mild, Verified 03/24/20 22:14) sulfamethoxazole [From Bactrim] Allergy (Verified 03/24/20 22:14) trimethoprim [From Bactrim] Allergy (Verified 03/24/20 22:14) Past Medical History - Social History Frequency of alcohol use: None Drug Abuse: None Family history: DM, Thyroid Disfunction, Other - scoliosis - Past Medical History Cardiac Medical History: Denies: Hx Atrial Fibrillation, Hx Coronary Artery Disease, Hx DVT, Hx Heart Attack, Hx Hypercholesterolemia, Hx Hypertension, Hx Peripheral Vascular Disease, Hx Pulmonary Embolism Pulmonary Medical History: Reports: Hx Bronchitis Denies: Hx Asthma, Hx COPD, Hx Pneumonia Neurological Medical History: Reports: Hx Migraine. Denies: Hx Seizures Endocrine Medical History: Reports: Hx Hypothyroidism. Denies: Hx Diabetes Mellitus Type 1, Hx Diabetes Mellitus Type 2, Hx Hyperthyroidism Renal/ Medical History: Denies: Hx Peritoneal Dialysis GI Medical History: Denies: Hx Cirrhosis, Hx Crohn's Disease, Hx Hepatitis, Hx Ulcerative Colitis Musculoskeltal Medical History: Denies Hx Arthritis, Denies Hx Fibromyalgia Skin Medical History: Denies Hx Eczema, Denies Hx Psoriasis Psychiatric Medical History: Reports: Hx Depression Infectious Medical History: Denies: Hx Hepatitis Past Surgical History: Reports: Hx Abdominal Surgery - hernia, Hx Cardiac Catheterization - Negative for coronary artery disease, Hx Section - X 2, Hx Gynecologic Surgery - LEEP, Hx Herniorrhaphy - Umbilical hernia repair x 2, Hx Umbilical Hernia - x2, Other - LEEP procedure - Immunizations Immunizations up to date: No Hx Diphtheria, Pertussis, Tetanus Vaccination: - unk Physical Exam - Vital signs Vitals: Temp Pulse Resp BP Pulse Ox 97.9 F 80 16 120/72 97 05/27/20 11:23 05/27/20 11:23 05/27/20 11:23 05/27/20 11:23 05/27/20 11:23 Course - Vital Signs Vital signs: Temp Pulse Resp BP Pulse Ox 97.9 F 80 16 120/72 97 05/27/20 11:23 05/27/20 11:23 05/27/20 11:23 05/27/20 11:23 05/27/20 11:23
[2020-05-27 12:15] LABS: ABSOLUTE BASOPHILS # (AUTO) 0.1 10^3/uL (0.0-0.2); ABSOLUTE EOSINOPHILS # (AUTO) 0.2 10^3/uL (0.0-0.6); ABSOLUTE LYMPHOCYTES (AUTO) 2.6 10^3/uL (0.5-4.7); ABSOLUTE MONOCYTES (AUTO) 0.5 10^3/uL (0.1-1.4); ABSOLUTE NEUT (AUTO) 7.3 10^3/uL (1.7-8.2); BASOPHILS % (AUTO) 1.2 % (0-2); EOSINOPHILS % (AUTO) 1.9 % (0-6); HEMOGLOBIN 12.4 g/dL (12.0-15.5); LYMPHOCYTES % (AUTO) 24.6 % (13-45); MEAN CORPUSCULAR HEMOGLOBIN 33.2 pg (27.0-33.4); MEAN CORPUSCULAR HGB CONC 34.5 g/dL (32.0-36.0); MEAN CORPUSCULAR VOLUME 96 fl (80-97); MONOCYTES % (AUTO) 4.4 % (3-13); PLATELET COUNT 292 10^3/uL (150-450); RED BLOOD COUNT 3.74 10^6/uL (3.72-5.28); RED CELL DISTRIBUTION WIDTH 18.3 % (11.5-14.0); SEGMENTED NEUTROPHILS % (AUTO) 67.9 % (42-78); TOTAL CELLS COUNTED % (AUTO) 100 %; WHITE BLOOD COUNT 10.7 10^3/uL (4.0-10.5)
[2020-05-27 12:31] LABS: ALBUMIN 4.4 g/dL (3.5-5.0); ALKALINE PHOSPHATASE 73 U/L (38-126); ANION GAP 10 (5-19); ASPARTATE AMINO TRANSFERASE 37 U/L (14-36); BILIRUBIN,DIRECT 0.2 mg/dL (0.0-0.4); BILIRUBIN,TOTAL 1.1 mg/dL (0.2-1.3); BLOOD UREA NITROGEN 18 mg/dL (7-20); CALCIUM 9.9 mg/dL (8.4-10.2); CARBON DIOXIDE 28 mmol/L (22-30); CHLORIDE 97 mmol/L (98-107); GLUCOSE 106 mg/dL (75-110); POTASSIUM 4.6 mmol/L (3.6-5.0)
--- NOTE | 2020-05-27 12:37 | ER Document Report ---
ED GI/ - General Chief Complaint: Nausea/Vomiting/Diarrhea Stated Complaint: ABDOMINAL PAIN Time Seen by Provider: 05/27/20 11:33 Notes: CHIEF COMPLAINT: Abdominal pain vomiting diarrhea, constipation HPI: 44-year-old female presenting to the emergency department complaining of 5 days of generalized abdominal distress. Began with generalized abdominal pain, some constipation which then progressed to diarrhea after she took laxatives. S tates pain has progressively worsened is now more focal in the right side of the abdomen. Patient had multiple episodes of vomiting yesterday and today. States it hurts in the right lower quadrant with walking and movement. No definite fevers ROS: See HPI - all other systems were reviewed and are otherwise negative Constitutional: no fever Eyes: no drainage, no blurred vision ENT: no runny nose, no sore throat Cardiovascular: no chest pain Resp: no SOB, no cough GI: + vomiting, no diarrhea, + abdominal pain : no dysuria Integumentary: no rash Allergy: no hives Musculoskeletal: no extremity pain or swelling Neurological: no numbness/tingling, no weakness MEDICATIONS: I agree with the patient medications as charted by the RN. ALLERGIES: I agree with the allergies as charted by the RN. PAST MEDICAL HISTORY/PAST SURGICAL HISTORY: Reviewed and agree as charted by RN. SOCIAL HISTORY: Reviewed and agree as charted by RN. FAMILY HISTORY: No significant familial comorbid conditions directly related to patient complaint EXAM: Reviewed vital signs as charted by RN. CONSTITUTIONAL: Alert and oriented and responds appropriately to questions. Well-appearing; well-nourished HEAD: Normocephalic; atraumatic EYES: PERRL; Conjunctivae clear, sclerae non-icteric ENT: normal nose; no rhinorrhea; moist mucous membranes; pharynx without lesions noted, no uvula edema or deviation, no tonsillar hypertrophy, phonation normal NECK: Supple without meningismus; non-tender; no cervical lymphadenopathy, no masses CARD: RRR; no murmurs, no clicks, no rubs, no gallops; symmetric distal pulses RESP: Normal chest excursion without splinting or tachypnea; breath sounds clear and equal bilaterally; no wheezes, no rhonchi, no rales, pulse oximetry 98% on room air not hypoxic ABD/GI: Normal bowel sounds; non-distended; soft, there is moderate tenderness with rebound in the right lower quadrant, no guarding; no palpable organomegaly or masses. Increased discomfort of the right lower quadrant with bending at the waist BACK: The back appears normal and is non-tender to palpation, there is no CVA tenderness EXT: Normal ROM in all joints; non-tender to palpation; no cyanosis, no effusi ons, no edema SKIN: Normal color for age and race; warm; dry; good turgor; no acute lesions noted NEURO: Moves all extremities equally; Motor and sensory function intact PSYCH: The patient's mood and manner are appropriate. Grooming and personal hygiene are appropriate. MDM: 44-year-old female with 4 to 5 days of abdominal pain generalized in nature now more focal in the right lower quadrant region. Initial screening labs placed by triage, CT ordered for appendicitis. Will keep patient n.p.o. TRAVEL OUTSIDE OF THE [place] IN LAST 30 DAYS: No - Related Data Allergies/Adverse Reactions: Penicillins Allergy (Mild, Verified 05/27/20 11:48) sulfamethoxazole [From Bactrim] Allergy (Verified 05/27/20 11:48) trimethoprim [From Bactrim] Allergy (Verified 05/27/20 11:48) Past Medical History - Social History Smoking Status: Current Every Day Smoker Frequency of alcohol use: None Drug Abuse: None Family History: CVA, DM, Hypertension, Thyroid Disfunction - Past Medical History Cardiac Medical History: Denies: Hx Atrial Fibrillation, Hx Coronary Artery Disease, Hx DVT, Hx Heart Attack, Hx Hypercholesterolemia, Hx Hypertension, Hx Peripheral Vascular Disease, Hx Pulmonary Embolism Pulmonary Medical History: Reports: Hx Bronchitis Denies: Hx Asthma, Hx COPD, Hx Pneumonia Neurological Medical History: Reports: Hx Migraine. Denies: Hx Seizures Endocrine Medical History: Reports: Hx Hypothyroidism. Denies: Hx Diabetes Mellitus Type 1, Hx Diabetes Mellitus Type 2, Hx Hyperthyroidism Renal/ Medical History: Denies: Hx Peritoneal Dialysis GI Medical History: Denies: Hx Cirrhosis, Hx Crohn's Disease, Hx Hepatitis, Hx Ulcerative Colitis Musculoskeletal Medical History: Denies Hx Arthritis, Denies Hx Fibromyalgia Skin Medical History: Denies Hx Eczema, Denies Hx Psoriasis Psychiatric Medical History: Reports: Hx Depression Infectious Medical History: Denies: Hx Hepatitis Past Surgical History: Reports: Hx Abdominal Surgery - hernia, Hx Cardiac Catheterization - Negative for coronary artery disease, Hx Section - X 2, Hx Gynecologic Surgery - LEEP, Hx Herniorrhaphy - Umbilical hernia repair x 2, Hx Umbilical Hernia - x2, Other - LEEP procedure - Immunizations Immunizations up to date: No Hx Diphtheria, Pertussis, Tetanus Vaccination: - unk Hx Pneumococcal Vaccination: 08/01/00 Physical Exam - Vital signs Vitals: Temp Pulse Resp BP Pulse Ox 97.9 F 80 16 120/72 97 05/27/20 11:23 05/27/20 11:23 05/27/20 11:23 05/27/20 11:23 05/27/20 11:23 Course - Re-evaluation Re-evalutation: 05/27/20 15:50 Patient is noted to have a small bowel obstruction with a transition point in the right lower quadrant normal appendix. Small amount of ascites, cholelithiasis. I returned to call Dr. Rapp to discuss awaiting callback 05/27/20 16:01 Patient does report history of umbilical hernia surgery x2 in [place] possibly 10 or 12 years ago she is not sure. I spoke with Dr. Rapp about the patient he will come down to see the patient - Vital Signs Vital signs: Temp Pulse Resp BP Pulse Ox 97.9 F 80 16 120/72 97 05/27/20 11:23 05/27/20 11:23 05/27/20 11:23 05/27/20 11:23 05/27/20 11:23 - Laboratory Result Diagrams: 05/27/20 12:05 05/27/20 12:05 Laboratory results interpreted by me: 05/27/20 05/27/20 12:05 12:05 WBC 10.7 H RDW 18.3 H Sodium 134.6 L Chloride 97 L Creatinine 1.30 H Est GFR ( Amer) 54 L Est GFR (MDRD) Non-Af 44 L AST 37 H Discharge - Discharge Clinical Impression: SBO (small bowel obstruction) Condition: Stable Disposition: ADMITTED INPATIENT Admitting Provider: Surgicalist - Dr. Rapp Unit Admitted: Medical Floor
[2020-05-27] MEDS ORDERED: LIDOCAINE 2% VISCOUS SOLN 15 ML UDCUP PO ONE (13:30)
[2020-05-27] MEDS ORDERED: MAG HYDROX/AL HYDROX/SIMETH SUSP 30 ML UDCUP PO ONE (13:30)
[2020-05-27] MEDS ORDERED: METRONIDAZOLE RTU 500 MG/NS 100 ML IV ONE (15:06)
[2020-05-27] MEDS ORDERED: LEVOFLOXACIN 750 MG/D5W RTU 750 MG/150 ML RTUPB IV ONE (15:06)
[2020-05-27] MEDS ORDERED: MORPHINE SULFATE 10 MG/ML INJ IV ONE (15:12)
--- NOTE | 2020-05-27 15:45 | RADIOLOGY REPORT (SQ) ---
EXAM DESCRIPTION: CT ABD/PELVIS WITH IV ORAL IMAGES COMPLETED DATE/TIME: 05/27/2020 2:06 pm REASON FOR STUDY: sudden onset abd pain with n/v, abd pain. Diffuse abdominal pain. History of her estefania repair. COMPARISON: Abdomen KUB, 07/12/2019 TECHNIQUE: CT scan of the abdomen and pelvis performed using helical scanning technique with dynamic intravenous contrast injection. No oral contrast. Images reviewed with lung, soft tissue, and bone windows. Reconstructed coronal and sagittal MPR images reviewed. Delayed images for evaluation of the urinary system also acquired. All images stored on PACS. All CT scanners at this facility use dose modulation, iterative reconstruction, and/or weight based d osing when appropriate to reduce radiation dose to as low as reasonably achievable (ALARA). [facility]: Dose Right [facility]: CareDose [facility]: Dose Right [facility]: Teradose 4D [facility]: MindMixer CONTRAST TYPE AND DOSE: contrast/concentration: Isovue 350.00 mmol/ml; Total Contrast Delivered: 73. 0 ml; Total Saline Delivered: 66.0 ml RENAL FUNCTION: GFR > 60. RADIATION DOSE: CT Rad equipment meets quality standard of care and radiation dose reduction techniq ues were employed. CTDIvol: 5.4 - 7.3 mGy. DLP: 702 mGy-cm.. LIMITATIONS: None. FINDINGS: LOWER CHEST: No significant findings. No nodules or infiltrates. LIVER: Normal size. No masses. No dilated ducts. SPLEEN: Normal size. No focal lesions. PANCREAS: No masses. No significant calcifications. No adjacent inflammation or peripancreatic fluid collections. Pancreatic duct not dilated. GALLBLADDER: The gallbladder is contracted. Multiple calcified gallstones are noted within the gallb ladder lumen. No gallbladder wall thickening or pericholecystic fluid. ADRENAL GLANDS: No significant masses or asymmetry. RIGHT KIDNEY AND URETER: No solid masses. No significant calcifications. No hydronephrosis or hyd roureter. LEFT KIDNEY AND URETER: No solid masses. No significant calcifications. No hydronephrosis or hydr oureter. AORTA AND VESSELS: No aneurysm. No dissection. Renal arteries, SMA, celiac without stenosis. RETROPERITONEUM: No retroperitoneal adenopathy, hemorrhage or masses. BOWEL AND PERITONEAL CAVITY: There is a small bowel obstruction with dilated proximal small bowel loo ps, transition point in the right lower quadrant abdomen, and decompressed distal small bowel loops. The colon is relatively decompressed. Small amount of ascites in the abdomen and pelvis. No pneumo peritoneum. No evidence of pneumatosis intestinalis. APPENDIX: Normal. PELVIS: Uterus and ovaries have normal size. No adnexal mass. Urinary bladder has normal contour. No pelvic adenopathy or mass. ABDOMINAL WALL: No masses. No hernias. BONES: Rotary scoliotic curvature of the thoracolumbar spine. No suspicious bone lesions. OTHER: No other significant finding. IMPRESSION: 1. Small bowel obstruction with transition point in the right lower abdomen. 2. Small amount of ascites in the abdomen and pelvis. 3. Cholelithiasis. No CT evidence of acute cholecystitis. COMMENT: Findings discussed with Dr. Varela on 05/27/2020 at 1538 hours Eastern. TECHNICAL DOCUMENTATION: JOB ID: [id number] Quality ID # [id number]: Final reports with documentation of one or more dose reduction techniques (e.g., Au tomated exposure control, adjustment of the mA and/or kV according to patient size, use of iterative reconstruction technique) 2010 [employer]- All Rights Reserved Reading location - IP/workstation name: [email or web address]
--- NOTE | 2020-05-27 16:45 | PDOC H&P ---
History of Present Illness Patient complains of: Abdominal pain nausea and vomiting, diarrhea History of Present Illness: WILLOW DOMINGO is a 44 year old female Presents to the emergency department via ground rescue complaining of a several day history of progressive abdominal pain, repetitive nausea and vomiting, and loose stools yesterday and today. Patient denies history of trauma, previous episodes. In the emergency department she was found to have a tender abdomen, and a CT scan of the abdomen pelvis with oral and IV contrast demonstrated findings consistent with a small bowel obstruction. Surgery was consulted and patient was advised admission. Covid status pending. Past Medical History Past Medical History: COPD, smoking abuse, hypothyroidism with myxedema, cutaneous skin lesions Cardiac Medical History: Denies: Atrial Fibrillation, Coronary Artery Disease, DVT, Myocardial Infarction, Hyperlipidema, Hypertension, Peripheral Vascular Disease, Pulmonary Embolism Pulmonary Medical History: Reports: Bronchitis Denies: Asthma, Chronic Obstructive Pulmonary Disease (COPD), Pneumonia Neurological Medical History: Reports: Migraine Denies: Seizures Endocrine Medical History: Reports: Hypothyroidism Denies: Diabetes Mellitus Type 1, Diabetes Mellitus Type 2, Hyperthyroidism GI Medical History: Denies: Cirrhosis, Crohn's Disease, Hepatitis, Ulcerative Colitis Musculoskeltal Medical History: Denies: Arthritis, Fibromyalgia Skin Medical History: Denies: Eczema, Psoriasis Psychiatric Medical History: Reports: Depression Hematology: Reports: Anemia Denies: Bleeding Tendencies Past Surgical History Past Surgical History: Patient has had 2 previous abdominal wall repairs, at the umbilicus, with mesh, [place] Past Surgical History: Reports: Cardiac Catheterization - Negative for coronary artery disease, Section - X 2, Herniorrhaphy - Umbilical hernia repair x 2, Other - LEEP procedure Social History Information Source: Patient Smoking Status: Current Every Day Smoker Frequency of Alcohol Use: Rare Hx Recreational Drug Use: No Drugs: None Hx Prescription Drug Abuse: No Family History Family History: None, CVA, DM, Hypertension, Thyroid Disfunction Parental Family History Reviewed: No Children Family History Reviewed: No Sibling(s) Family History Reviewed.: No Medication/Allergy Home Medications: Levothyroxine Sodium 175 mcg PO Q6AM 12/20/19 Nicotine [Nicoderm 21 mg/24 Hr Transderm Patch] 1 each TD DAILYP PRN patch.td24 01/25/20 Sulfamethoxazole/Trimethoprim [Bactrim Ds Tablet] 1 each PO BID #19 tablet 0 03/24/20 Allergies/Adverse Reactions: Penicillins Allergy (Mild, Verified 05/27/20 11:48) sulfamethoxazole [From Bactrim] Allergy (Verified 05/27/20 11:48) trimethoprim [From Bactrim] Allergy (Verified 05/27/20 11:48) Review of Systems Constitutional: PRESENT: as per HPI Eyes: ABSENT: visual disturbances Ears: ABSENT: hearing changes Cardiovascular: PRESENT: as per HPI Gastrointestinal: PRESENT: as per HPI Genitourinary: ABSENT: dysuria, hematuria Musculoskeletal: ABSENT: joint swelling Physical Exam Vital Signs: Temp Pulse Resp BP Pulse Ox 97.9 F 80 16 120/72 97 05/27/20 11:23 05/27/20 11:23 05/27/20 11:23 05/27/20 11:23 05/27/20 11:23 Intake & Output 05/26/20 05/27/20 05/28/20 06:59 06:59 06:59 Intake Total 1250 Balance 1250 Weight 64.41 kg General appearance: PRESENT: mild distress Head exam: PRESENT: normocephalic Eye exam: PRESENT: EOMI Mouth exam: PRESENT: dry mucosa Teeth exam: PRESENT: poor dentation Neck exam: PRESENT: full ROM Respiratory exam: PRESENT: crackles Cardiovascular exam: PRESENT: RRR Pulses: PRESENT: normal carotid pulses, normal radial pulses, normal femoral pulses GI/Abdominal exam: PRESENT: other - Abdomen is slightly distended, doughy, soft, not rigid, but diffusely tender. Rectal exam: PRESENT: deferred Extremities exam: PRESENT: +1 edema Musculoskeletal exam: PRESENT: full ROM Neurological exam: PRESENT: oriented to person, oriented to place, oriented to time, oriented to situation Psychiatric exam: PRESENT: anxious Skin exam: PRESENT: dry Results Laboratory Results: 05/27/20 12:05 05/27/20 12:05 05/27/20 05/27/20 12:05 12:05 WBC 10.7 H RBC 3.74 Hgb 12.4 Hct 36.0 MCV 96 MCH 33.2 MCHC 34.5 RDW 18.3 H Plt Count 292 Seg Neutrophils % 67.9 Sodium 134.6 L Potassium 4.6 Chloride 97 L Carbon Dioxide 28 Anion Gap 10 BUN 18 Creatinine 1.30 H Est GFR ( Amer) 54 L Glucose 106 Calcium 9.9 Total Bilirubin 1.1 AST 37 H Alkaline Phosphatase 73 Total Protein 7.0 Albumin 4.4 Lipase 48.3 Impressions: Abdomen/Pelvis CT 05/27/20 11:37 IMPRESSION: 1. Small bowel obstruction with transition point in the right lower abdomen. 2. Small amount of ascites in the abdomen and pelvis. 3. Cholelithiasis. No CT evidence of acute cholecystitis. Assessment & Plan - Diagnosis (1) SBO (small bowel obstruction) Is this a current diagnosis for this admission?: Yes Plan: Impression: Acute small bowel obstruction likely mid jejunum based on CT scan, without jeancarlos peritoneal signs; dehydration Recommendations: 1. Admit, n.p.o., nasogastric tube decompression; hold intravenous pain medications 2. Rapid Covid test being obtained now; we will also check patient's TSH level 3. I spoke with patient, patient's , patient's sister on speaker phone, and discussed the plan for admission, initial nonoperative management, with very close reassessment. I am concerned patient will require exploratory surgery, and I conveyed this to them. (2) ARF (acute renal failure) Is this a current diagnosis for this admission?: Yes (3) Chronic anemia Is this a current diagnosis for this admission?: Yes (4) Hypothyroidism Qualifiers: Is this a current diagnosis for this admission?: Yes (5) Tobacco use disorder, continuous Is this a current diagnosis for this admission?: Yes - Time Time Spent: 50 to 70 Minutes Critical Time spent with patient: 15-24 minutes Medications reviewed and adjusted accordingly: Yes Anticipated Discharge Disposition: Home with Home Health Anticipated Discharge Timeframe: within 72 hours - Inpatient Certification Based on my medical assessment, after consideration of the patient's comorbidities, presenting symptoms, or acuity I expect that the services needed warrant INPATIENT care.: Yes I certify that my determination is in accordance with my understanding of Medicare's requirements for reasonable and necessary INPATIENT services [42 CFR 412.3e].: Yes Medical Necessity: Need For IV Fluids, Need for IV Antibiotics, Need for Surgery
--- NOTE | 2020-05-27 18:02 | RADIOLOGY REPORT (SQ) ---
EXAM DESCRIPTION: KUB/ABDOMEN (SINGLE VIEW) IMAGES COMPLETED DATE/TIME: 05/27/2020 5:28 pm REASON FOR STUDY: VERIFICATION TUBE PLACEMENT COMPARISON: 07/12/2019 NUMBER OF VIEWS: One view. TECHNIQUE: Supine radiographic image of the abdomen acquired. LIMITATIONS: None. FINDINGS: BOWEL GAS PATTERN: Normal bowel gas pattern. No dilated loops. CALCIFICATIONS: No suspicious calcifications. SOFT TISSUES: No gross mass or suggestion of organomegaly. HARDWARE: Interval placement of nasogastric tube with the tip overlying the proximal body of the sto mach. BONES: Marked scoliosis visualized thoracic and lumbar spine. OTHER: Small opaque densities mid lateral left quadrant of the abdomen may represent residual oral c ontrast from CT examination. IMPRESSION: 1. Status post placement of nasogastric tube with the tip overlying the proximal body o f the stomach. TECHNICAL DOCUMENTATION: JOB ID: [id number] 2010 [employer]- All Rights Reserved Reading location - IP/workstation name: [email or web address]
[2020-05-27] MEDS ORDERED: LEVOTHYROXINE SODIUM INJ/PF 0.1 MG SDV IV ONE (22:00)
[2020-05-28] MEDS: RINGERS SOLUTION,LACTATED 1,000 ML IV PRN ×4 (01:39→19:50)
[2020-05-28] MEDS: LEVOTHYROXINE SODIUM INJ/PF 0.1 MG SDV IV SCH (09:08)
--- NOTE | 2020-05-28 12:02 | RADIOLOGY REPORT (SQ) ---
EXAM DESCRIPTION: KUB/ABDOMEN (SINGLE VIEW) IMAGES COMPLETED DATE/TIME: 05/28/2020 11:48 am REASON FOR STUDY: sbo COMPARISON: 05/27/2020 NUMBER OF VIEWS: One view. TECHNIQUE: Supine radiographic image of the abdomen acquired. LIMITATIONS: None. FINDINGS: BOWEL GAS PATTERN: NG tube remains in place. Persistent small-bowel distention. There is contrast in what appears to be colon. Findings which suggest partial obstruction. CALCIFICATIONS: No suspicious calcifications. SOFT TISSUES: No gross mass or suggestion of organomegaly. HARDWARE: None in the abdomen. BONES: No acute fracture. No worrisome bone lesions. OTHER: No other significant finding. IMPRESSION: Persistent small-bowel distention although there does appear to be contrast in the colon from prior CT. Suspect this represents partial small bowel obstruction. NG tube remains in place. TECHNICAL DOCUMENTATION: JOB ID: [id number] 2010 [employer]- All Rights Reserved Reading location - IP/workstation name: [email or web address]
[2020-05-28] MEDS: KETOROLAC TROMETHAMINE INJ/PF 30 MG/1 ML SDV IV PRN ×2 (16:48→22:55)
--- NOTE | 2020-05-28 19:23 | PDOC PROGRESS REPORT ---
Subjective Progress Note for:: 05/28/20 Subjective:: 44-year-old female with a surgical history of multiple umbilical hernia repairs. She presented with a small bowel obstruction. The patient continues to report abdominal pain and distention. She denies any flatus or bowel movement at this time. She denies any chest pain, shortness of breath, nausea, vomiting, fevers, chills, dizziness, orthostasis, headache. Reason For Visit: SBO (SMALL BOWEL OBSTRUCTION) Physical Exam Vital Signs: Temp Pulse Resp BP Pulse Ox 97.4 F 71 14 148/97 H 96 05/28/20 10:00 05/28/20 08:13 05/28/20 08:13 05/28/20 08:13 05/28/20 08:13 Intake & Output 05/27/20 05/28/20 05/29/20 06:59 06:59 06:59 Intake Total 3400 1000 Output Total 200 Balance 3200 1000 Weight 70.4 kg General appearance: PRESENT: no acute distress, cooperative Head exam: PRESENT: atraumatic, normocephalic Eye exam: PRESENT: EOMI, PERRLA. ABSENT: scleral icterus Mouth exam: PRESENT: moist, neck supple Neck exam: PRESENT: meningismus, tenderness, thyromegaly, tracheal deviation Respiratory exam: PRESENT: unlabored. ABSENT: tachypnea, wheezes Cardiovascular exam: ABSENT: tachycardia GI/Abdominal exam: PRESENT: distended - Mild distention, soft. ABSENT: rebound, rigid, tenderness Rectal exam: PRESENT: deferred Extremities exam: ABSENT: clubbing Musculoskeletal exam: ABSENT: deformity Neurological exam: PRESENT: alert, awake, oriented to person, oriented to place, oriented to time, oriented to situation, CN II-XII grossly intact Psychiatric exam: ABSENT: agitated, anxious, depressed Focused psych exam: ABSENT: delusional Skin exam: ABSENT: cyanosis, erythema, jaundice Results Laboratory Results: 05/27/20 12:05 05/27/20 12:05 Impressions: Abdomen/Pelvis CT 05/27/20 11:37 IMPRESSION: 1. Small bowel obstruction with transition point in the right lower abdomen. 2. Small amount of ascites in the abdomen and pelvis. 3. Cholelithiasis. No CT evidence of acute cholecystitis. KUB X-Ray 05/28/20 11:29 IMPRESSION: Persistent small-bowel distention although there does appear to be contrast in the colon from prior CT. Suspect this represents partial small bowel obstruction. NG tube remains in place. Assessment & Plan - Diagnosis (1) SBO (small bowel obstruction) Is this a current diagnosis for this admission?: Yes - Time Anticipated Discharge Disposition: Home, Self Care Anticipated Discharge Timeframe: Unknown - Plan Summary Plan Summary: 44-year-old female with a small bowel obstruction, seen on CT scan. The patient denies any flatus or bowel movement overnight. Her abdomen is minimally distended. She has no appreciable tenderness. Her NG tube is minimally productive. Her x-ray this morning shows passage of oral contrast into the co melony. I will order an enema for the patient, to facilitate her having a bowel movement. Repeat x-rays tomorrow. Continue with conservative management at this time.
[2020-05-28] MEDS: FAMOTIDINE INJ/PF 20 MG/2 ML SDV IV SCH (22:56)
--- NOTE | 2020-05-28 23:44 | CDI QUERY ---
<MAXIM FENG - Last Filed: 05/28/20 23:44> CDI Query CDI Review: We are seeking further clarification of documentation to reflect the severity of illness of your patient. Per Surgical H&P: SBO (small bowel obstruction) Impression: Acute small bowel obstruction likely mid jejunum based on CT scan, without jeancarlos peritoneal signs; dehydration Based on your medical judgement, can you further clarify in the Progress Notes if the obstruction is: Complete Incomplete Partial Unable to determine Other Thank you for your consideration. ASHLEY Hubbard RN Clinical [employer] Physician Advisor [email or web address] <SHANTEL WILLAMS - Last Filed: 06/02/20 07:50> CDI Query CDI Review: PARTIAL Agree with Query: Yes
[2020-05-29] MEDS: RINGERS SOLUTION,LACTATED 1,000 ML IV PRN ×3 (03:41→17:56)
[2020-05-29 06:08] LABS: ABSOLUTE BASOPHILS # (AUTO) 0.1 10^3/uL (0.0-0.2); ABSOLUTE EOSINOPHILS # (AUTO) 0.1 10^3/uL (0.0-0.6); ABSOLUTE LYMPHOCYTES (AUTO) 1.7 10^3/uL (0.5-4.7); ABSOLUTE MONOCYTES (AUTO) 0.4 10^3/uL (0.1-1.4); ABSOLUTE NEUT (AUTO) 2.4 10^3/uL (1.7-8.2); BASOPHILS % (AUTO) 1.5 % (0-2); MEAN CORPUSCULAR VOLUME 95 fl (80-97); TOTAL CELLS COUNTED % (AUTO) 100 %
[2020-05-29 06:11] LABS: HEMATOCRIT 25.5 % (36.0-47.0); MEAN CORPUSCULAR HEMOGLOBIN 34.4 pg (27.0-33.4); MEAN CORPUSCULAR HGB CONC 36.3 g/dL (32.0-36.0); PLATELET COUNT 188 10^3/uL (150-450); RED BLOOD COUNT 2.69 10^6/uL (3.72-5.28); RED CELL DISTRIBUTION WIDTH 17.6 % (11.5-14.0); SEGMENTED NEUTROPHILS % (AUTO) 52.9 % (42-78); WHITE BLOOD COUNT 4.5 10^3/uL (4.0-10.5)
[2020-05-29 06:12] LABS: EOSINOPHILS % (AUTO) 2.7 % (0-6); MONOCYTES % (AUTO) 7.9 % (3-13)
[2020-05-29 06:13] LABS: HEMOGLOBIN 9.3 g/dL (12.0-15.5)
[2020-05-29 06:26] LABS: ANION GAP 7 (5-19); BLOOD UREA NITROGEN 7 mg/dL (7-20); CALCIUM 8.3 mg/dL (8.4-10.2); CARBON DIOXIDE 25 mmol/L (22-30); CHLORIDE 102 mmol/L (98-107); GLUCOSE 99 mg/dL (75-110); POTASSIUM 3.2 mmol/L (3.6-5.0)
[2020-05-29] MEDS: KETOROLAC TROMETHAMINE INJ/PF 30 MG/1 ML SDV IV PRN ×2 (08:21→17:55)
--- NOTE | 2020-05-29 08:42 | RADIOLOGY REPORT (SQ) ---
EXAM DESCRIPTION: KUB/ABDOMEN (SINGLE VIEW) IMAGES COMPLETED DATE/TIME: 05/29/2020 8:14 am REASON FOR STUDY: sbo COMPARISON: 05/28/2020. NUMBER OF VIEWS: One view. TECHNIQUE: Supine radiographic image of the abdomen acquired. LIMITATIONS: None. FINDINGS: BOWEL GAS PATTERN: Diffuse small bowel dilation, unchanged. Contrast in the colon. CALCIFICATIONS: No suspicious calcifications. SOFT TISSUES: No gross mass or suggestion of organomegaly. HARDWARE: Nasogastric tube, tip in the stomach. BONES: No acute fracture. No worrisome bone lesions. OTHER: No other significant finding. IMPRESSION: DIFFUSE SMALL BOWEL DILATION. NO SIGNIFICANT CHANGE. TECHNICAL DOCUMENTATION: JOB ID: [id number] 2010 [employer]- All Rights Reserved Reading location - IP/workstation name: [email or web address]
[2020-05-29] MEDS: FAMOTIDINE INJ/PF 20 MG/2 ML SDV IV SCH ×2 (09:00→22:32)
[2020-05-29] MEDS: LEVOTHYROXINE SODIUM INJ/PF 0.1 MG SDV IV SCH (09:00)
--- NOTE | 2020-05-29 09:23 | PDOC PROGRESS REPORT ---
Subjective Progress Note for:: 05/29/20 Subjective:: eating min amts still with lower abd pain no flatus Reason For Visit: SBO (SMALL BOWEL OBSTRUCTION) Physical Exam Vital Signs: Temp Pulse Resp BP Pulse Ox 97.7 F 88 18 136/93 H 100 05/29/20 08:27 05/29/20 08:27 05/29/20 08:27 05/29/20 08:27 05/29/20 08:27 Intake & Output 05/28/20 05/29/20 05/30/20 06:59 06:59 06:59 Intake Total 3400 3000 947 Output Total 200 Balance 3200 3000 947 Weight 70.4 kg 70.4 kg General appearance: PRESENT: no acute distress, other - cachetic Head exam: PRESENT: normocephalic Eye exam: PRESENT: EOMI Ear exam: PRESENT: normal external ear exam Mouth exam: PRESENT: moist Neck exam: PRESENT: full ROM Respiratory exam: PRESENT: clear to auscultation tracy Cardiovascular exam: PRESENT: RRR Pulses: PRESENT: normal radial pulses, normal femoral pulses Breast: PRESENT: Normal GI/Abdominal exam: PRESENT: soft Rectal exam: PRESENT: deferred Gentrourinary exam: PRESENT: other Extremities exam: PRESENT: full ROM Musculoskeletal exam: PRESENT: full ROM Neurological exam: PRESENT: alert, awake, oriented to person, oriented to place Psychiatric exam: PRESENT: appropriate affect Skin exam: PRESENT: dry Results Laboratory Results: 05/29/20 05:40 05/29/20 05:40 05/29/20 05/29/20 05:40 05:40 WBC 4.5 RBC 2.69 L Hgb 9.3 L D Hct 25.5 L MCV 95 MCH 34.4 H MCHC 36.3 H RDW 17.6 H Plt Count 188 Seg Neutrophils % 52.9 Sodium 134.0 L Potassium 3.2 L Chloride 102 Carbon Dioxide 25 Anion Gap 7 BUN 7 Creatinine 0.95 Est GFR ( Amer) > 60 Glucose 99 Calcium 8.3 L Impressions: Abdomen/Pelvis CT 05/27/20 11:37 IMPRESSION: 1. Small bowel obstruction with transition point in the right lower abdomen. 2. Small amount of ascites in the abdomen and pelvis. 3. Cholelithiasis. No CT evidence of acute cholecystitis. KUB X-Ray 05/29/20 06:00 IMPRESSION: DIFFUSE SMALL BOWEL DILATION. NO SIGNIFICANT CHANGE. Assessment & Plan - Time Anticipated Discharge Disposition: Home, Self Care Anticipated Discharge Timeframe: unk - Plan Summary Plan Summary: s/p repair of incarcerated rih still no return of bowel funcition eating a reg diet no nausea, vomiting kub today still iwth dilated sb loops will add dulcolax.
[2020-05-29] MEDS ORDERED: BISACODYL 10 MG SUPP.RECT PR ONE (10:30)
[2020-05-29] MEDS ORDERED: PROPOFOL INJ 200 MG/20 ML VIAL IV ONE (11:51)
[2020-05-29] MEDS ORDERED: FENTANYL CITRATE INJ/PF 100 MCG/2 ML AMPUL ONE (11:52)
[2020-05-29] MEDS ORDERED: MIDAZOLAM 2 MG/2 ML INJ ONE (11:52)
[2020-05-29] MEDS ORDERED: DEXAMETHASONE SOD PHOSPHATE INJ 4 MG/1 ML VIAL ONE (11:52)
[2020-05-29] MEDS ORDERED: ONDANSETRON HCL INJ/PF 4 MG/2 ML SDV ONE (11:52)
[2020-05-29] MEDS ORDERED: EPHEDRINE SULFATE INJ 50 MG/1 ML AMPULE ONE (11:52)
[2020-05-29] MEDS ORDERED: SUGAMMADEX SODIUM 200 MG/2 ML SDV IV ONE (11:53)
[2020-05-29] MEDS ORDERED: SUCCINYLCHOLINE CHLORIDE INJ 200 MG/10 ML VIAL ONE (12:32)
[2020-05-29] MEDS ORDERED: ROCURONIUM BROMIDE INJ 50 MG/5 ML VIAL IV ONE (12:32)
[2020-05-29] MEDS ORDERED: PHENYLEPHRINE HCL INJ/PF 10 MG/1 ML SDV ONE (12:32)
[2020-05-29] MEDS ORDERED: CEFAZOLIN 2 GM/D5W RTU 2 GM/50 ML RTUPB IV ONE (12:58)
[2020-05-29] MEDS ORDERED: CLINDAMYCIN 600 MG/D5W RTU 600 MG/50 ML RTUPB IV ONE (13:07)
[2020-05-29] MEDS ORDERED: BUPIVACAINE INJ/PF LIPOSOME/PF 266 MG/20 ML SDV ONE (13:36)
[2020-05-29] MEDS ORDERED: DIPHENHYDRAMINE HCL 50 MG/ML VIAL IV PRN (13:44)
[2020-05-29] MEDS ORDERED: FENTANYL CITRATE INJ/PF 100 MCG/2 ML AMPUL IV PRN ×3 (13:44)
[2020-05-29] MEDS ORDERED: MORPHINE SULFATE 10 MG/ML INJ IV PRN (13:44)
[2020-05-29] MEDS ORDERED: MEPERIDINE HCL/PF INJ 25 MG/1 ML DISP.SYRIN IV PRN (13:44)
[2020-05-29] MEDS ORDERED: PROMETHAZINE HCL INJ 25 MG/1 ML VIAL IV PRN ×2 (13:44)
--- NOTE | 2020-05-29 14:55 | Operative Report ---
Nonrecallable Operative Report DATE OF SURGERY: 05/29/20 PREOPERATIVE DIAGNOSIS: Small bowel obstruction POSTOPERATIVE DIAGNOSIS: Same OPERATION: Diagnostic laparoscopy and lysis of adhesions SURGEON: LINDA PIMENTEL ANESTHESIA: GA TISSUE REMOVED OR ALTERED: None COMPLICATIONS: None ESTIMATED BLOOD LOSS: Minimal INTRAOPERATIVE FINDINGS: See note PROCEDURE: Patient was brought to the operating room awake alert stable condition placed on the operative table supine position induced under general anesthesia and intubated. Varies needle was placed in through Cadena's point and the abdomen was insufflated 6 L of CO2 gas. A 10 mm incision was made in the epigastrium and a 10 mm port placed in the abdominal cavity intra-abdominal visualization revealed no evidence of Veress needle or trocar injury however there was multiple adhesions with loop of small bowel attached attached to the omentum and twisted upon itself to the anterior abdominal wall with a previous umbilical hernia was performed with mesh. We made a suprapubic [address] another port to work in that direction . Two 5 mm ports were placed under direct vision in the right abdominal wall. We took the omental adhesions down with the harmonic with the LigaSure device. Once we did this we were able to separate the loops of small bowel from the omentum and untwisted. We then turned attention to the ligament of Treitz and ran the small bowel from the ligament of Treitz to the terminal ileum and identified the cecum there is no further adhesive bands. Placed the patient in Trendelenburg position to look in the pelvis there was some small amount of bloody ascitic fluid in the pelvis which was suctioned dry. Both the right and left ovary were examined the left ovary had a number of small functional cyst on it but otherwise was normal as well as the right ovary. The sigmoid and descending colon also appeared to be normal decompressed. Once this was accomplished we checked for hemostasis was intact and we reduce the pneumoperitoneum we closed the 2,10 mm fascial defect with 0 Vicryl and closed a ll 4 skin incisions with intracuticular 4-0 Biosyn Steri-Strips completed the procedure estimated blood loss was less than 10 cc sponge needle counts correct x2 the patient was awakened in the operating room extubated transferred recovery in stable condition
[2020-05-30] MEDS: KETOROLAC TROMETHAMINE INJ/PF 30 MG/1 ML SDV IV PRN ×4 (01:13→22:00)
[2020-05-30] MEDS: RINGERS SOLUTION,LACTATED 1,000 ML IV PRN (04:05)
[2020-05-30] MEDS: LEVOTHYROXINE SODIUM INJ/PF 0.1 MG SDV IV SCH (09:02)
[2020-05-30] MEDS: FAMOTIDINE INJ/PF 20 MG/2 ML SDV IV SCH ×2 (09:02→22:01)
--- NOTE | 2020-05-30 16:18 | PDOC PROGRESS REPORT ---
Subjective Progress Note for:: 05/30/20 Reason For Visit: SBO (SMALL BOWEL OBSTRUCTION) Physical Exam Vital Signs: Temp Pulse Resp BP Pulse Ox 97.3 F 72 14 145/92 H 97 05/30/20 10:00 05/30/20 07:40 05/30/20 07:40 05/30/20 07:40 05/30/20 07:40 Intake & Output 05/29/20 05/30/20 05/31/20 06:59 06:59 06:59 Intake Total 3000 4447 Output Total 225 Balance 3000 4222 Weight 70.4 kg 68.7 kg 68.7 kg Results Laboratory Results: 05/29/20 05:40 05/29/20 05:40 Impressions: Abdomen/Pelvis CT 05/27/20 11:37 IMPRESSION: 1. Small bowel obstruction with transition point in the right lower abdomen. 2. Small amount of ascites in the abdomen and pelvis. 3. Cholelithiasis. No CT evidence of acute cholecystitis. KUB X-Ray 05/29/20 06:00 IMPRESSION: DIFFUSE SMALL BOWEL DILATION. NO SIGNIFICANT CHANGE. Assessment & Plan - Diagnosis (1) SBO (small bowel obstruction) Is this a current diagnosis for this admission?: Yes - Time Anticipated Discharge Disposition: Home, Self Care Anticipated Discharge Timeframe: within 48 hours - Plan Summary Plan Summary: 44-year-old female status post exploratory laparoscopy for a bowel obstruction. She is feeling better this morning. She is passing small amounts of flatus. I will remove her NG tube, and allow her to have ice chips and popsicles. Awaiting return of bowel function. Continue to monitor closely.
[2020-05-31] MEDS: RINGERS SOLUTION,LACTATED 1,000 ML IV PRN (00:56)
[2020-05-31] MEDS: KETOROLAC TROMETHAMINE INJ/PF 30 MG/1 ML SDV IV PRN ×3 (04:03→17:20)
[2020-05-31] MEDS: FAMOTIDINE INJ/PF 20 MG/2 ML SDV IV SCH (09:36)
[2020-05-31] MEDS: LEVOTHYROXINE SODIUM INJ/PF 0.1 MG SDV IV SCH (09:36)
--- NOTE | 2020-05-31 09:56 | PDOC PROGRESS REPORT ---
Subjective Progress Note for:: 05/31/20 Subjective:: feels ok, less bloated Reason For Visit: SBO (SMALL BOWEL OBSTRUCTION) Physical Exam Vital Signs: Temp Pulse Resp BP Pulse Ox 97.9 F 69 18 129/72 H 97 05/31/20 00:04 05/31/20 00:04 05/31/20 00:04 05/31/20 00:04 05/31/20 00:04 Intake & Output 05/30/20 05/31/20 06/01/20 06:59 06:59 05:59 Intake Total 4447 1000 Output Total 228 500 Balance 4219 500 Weight 68.7 kg 67.9 kg General appearance: PRESENT: no acute distress Head exam: PRESENT: normocephalic Eye exam: PRESENT: EOMI Mouth exam: PRESENT: moist Neck exam: PRESENT: full ROM Respiratory exam: PRESENT: clear to auscultation tracy Cardiovascular exam: PRESENT: RRR Pulses: PRESENT: normal radial pulses, normal femoral pulses Vascular exam: PRESENT: normal capillary refill GI/Abdominal exam: PRESENT: soft Rectal exam: PRESENT: deferred Extremities exam: PRESENT: full ROM Neurological exam: PRESENT: alert, awake, oriented to person, oriented to place Psychiatric exam: PRESENT: appropriate affect Skin exam: PRESENT: dry Results Laboratory Results: 05/29/20 05:40 05/29/20 05:40 Impressions: Abdomen/Pelvis CT 05/27/20 11:37 IMPRESSION: 1. Small bowel obstruction with transition point in the right lower abdomen. 2. Small amount of ascites in the abdomen and pelvis. 3. Cholelithiasis. No CT evidence of acute cholecystitis. KUB X-Ray 05/29/20 06:00 IMPRESSION: DIFFUSE SMALL BOWEL DILATION. NO SIGNIFICANT CHANGE. Assessment & Plan - Time Anticipated Discharge Disposition: Home, Self Care Anticipated Discharge Timeframe: within 48 hours - Plan Summary Plan Summary: doing better less bloated, passing flatus will advance diet to full liquids
[2020-05-31] MEDS ORDERED: RINGERS SOLUTION,LACTATED 1,000 ML IV PRN (09:57)
[2020-06-01] MEDS: KETOROLAC TROMETHAMINE INJ/PF 30 MG/1 ML SDV IV PRN ×2 (00:45→10:07)
[2020-06-01] MEDS: FAMOTIDINE INJ/PF 20 MG/2 ML SDV IV SCH ×2 (00:47→10:08)
--- NOTE | 2020-06-01 09:14 | PDOC DISCHARGE SUMMARY ---
General - Admit/Disc Date/PCP Admission Date/Primary Care Provider: 05/27/20 16:53 Discharge Date: 06/01/20 - Discharge Diagnosis Final Diagnosis: small bowel obstruction - Assessment Summary: Patient was admitted with increased abdominal bloating and pain diagnosis of small bowel section was made in the emergency room the patient was admitted with NG tube. She did not improve over the course of 2 to 3 days with noninvasive treatment therefore she was taken to the operating room for diagnostic laparoscopy with lysis of adhesions. Subsequent to that her NG tube was able to be removed on postop day 2 and she was started on clear liquid diet she started having return of bowel function over the course of the next 1 to 2 days and now is tolerating a diet. She is ready for discharge home today. She will be discharged home on Vicodin for pain in addition to that she is going to be given a 30-day prescription for Synthroid 0.1 mg/day she normally takes at home and feels it with a primary physician however she has run out. I will give her 30-day supply and she is informed that she needs to follow-up with her primary doctor for any more. She was noted to have a high TSH in the hospital 145. She is asymptomatic. She will be given an appointment in surgical clinic in 7 to 10 days - Additional Information Resuscitation Status: Full Code Discharge Diet: As Tolerated Discharge Activity: Activity As Tolerated Prescriptions: Hydrocodone/Acetaminophen [[place] 10-325 mg Tablet] 1 tab PO Q6HP PRN #15 tablet PRN Reason: Levothyroxine Sodium [Synthroid 0.1 mg Tablet] 0.1 mg PO DAILY #30 tablet Home Medications: Hydrocodone/Acetaminophen [[place] 10-325 mg Tablet] 1 tab PO Q6HP PRN #15 tablet 06/01/20 Levothyroxine Sodium [Synthroid 0.1 mg Tablet] 0.1 mg PO DAILY #30 tablet 06/01/20 History of Present Illiness History of Present Illness: WILLOW DOMINGO is a 44 year old female Physical Exam Vital Signs: Temp Pulse Resp BP Pulse Ox 98.1 F 76 18 134/79 H 98 05/31/20 23:07 05/31/20 23:07 05/31/20 23:07 05/31/20 23:07 05/31/20 23:07 Intake & Output 05/31/20 06/01/20 06/02/20 07:59 06:59 06:59 Intake Total Output Total Balance Weight Results Laboratory Results: WBC 4.5 10^3/uL (4.0-10.5) 05/29/20 05:40 RBC 2.69 10^6/uL (3.72-5.28) L 05/29/20 05:40 Hgb 9.3 g/dL (12.0-15.5) L D 05/29/20 05:40 Hct 25.5 % (36.0-47.0) L 05/29/20 05:40 MCV 95 fl (80-97) 05/29/20 05:40 MCH 34.4 pg (27.0-33.4) H 05/29/20 05:40 MCHC 36.3 g/dL (32.0-36.0) H 05/29/20 05:40 RDW 17.6 % (11.5-14.0) H 05/29/20 05:40 Plt Count 188 10^3/uL (150-450) 05/29/20 05:40 Lymph % (Auto) 35.0 % (13-45) 05/29/20 05:40 [place] % (Auto) 7.9 % (3-13) 05/29/20 05:40 Eos % (Auto) 2.7 % (0-6) 05/29/20 05:40 Baso % (Auto) 1.5 % (0-2) 05/29/20 05:40 Absolute Neuts (auto) 2.4 10^3/uL (1.7-8.2) 05/29/20 05:40 Absolute Lymphs (auto) 1.7 10^3/uL (0.5-4.7) 05/29/20 05:40 Absolute Monos (auto) 0.4 10^3/uL (0.1-1.4) 05/29/20 05:40 Absolute Eos (auto) 0.1 10^3/uL (0.0-0.6) 05/29/20 05:40 Absolute Basos (auto) 0.1 10^3/uL (0.0-0.2) 05/29/20 05:40 Seg Neutrophils % 52.9 % (42-78) 05/29/20 05:40 Sodium 134.0 mmol/L (137-145) L 05/29/20 05:40 Potassium 3.2 mmol/L (3.6-5.0) L 05/29/20 05:40 Chloride 102 mmol/L (98-107) 05/29/20 05:40 Carbon Dioxide 25 mmol/L (22-30) 05/29/20 05:40 Anion Gap 7 (5-19) 05/29/20 05:40 BUN 7 mg/dL (7-20) 05/29/20 05:40 Creatinine 0.95 mg/dL (0.52-1.25) 05/29/20 05:40 Est GFR ( Amer) > 60 (>60) 05/29/20 05:40 Est GFR (MDRD) Non-Af > 60 (>60) 05/29/20 05:40 Glucose 99 mg/dL (75-110) 05/29/20 05:40 Calcium 8.3 mg/dL (8.4-10.2) L 05/29/20 05:40 Total Bilirubin 1.1 mg/dL (0.2-1.3) 05/27/20 12:05 Direct Bilirubin 0.2 mg/dL (0.0-0.4) 05/27/20 12:05 Neonat Total Bilirubin Not Reportable 05/27/20 12:05 Neonat Direct Bilirubin Not Reportable 05/27/20 12:05 Neonat Indirect Bili Not Reportable 05/27/20 12:05 AST 37 U/L (14-36) H 05/27/20 12:05 ALT 24 U/L (<35) 05/27/20 12:05 Alkaline Phosphatase 73 U/L (38-126) 05/27/20 12:05 Total Protein 7.0 g/dL (6.3-8.2) 05/27/20 12:05 Albumin 4.4 g/dL (3.5-5.0) 05/27/20 12:05 Lipase 48.3 U/L (23-300) 05/27/20 12:05 TSH 145.00 uIU/mL (0.47-4.68) H 05/27/20 12:05 COVID-19 Source Cancelled 05/27/20 16:44 COVID-19 ([facility]HAY) Cancelled 05/27/20 16:44 SARS-CoV-2 (PCR) NEGATIVE (NEGATIVE) 05/27/20 16:44 Impressions: KUB X-Ray 05/27/20 00:00 IMPRESSION: 1. Status post placement of nasogastric tube with the tip overlying the proximal body of the stomach. Abdomen/Pelvis CT 05/27/20 11:37 IMPRESSION: 1. Small bowel obstruction with transition point in the right lower abdomen. 2. Small amount of ascites in the abdomen and pelvis. 3. Cholelithiasis. No CT evidence of acute cholecystitis. KUB X-Ray 05/28/20 11:29 IMPRESSION: Persistent small-bowel distention although there does appear to be contrast in the colon from prior CT. Suspect this represents partial small bowel obstruction. NG tube remains in place. KUB X-Ray 05/29/20 06:00 IMPRESSION: DIFFUSE SMALL BOWEL DILATION. NO SIGNIFICANT CHANGE.
[2020-06-01] MEDS: LEVOTHYROXINE SODIUM INJ/PF 0.1 MG SDV IV SCH (10:10)
[2020-06-01 11:38] VITALS: BP 140/78
== END 2020-06-01 12:18 | disposition home or self-care (01) | DRG 357 ==
LOC: ER 11:00 → EH 16:53 → 4N 18:18
PROVIDERS: ATTEND Surgery
PROC: 0WJP4ZZ Inspection of Gastrointestinal Tract, Percutaneous Endoscopic Approach (ICD-10-PCS; principal; 2020-05-29 13:15)
DX: K56.609 Unspecified intestinal obstruction, unspecified as to partial versus complete obstruction (principal); N17.9 Acute kidney failure, unspecified; E03.9 Hypothyroidism, unspecified; F32.9 Major depressive disorder, single episode, unspecified; D64.9 Anemia, unspecified; J44.9 Chronic obstructive pulmonary disease, unspecified; F17.200 Nicotine dependence, unspecified, uncomplicated; Z79.899 Other long term (current) drug therapy; Z11.59 Encounter for screening for other viral diseases; Z83.49 Family history of other endocrine, nutritional and metabolic diseases; Z88.3 Allergy status to other anti-infective agents; Z88.0 Allergy status to penicillin; Z88.2 Allergy status to sulfonamides
CPT/HCPCS: 36415; 74018; 74177; 790; 80048; 80053; 83690; 84443; 85025; 87040; 87635; 96361; 96365; 96375; 99140; 99285; C1758; C9290; C9803; J0330; J0690; J1100; J1885; J1956; J2250; J2270; J2370; J2405; J2704; J3010; J3490; J7030; J7120; S0028